=== PATIENT | male | born 1950 | race Caucasian/White ===

== ENCOUNTER 2020-12-03 06:35 | Outpatient (CLI) | payer BC, MEDICARE ==
[2020-12-03 07:09] LABS: BASOPHILS # (AUTO) 0.1 10^3/uL (0.0-0.1); BASOPHILS % (AUTO) 0.9 %; EOSINOPHILS # (AUTO) 0.4 10^3/uL (0.0-0.7); EOSINOPHILS % (AUTO) 5.7 %; HCT - HEMATOCRIT 39.1 % (42.0-52.0); HGB - HEMOGLOBIN 13.2 g/dL (14.0-18.0); LYMPHOCYTES # (AUTO) 2.3 10^3/uL (1.5-3.5); LYMPHOCYTES % (AUTO) 33.3 %; MEAN CORPUSCULAR HGB CONC 33.8 g/dL (32.0-36.0); MEAN CORPUSCULAR VOLUME 100.8 fL (80.0-94.0); MEAN PLATELET VOLUME 9.2 fL (7.4-11.4); MONOCYTES # (AUTO) 0.4 10^3/uL (0.0-1.0); MONOCYTES % (AUTO) 6.2 %; NEUTROPHILS # (AUTO) 3.7 10^3/uL (1.5-6.6); NEUTROPHILS % (AUTO) 53.2 %; PLT - PLATELET COUNT 86 10^3/uL (130-450); RED BLOOD COUNT 3.88 10^6/uL (4.70-6.10); RED CELL DISTRIBUTION WIDTH 13.7 % (12.0-15.0)
[2020-12-03 07:26] LABS: ALBUMIN 3.1 g/dL (3.2-5.5); BILIRUBIN,DIRECT 0.7 mg/dL (0.1-0.5); BILIRUBIN,TOTAL 2.8 mg/dL (0.2-1.0); CALCIUM 8.7 mg/dL (8.5-10.3); CREATININE 0.9 mg/dL (0.6-1.2); INR 1.2 (0.8-1.2); POTASSIUM 3.9 mmol/L (3.5-5.0); PT - PROTHROMBIN TIME 13.4 secs (9.9-12.6); TOTAL PROTEIN 7.1 g/dL (6.7-8.2)
[2020-12-03 11:48] LABS: ESTIMATED AVERAGE GLUCOSE 82 mg/dL (70-100); HEMOGLOBIN A1c% 4.5 % (4.27-6.07)
== END 2020-12-03 06:36 | disposition home or self-care (01) ==
LOC: LAB 06:35
DX: K74.69 Other cirrhosis of liver (principal); R73.03 Prediabetes
CPT/HCPCS: 36415; 80048; 80076; 82105; 82977; 83036; 83540; 84466; 85025; 85610

== ENCOUNTER 2021-05-06 08:00 | Outpatient (CLI) | payer BC, MEDICARE ==
[2021-05-06 06:20] LABS: ALBUMIN 2.6 g/dL (3.2-5.5); BILIRUBIN,TOTAL 3.5 mg/dL (0.2-1.0); CALCIUM 8.3 mg/dL (8.5-10.3); CREATININE 0.8 mg/dL (0.6-1.2); PHOSPHORUS 2.7 mg/dL (2.5-4.6); TOTAL PROTEIN 6.5 g/dL (6.7-8.2)
== END 2021-05-06 23:59 ==
LOC: LAB 08:00
PROVIDERS: ATTEND Internal Medicine
DX: K74.69 Other cirrhosis of liver (principal); R60.1 Generalized edema
CPT/HCPCS: 36415; 80069; 80076; 83540; 83880; 84466

== ENCOUNTER 2021-07-14 05:50 | Outpatient (CLI) | payer BC ==
[2021-07-14 06:08] LABS: BASOPHILS # (AUTO) 0.1 10^3/uL (0.0-0.1); BASOPHILS % (AUTO) 0.9 %; EOSINOPHILS # (AUTO) 0.4 10^3/uL (0.0-0.7); EOSINOPHILS % (AUTO) 6.4 %; HCT - HEMATOCRIT 36.1 % (42.0-52.0); HGB - HEMOGLOBIN 12.2 g/dL (14.0-18.0); LYMPHOCYTES # (AUTO) 1.7 10^3/uL (1.5-3.5); LYMPHOCYTES % (AUTO) 25.6 %; MEAN CORPUSCULAR HEMOGLOBIN 34.1 pg (27.0-31.0); MEAN CORPUSCULAR HGB CONC 33.8 g/dL (32.0-36.0); MEAN CORPUSCULAR VOLUME 100.8 fL (80.0-94.0); MEAN PLATELET VOLUME 9.5 fL (7.4-11.4); MONOCYTES # (AUTO) 0.5 10^3/uL (0.0-1.0); MONOCYTES % (AUTO) 7.2 %; NEUTROPHILS % (AUTO) 59.6 %; PLT - PLATELET COUNT 95 10^3/uL (130-450); RED BLOOD COUNT 3.58 10^6/uL (4.70-6.10); RED CELL DISTRIBUTION WIDTH 14.5 % (12.0-15.0); WHITE BLOOD COUNT 6.7 x10^3/uL (4.8-10.8)
[2021-07-14 06:18] LABS: ALBUMIN 2.4 g/dL (3.2-5.5); BILIRUBIN,DIRECT 1.2 mg/dL (0.1-0.5); BILIRUBIN,TOTAL 3.5 mg/dL (0.2-1.0); CALCIUM 8.1 mg/dL (8.5-10.3); POTASSIUM 3.8 mmol/L (3.5-5.0); TOTAL PROTEIN 7.2 g/dL (6.7-8.2)
[2021-07-15 10:24] LABS: INR 1.4 (0.8-1.2); PT - PROTHROMBIN TIME 15.2 secs (9.9-12.6)
== END 2021-07-14 05:51 | disposition home or self-care (01) ==
LOC: LAB 05:50
PROVIDERS: ATTEND Internal Medicine
DX: K74.69 Other cirrhosis of liver (principal)
CPT/HCPCS: 36415; 80048; 80076; 85025; 85610; 85730

== ENCOUNTER 2021-07-24 05:43 | Outpatient (CLI) | payer BC ==
[2021-07-24 06:11] LABS: BASOPHILS # (AUTO) 0.1 10^3/uL (0.0-0.1); EOSINOPHILS # (AUTO) 0.5 10^3/uL (0.0-0.7); HCT - HEMATOCRIT 35.5 % (42.0-52.0); HGB - HEMOGLOBIN 12.1 g/dL (14.0-18.0); LYMPHOCYTES # (AUTO) 1.8 10^3/uL (1.5-3.5); LYMPHOCYTES % (AUTO) 29.2 %; MEAN CORPUSCULAR HEMOGLOBIN 34.5 pg (27.0-31.0); MEAN CORPUSCULAR HGB CONC 34.1 g/dL (32.0-36.0); MEAN CORPUSCULAR VOLUME 101.1 fL (80.0-94.0); MEAN PLATELET VOLUME 9.3 fL (7.4-11.4); MONOCYTES # (AUTO) 0.4 10^3/uL (0.0-1.0); NEUTROPHILS # (AUTO) 3.4 10^3/uL (1.5-6.6); NEUTROPHILS % (AUTO) 54.6 %; PLT - PLATELET COUNT 93 10^3/uL (130-450); RED BLOOD COUNT 3.51 10^6/uL (4.70-6.10); RED CELL DISTRIBUTION WIDTH 14.6 % (12.0-15.0); WHITE BLOOD COUNT 6.3 x10^3/uL (4.8-10.8)
[2021-07-24 06:17] LABS: INR 1.3 (0.8-1.2); PT - PROTHROMBIN TIME 14.2 secs (9.9-12.6)
[2021-07-24 06:27] LABS: ALKALINE PHOSPHATASE 142 IU/L (42-121); ALT ALANINE AMINOTRANSFERASE 32 IU/L (10-60); AST ASPARTATE AMINOTRANSFERASE 57 IU/L (10-42); BILIRUBIN,DIRECT 1.1 mg/dL (0.1-0.5); BILIRUBIN,TOTAL 3.3 mg/dL (0.2-1.0); BUN - BLOOD UREA NITROGEN 14 mg/dL (6-20); CALCIUM 8.2 mg/dL (8.5-10.3); CARBON DIOXIDE - CO2 28 mmol/L (21-32); CHLORIDE 101 mmol/L (101-111); CREATININE 1.1 mg/dL (0.6-1.2); GAMMA GLUTAMYL TRANSPEPTIDASE 94 IU/L (8-55); GFR - MDRD 66 (>89); GLUCOSE 116 mg/dL (70-100); IONIZED CALCIUM IF INDICATED YES; POTASSIUM 4.1 mmol/L (3.5-5.0); SODIUM 134 mmol/L (135-145)
[2021-07-24 06:28] LABS: ALBUMIN 2.5 g/dL (3.2-5.5); TOTAL PROTEIN 7.4 g/dL (6.7-8.2)
[2021-07-24 06:36] LABS: VBG PH 7.416 (7.31-7.41)
[2021-07-24 06:37] LABS: CALCIUM, IONIZED 1.15 mmol/L (1.15-1.33)
[2021-07-24 13:24] LABS: ESTIMATED AVERAGE GLUCOSE 88 mg/dL (70-100); HEMOGLOBIN A1c% 4.7 % (4.27-6.07)
[2021-07-24 16:15] LABS: MAGNESIUM 2.3 mg/dL (1.7-2.8); PHOSPHORUS 2.8 mg/dL (2.5-4.6)
== END 2021-07-24 05:44 | disposition home or self-care (01) ==
LOC: LAB 05:43
PROVIDERS: ATTEND Internal Medicine
DX: K74.69 Other cirrhosis of liver (principal); R07.9 Chest pain, unspecified; R94.31 Abnormal electrocardiogram [ECG] [EKG]
CPT/HCPCS: 36415; 80048; 80076; 82330; 82977; 83036; 83735; 83880; 84100; 84484; 85025; 85610

== ENCOUNTER 2021-12-24 12:14 | Outpatient (CLI) | payer BC, MEDICARE ==
[2021-12-24 12:36] LABS: BASOPHILS % (AUTO) 0.5 %; EOSINOPHILS # (AUTO) 0.5 10^3/uL (0.0-0.7); EOSINOPHILS % (AUTO) 6.1 %; HCT - HEMATOCRIT 29.1 % (42.0-52.0); HGB - HEMOGLOBIN 9.7 g/dL (14.0-18.0); LYMPHOCYTES # (AUTO) 1.3 10^3/uL (1.5-3.5); LYMPHOCYTES % (AUTO) 15.8 %; MEAN CORPUSCULAR HGB CONC 33.3 g/dL (32.0-36.0); MEAN CORPUSCULAR VOLUME 105.1 fL (80.0-94.0); MEAN PLATELET VOLUME 10.2 fL (7.4-11.4); MONOCYTES # (AUTO) 0.8 10^3/uL (0.0-1.0); MONOCYTES % (AUTO) 9.6 %; NEUTROPHILS # (AUTO) 5.7 10^3/uL (1.5-6.6); NEUTROPHILS % (AUTO) 67.6 %; PLT - PLATELET COUNT 76 10^3/uL (130-450); RED BLOOD COUNT 2.77 10^6/uL (4.70-6.10); WHITE BLOOD COUNT 8.4 x10^3/uL (4.8-10.8)
[2021-12-24 12:52] LABS: INR 1.9 (0.8-1.2); PT - PROTHROMBIN TIME 21.4 secs (9.9-12.6)
[2021-12-24 13:04] LABS: ALBUMIN 3.5 g/dL (3.2-5.5); ALBUMIN/GLOBULIN RATIO 1.1 (1.0-2.2); BILIRUBIN,TOTAL 10.8 mg/dL (0.2-1.0); CALCIUM 8.5 mg/dL (8.5-10.3); CREATININE 1.8 mg/dL (0.6-1.2); TOTAL PROTEIN 6.7 g/dL (6.7-8.2)
[2021-12-24 19:56] LABS: POTASSIUM 2.5 mmol/L (3.5-5.0)
== END 2021-12-24 12:15 | disposition home or self-care (01) ==
LOC: LAB 12:14
PROVIDERS: ATTEND Internal Medicine
DX: K74.69 Other cirrhosis of liver (principal); K76.7 Hepatorenal syndrome
CPT/HCPCS: 36415; 80053; 81003; 85025; 85610

== ENCOUNTER 2021-12-28 10:31 | Outpatient (CLI) | payer BC, MEDICARE ==
[2021-12-28 11:00] LABS: ALBUMIN 3.2 g/dL (3.2-5.5); ALBUMIN/GLOBULIN RATIO 0.9 (1.0-2.2); BILIRUBIN,TOTAL 10.5 mg/dL (0.2-1.0); CALCIUM 8.4 mg/dL (8.5-10.3); CREATININE 1.8 mg/dL (0.6-1.2); MAGNESIUM 1.3 mg/dL (1.7-2.8); PHOSPHORUS 3.1 mg/dL (2.5-4.6); TOTAL PROTEIN 6.9 g/dL (6.7-8.2)
== END 2021-12-28 10:32 | disposition home or self-care (01) ==
LOC: LAB 10:31
PROVIDERS: ATTEND Internal Medicine
DX: K74.69 Other cirrhosis of liver (principal); K76.7 Hepatorenal syndrome
CPT/HCPCS: 36415; 80053; 83735; 84100

== ENCOUNTER 2022-01-04 15:52 | Outpatient (CLI) | payer BC, MEDICARE ==
[2022-01-04 16:14] LABS: BASOPHILS % (AUTO) 0.5 %; EOSINOPHILS # (AUTO) 0.3 10^3/uL (0.0-0.7); EOSINOPHILS % (AUTO) 3.8 %; HGB - HEMOGLOBIN 9.1 g/dL (14.0-18.0); LYMPHOCYTES # (AUTO) 1.5 10^3/uL (1.5-3.5); MEAN CORPUSCULAR HEMOGLOBIN 34.2 pg (27.0-31.0); MEAN CORPUSCULAR HGB CONC 32.5 g/dL (32.0-36.0); MEAN CORPUSCULAR VOLUME 105.3 fL (80.0-94.0); MEAN PLATELET VOLUME 9.5 fL (7.4-11.4); MONOCYTES # (AUTO) 0.6 10^3/uL (0.0-1.0); NEUTROPHILS # (AUTO) 5.2 10^3/uL (1.5-6.6); NEUTROPHILS % (AUTO) 67.2 %; PLT - PLATELET COUNT 88 10^3/uL (130-450); RED BLOOD COUNT 2.66 10^6/uL (4.70-6.10); RED CELL DISTRIBUTION WIDTH 16.8 % (12.0-15.0); WHITE BLOOD COUNT 7.7 x10^3/uL (4.8-10.8)
[2022-01-04 16:22] LABS: ALBUMIN 2.9 g/dL (3.2-5.5); ALBUMIN/GLOBULIN RATIO 0.7 (1.0-2.2); BILIRUBIN,TOTAL 8.4 mg/dL (0.2-1.0); CALCIUM 8.7 mg/dL (8.5-10.3); CREATININE 2.1 mg/dL (0.6-1.2); MAGNESIUM 1.8 mg/dL (1.7-2.8); PHOSPHORUS 3.8 mg/dL (2.5-4.6); POTASSIUM 4.7 mmol/L (3.5-5.0); TOTAL PROTEIN 7.1 g/dL (6.7-8.2)
== END 2022-01-04 15:53 | disposition home or self-care (01) ==
LOC: LAB 15:52
PROVIDERS: ATTEND Internal Medicine
DX: K74.69 Other cirrhosis of liver (principal); N18.32 Chronic kidney disease, stage 3b
CPT/HCPCS: 36415; 80053; 83735; 84100; 85025

== ENCOUNTER 2022-02-05 11:40 | Outpatient (CLI) | payer MEDICARE, BC ==
[2022-02-05 20:32] LABS: INR 1.5 (0.8-1.2); PT - PROTHROMBIN TIME 16.2 secs (9.9-12.6)
== END 2022-02-05 23:59 | disposition home or self-care (01) ==
LOC: LAB.R 11:40
PROVIDERS: ATTEND Internal Medicine
DX: K74.69 Other cirrhosis of liver (principal); N18.32 Chronic kidney disease, stage 3b
CPT/HCPCS: 85610

== ENCOUNTER 2022-02-05 12:26 | Outpatient (CLI) | payer BC, MEDICARE ==
[2022-02-05 12:33] LABS: BASOPHILS # (AUTO) 0.1 10^3/uL (0.0-0.1); BASOPHILS % (AUTO) 0.7 %; EOSINOPHILS # (AUTO) 0.4 10^3/uL (0.0-0.7); EOSINOPHILS % (AUTO) 5.3 %; HCT - HEMATOCRIT 28.3 % (42.0-52.0); HGB - HEMOGLOBIN 9.4 g/dL (14.0-18.0); LYMPHOCYTES # (AUTO) 1.6 10^3/uL (1.5-3.5); LYMPHOCYTES % (AUTO) 21.7 %; MEAN CORPUSCULAR HGB CONC 33.2 g/dL (32.0-36.0); MEAN CORPUSCULAR VOLUME 108.4 fL (80.0-94.0); MEAN PLATELET VOLUME 9.9 fL (7.4-11.4); MONOCYTES # (AUTO) 0.6 10^3/uL (0.0-1.0); MONOCYTES % (AUTO) 8.6 %; NEUTROPHILS # (AUTO) 4.5 10^3/uL (1.5-6.6); NEUTROPHILS % (AUTO) 63.6 %; PLT - PLATELET COUNT 79 10^3/uL (130-450); RED BLOOD COUNT 2.61 10^6/uL (4.70-6.10); RED CELL DISTRIBUTION WIDTH 15.2 % (12.0-15.0); WHITE BLOOD COUNT 7.1 x10^3/uL (4.8-10.8)
[2022-02-05 12:46] LABS: ALBUMIN 2.3 g/dL (3.2-5.5); ALBUMIN/GLOBULIN RATIO 0.5 (1.0-2.2); BILIRUBIN,TOTAL 3.8 mg/dL (0.2-1.0); CALCIUM 8.2 mg/dL (8.5-10.3); CREATININE 2.3 mg/dL (0.6-1.2); MAGNESIUM 1.9 mg/dL (1.7-2.8); POTASSIUM 4.5 mmol/L (3.5-5.0); TOTAL PROTEIN 6.9 g/dL (6.7-8.2)
== END 2022-02-05 12:27 | disposition home or self-care (01) ==
LOC: LAB.R 12:26
PROVIDERS: ATTEND Internal Medicine
DX: K74.69 Other cirrhosis of liver (principal); N18.32 Chronic kidney disease, stage 3b
CPT/HCPCS: 80053; 83735; 85025; 85610

== ENCOUNTER 2022-02-08 12:19 | Outpatient (CLI) | payer BC, MEDICARE | END 2022-02-08 12:20 | disposition critical access hospital (66) | LOC: EMS 12:19 | DX: M79.89 Other specified soft tissue disorders (principal); R50.9 Fever, unspecified; M79.661 Pain in right lower leg | CPT/HCPCS: A0425; A0427 ==

== ENCOUNTER 2022-02-08 12:54 | Inpatient (IN) | payer MEDICARE, BC ==
[2022-02-08] MEDS ORDERED: CLINDAMYCIN 900 MG/50 ML 50 ML IV ONE (13:44)
[2022-02-08] MEDS ORDERED: VANCOMYCIN INJ 3 GM in SODIUM CHLORIDE 0.9% 500 ML IV STA (13:44)
--- NOTE | 2022-02-08 13:46 | ED Physician Documentation ---
History of Present Illness - Stated complaint Stated Complaint: R LEG INFECTION - Chief complaint Chief Complaint: Ext Problem - History obtained from History obtained from: Patient - History of Present Illness Timing: Last night Pain level max: 8 Pain level now: 8 - Additonal information Additional information: Patient is a 71-year-old male who presents to the emergency department with increased redness and pain to the right lower extremity. He states he has a history of chronic edema in both legs, Has had cellulitis in the past. No fevers. No chills. He states that he has chronic liver disease. He states that when the redness and pain develops is usually when he has cellulitis. No fevers. No chills. Review of Systems Ten Systems: 10 systems reviewed and negative Constitutional: denies: Fever, Chills Throat: denies: Sore throat Cardiac: denies: Chest pain / pressure, Palpitations Respiratory: denies: Cough GI: denies: Abdominal Pain, Vomiting, Diarrhea Skin: denies: Rash Musculoskeletal: denies: Neck pain, Back pain Neurologic: denies: Headache PD PAST MEDICAL HISTORY - Past Medical History Past Medical History: Yes GI: Other (chronic liver disease) HEENT: None Psych: None Musculoskeletal: Other (chronic edema) - Allergies Allergies/Adverse Reactions: Allergies Allergy/AdvReac Type Severity Reaction Status Date / Time Penicillins Allergy Hives Verified 02/08/22 13:08 - Living Situation Living Situation: reports: With family Living Arrangement: reports: [facility] - Social History Does the pt have substance abuse?: No - Family History Family history: reports: Non contributory PD ED PE NORMAL - Vitals Vital signs reviewed: Yes - General General: Alert and oriented X 3, No acute distress - HEENT HEENT: Moist mucous membranes - Neck Neck: Supple, no meningeal sign - Cardiac Cardiac: RRR - Respiratory Respiratory: No respiratory distress, Clear bilaterally - Abdomen Abdomen: Soft, Non tender, Non distended - Derm Derm: Warm and dry - Extremities Extremities: Other (severe edema and swelling B LE, erythema to the R LE. NVI. no drainage. erythema is from the ankle to the knee) - Neuro Neuro: Alert and oriented X 3 Results - Vitals Vitals: Vital Signs - 24 hr 02/08/22 02/08/22 13:08 13:13 Temperature 37.1 C 37.1 C Heart Rate 100 100 Respiratory 22 22 Rate Blood Pressure 138/51 H 138/51 H O2 Saturation 99 99 Oxygen O2 Source Room air - Labs Labs: Laboratory Tests 02/08/22 02/08/22 02/08/22 14:02 14:02 14:02 WBC 11.0 H RBC 2.61 L Hgb 9.4 L Hct 28.5 L MCV 109.2 H MCH 36.0 H MCHC 33.0 RDW 15.1 H Plt Count 70 L MPV 10.0 Neut # (Auto) 9.7 H Lymph # (Auto) 0.8 L Dukes # (Auto) 0.4 Eos # (Auto) 0.1 Baso # (Auto) 0.0 Absolute Nucleated RBC 0.00 Nucleated RBC % 0.0 ESR PT 16.4 H INR 1.5 H Sodium 133 L Potassium 5.4 H Chloride 100 L Carbon Dioxide 23 Anion Gap 10.0 BUN 39 H Creatinine 2.3 H Estimated GFR (MDRD) 28 L Glucose 135 H Lactic Acid Calcium 8.2 L Total Bilirubin 5.6 H AST 61 H ALT 33 Alkaline Phosphatase 169 H C-Reactive Protein 6.5 H Total Protein 7.2 Albumin 2.4 L Globulin 4.8 H Albumin/Globulin Ratio 0.5 L Lipase 53 H Urine Color Urine Clarity Urine pH Ur Specific [place] Urine Protein Urine Glucose (UA) Urine Ketones Urine Occult Blood Urine Nitrite Urine Bilirubin Urine Urobilinogen Ur Leukocyte Esterase Ur Microscopic Review Urine Culture Comments 02/08/22 02/08/22 02/08/22 14:02 14:02 14:48 WBC RBC Hgb Hct MCV MCH MCHC RDW Plt Count MPV Neut # (Auto) Lymph # (Auto) Dukes # (Auto) Eos # (Auto) Baso # (Auto) Absolute Nucleated RBC Nucleated RBC % ESR 69 H PT INR Sodium Potassium Chloride Carbon Dioxide Anion Gap BUN Creatinine Estimated GFR (MDRD) Glucose Lactic Acid 2.9 H Calcium Total Bilirubin AST ALT Alkaline Phosphatase C-Reactive Protein Total Protein Albumin Globulin Albumin/Globulin Ratio Lipase Urine Color DARK YELLOW Urine Clarity CLEAR Urine pH 5.0 Ur Specific [place] 1.020 Urine Protein NEGATIVE Urine Glucose (UA) NEGATIVE Urine Ketones NEGATIVE Urine Occult Blood NEGATIVE Urine Nitrite NEGATIVE Urine Bilirubin NEGATIVE Urine Urobilinogen 0.2 (NORMAL) Ur Leukocyte Esterase NEGATIVE Ur Microscopic Review NOT INDICATED Urine Culture Comments NOT INDICATED PD MEDICAL DECISION MAKING - ED course Complexity details: reviewed results, re-evaluated patient, considered differential, d/w patient, d/w family, d/w medical cost consultant ED course: Patient is a 71-year-old male with significant cellulitis of the right lower extremity, leukocytosis and elevated lactate. The lactate may be falsely elevated secondary to his chronic liver disease. Blood cultures were drawn. IV antibiotic started. We will admit for further care. Discussed the case with Dr. Padilla, hospitalist who accepts. When Dr. Padilla was speaking with the patient, he initially declined admission stating he wanted to go home, but after speaking with his and speaking with the patient again, he agrees to be admitted. This document was made in part using voice recognition software. While efforts are made to proofread this document, sound alike and grammatical errors may occur. Departure - Departure Disposition: 66 [facility] DC/Xfer Clinical Impression: Chronic liver disease, Super obesity Cellulitis Qualifiers: Site of cellulitis: extremity Site of cellulitis of extremity: lower extremity Laterality: right Qualified Code(s): L03.115 - Cellulitis of right lower limb Chronic renal failure Qualifiers: Chronic kidney disease stage: unspecified stage Qualified Code(s): N18.9 - Chronic kidney disease, unspecified Condition: Stable Discharge Date/Time: 02/08/22 16:00
[2022-02-08 14:11] LABS: BASOPHILS % (AUTO) 0.3 %; EOSINOPHILS # (AUTO) 0.1 10^3/uL (0.0-0.7); EOSINOPHILS % (AUTO) 0.7 %; HCT - HEMATOCRIT 28.5 % (42.0-52.0); HGB - HEMOGLOBIN 9.4 g/dL (14.0-18.0); LYMPHOCYTES # (AUTO) 0.8 10^3/uL (1.5-3.5); LYMPHOCYTES % (AUTO) 6.8 %; MEAN CORPUSCULAR VOLUME 109.2 fL (80.0-94.0); MONOCYTES # (AUTO) 0.4 10^3/uL (0.0-1.0); MONOCYTES % (AUTO) 3.9 %; NEUTROPHILS # (AUTO) 9.7 10^3/uL (1.5-6.6); PLT - PLATELET COUNT 70 10^3/uL (130-450); RED BLOOD COUNT 2.61 10^6/uL (4.70-6.10); RED CELL DISTRIBUTION WIDTH 15.1 % (12.0-15.0)
[2022-02-08] MEDS ORDERED: MORPHINE 2 MG/ML CARPUJECT IVP STA (14:13)
[2022-02-08 14:15] LABS: INR 1.5 (0.8-1.2); PT - PROTHROMBIN TIME 16.4 secs (9.9-12.6)
[2022-02-08 14:24] LABS: LACTIC ACID, VENOUS 2.9 mmol/L (0.5-2.2)
[2022-02-08 14:28] LABS: ALBUMIN 2.4 g/dL (3.2-5.5); ALBUMIN/GLOBULIN RATIO 0.5 (1.0-2.2); BILIRUBIN,TOTAL 5.6 mg/dL (0.2-1.0); CALCIUM 8.2 mg/dL (8.5-10.3); CRP - C-REACTIVE PROTEIN 6.5 mg/dL (0-1.0); POTASSIUM 5.4 mmol/L (3.5-5.0); TOTAL PROTEIN 7.2 g/dL (6.7-8.2)
[2022-02-08 14:47] LABS: CREATININE 2.3 mg/dL (0.6-1.2)
[2022-02-08] MEDS ORDERED: HYDROcod/ACETAM 5/325 MG TABLET PO STA (14:54)
[2022-02-08 14:57] LABS: BILIRUBIN,URINE NEGATIVE (NEGATIVE); GLUCOSE, URINE (UA) NEGATIVE (NEGATIVE); KETONES,URINE (UA) NEGATIVE (NEGATIVE); LEUKOCYTE ESTERASE, URINE NEGATIVE (NEGATIVE); NITRITE,URINE NEGATIVE (NEGATIVE); OCCULT BLOOD,URINE NEGATIVE (NEGATIVE); PROTEIN,URINE NEGATIVE (NEGATIVE); UROBILINOGEN,URINE 0.2 (NORMAL) E.U./dL (NORMAL)
[2022-02-08] MEDS ORDERED: ONDANSETRON ODT 4 MG TABLET TL PRN (14:57)
[2022-02-08] MEDS ORDERED: oxyCODONE 5 MG TABLET PO PRN (14:57)
[2022-02-08] MEDS ORDERED: SODIUM CHLORIDE FLUSH 0.9% 10 ML SYRINGE IVP PRN (14:57)
[2022-02-08 14:58] LABS: CLARITY,URINE CLEAR (CLEAR)
--- NOTE | 2022-02-08 15:54 | HISTORY & PHYSICAL EXAMINATION ---
Chief Complaint - Chief Complaint Chief Complaint: right leg redness and infection History of Present Illness - Admitted From Admitted From:: home via ambulance - History Obtained From Records Reviewed: [facility] History obtained from: [facility] Exam Limitations: none - History of Present Illness HPI Comment/Other: 71-year-old male who states that he has long-term alcoholic liver disease, that was brought in by ambulance because his right lower leg started to get infected yesterday and is getting worse. He has a history of chronic leg edema. In the emergency room temperature was 37.1. Heart rate 100. Blood pressure 138/51. 99% on room air. He is 5 feet 9 inches tall weighs 160 kg. On examination he has cellulitis that starts in the top of his right foot and goes all the way up the lateral aspect of his right leg. His white cell count is 11,000. Hemoglobin is 9.4. Platelets 70. INR 1.5. BUN is 39, creatinine 2.3. A year ago his creatinine was normal. Liver enzymes show a bili of 5.6, AST 61, ALT 33. C-reactive protein is 6.5. Blood cultures have been done. He is received vancomycin and clindamycin in the emergency room since he is allergic to penicillin. The hospitalist service has now been asked to admit the patient. History - Past Medical History GI: reports: Other (chronic liver disease) HEENT: reports: None Psych: reports: None Musculoskeletal: reports: Other (chronic edema) - Family & Social History Living arrangement: detention Living Situation: With family Meds/Allgy - Allergies Allergies/Adverse Reactions: Allergies Allergy/AdvReac Type Severity Reaction Status Date / Time Penicillins Allergy Hives Verified 02/08/22 13:08 Exam - Vital Signs Vital Signs: Vital Signs x48h Temp Pulse Resp BP Pulse Ox 02/08/22 13:13 37.1 C 100 22 138/51 H 99 02/08/22 13:08 37.1 C 100 22 138/51 H 99 Conclusion/Plan - Problem List (1) Cellulitis Qualifiers: Site of cellulitis: extremity Site of cellulitis of extremity: lower extremity Laterality: right Qualified Code(s): L03.115 - Cellulitis of right lower limb - Lab Results Lab results reviewed: Yes Fish Bones: 02/08/22 14:02 02/08/22 14:02
--- NOTE | 2022-02-08 15:56 | ADVANCE CARE PLANNING NOTE ---
Advance Care Planning - Planning Encounter Date: 02/08/22 Time: 15:55 Purpose: Establish care goals in a patient who does not want to be admitted Parties in Attendance: , patient, hospitalist Decisional Capacity of the Patient: Alert, oriented, and says that he still makes his own decisions - Diagnosis for Encounter (1) Alcoholic liver disease Summary: 71-year-old gentleman that was diagnosed with cirrhosis in 2014. At that point in time he had "a year to live". He is managed outlive that prediction. Recently hospitalized from November 28 December 17 [facility]. Discharge after aggressive diuresis and severe renal failure. He was told that he had a few weeks to live. Overall he is very angry with providers and feels like we are bad at predicting. Is worse creatinine at was 3.8. Bilirubin and creatinine have improved since being home and his medications adjusted. Meld score is 19.6% on today's calculation from 27 points - Encounter Subjective/Patient's Story: Cirrhosis gradually worsened over the last 2 years. Up until now he has been actually been able to travel quite a bit, maintain a good quality of life. He was recently hospitalized [facility] November 28 December 17 and this is the first time his been hospitalized for his Mazariegos. He is very angry about his experience with them. Has no kesha or trust in the system. He was discharged from [facility] with a poor prognosis and he was told that he was "going to in the next few weeks". He has survived that prognosis and feels that they are wrong in their assessment. Overall he does recognize that he has a terrible disease with his cirrhosis. But he does not th ink he is going to immediately. He has managed to survive since 2014 when he was first diagnosed. As such, he is declined hospice referral. He also does not want to be sedated with morphine or Ativan. His primary care provider has sent in paperwork for POLST form and resuscitation status. He and his are going to be discussing that and had not gotten around to it. As such at this time he wishes to be a full code since he has not discussed it fully with his . Objective/Medical Story: I have requested records from [facility] and those are pending. He is followed by Dr. Mitchel Davis at [facility] on [address]. Last seen by video teleconference about a week ago. He was diagnosed with nonalcoholic liver disease in 2014 and has had steady progression of his disease since then. He states that he has had chronic leg edema even before the cirrhosis. He had a "spider bite" that caused bubbling of his skin years ago, approximately 2004, and that is why his legs are swollen and red in addition to the cirrhosis. He describes his life is relatively stable and spite of this diagnosis of Mazariegos. He was able to walk, dress himself, feed himself. They have gone to [place] 3 or 4 times since his diagnosis. Starting in 2019 he developed edema and decreased mobility around Janelle time. Without any intervention or change in medication, he would then spontaneously urinate quite a bit in June 2020 and got rid of all the excess water weight he had. He did that again in the fall 2020 and again self diuresed in June 2021. He is very angry that his is giving me the history. He keeps on interjecting saying "I am perfectly able to tell my story". Unfortunately, the patient is very r epetitive, conversation points wander and he cannot answer me at time, and I do need to refer to his several times. That makes him even angrier. He had already stated that he wanted to leave and go home in the emergency room and I had discontinued his admit orders. He then changed his mind and asked to stay only overnight. But he keeps on interjecting that he may want to leave now and change his mind again. Even though he was able to self diurese in June 2021, he started having increased water retention, leg edema by the Spring. It was complicated by knee pain. So even though he needed to increase his diuretics he was skipping doses because of his knee pain and the frequent urination that the diuretic would induce. This finally culminated in a creatinine that was elevated, severe leg edema, and a new shortness of breath that he hadn't had before. He was admitted to [facility] November 28 through December 17. He then starts raising his voice again and telling me that they almost killed him. He states they over diuresed him and "almost killed my kidneys". They told him that he had a limited life span and probably only had a few more weeks to live. They did r ecommend hospice but he is refused. He had a "bad experience with hospice" when his mother in [place]. He also wants to maintain his sensorium and disagrees with the use of morphine and Ativan to help with the dying process. Since discharge, he has been followed by his primary care provider who has judiciously adjusted medications. The patient is satisfied in improving [facility] wrong because he is "still alive even after this and I was going to be ". He also explains that his primary care provider disagrees with [facility] and that his prognosis is not that serious. He has had increasing edema again over the last few days. Starting yesterday his right leg became slightly red and painful, and over the course the day is continue to progress, so that now, it is up to his right knee. He is become very sedentary over the last couple of weeks. He is now using a lift chair. Because of that he has developed a having skin breakdown of his sacrum. He denies fever, chills. Denies any abdominal pain. Describes chronic leg edema, abdominal wall edema, and scrotal edema that severe. In the emergency room temperature was 37.1. Heart rate 100. Blood pressure 138/51. Respirations 22. 99% on room air. He is a morbidly obese male. Oriented to person and place. Prefers to lay on his left side and reminds the nurses of that repetitively. He repeats his story at least 5 times about his dislike of [facility] and that they almost killed him. He has diffuse anasarca, but bedside ultrasound in the ER does not show fluid wave. Minimal ascites. Scrotum is huge. The legs have skin changes chronic venous stasis with deformity of the ankles. The right leg is covered in a red hot skin discoloration starting at the top of his right foot and extending all the way up two thirds of the stuart. He has satellite red dots above that going almost to the knee. He is allergic to penicillin and has received vancomycin, clindamycin, in the ER. We are placing him in observation status. He states he does not want to stay longer than 1 midnight. History - Past Medical History Cardiovascular: reports: None Respiratory: reports: Shortness of breath (With his anasarca) Endocrine/Autoimmune: reports: Other (Morbid obesity) GI: reports: Cirrhosis, Other (chronic liver disease) : reports: Chronic bladder infection (Since childhood. Denies history of prostate enlargement) HEENT: reports: None Psych: reports: None Musculoskeletal: reports: Chronic back pain, Other (chronic edema) Derm: reports: None, Other (Specifically denies history of MRSA) Goals of Care: He would like to go home as soon as possible. Has reluctantly agreed to 1 overnight stay and will reassess tomorrow morning. He would like to go home with oral antibiotics. He will follow-up with his primary care provider about what he needs to do next. Plan: 1. Overnight stay 2. Discharged on Keflex 3. Full CODE STATUS 4. Consider filling out POLST form in the next 1 to 2 weeks Code Status: Attempt Resuscitation Time spent on advance care plannin minutes
--- NOTE | 2022-02-08 16:15 | HISTORY & PHYSICAL EXAMINATION ---
Chief Complaint - Chief Complaint Chief Complaint: painful right leg redness History of Present Illness - Admitted From Admitted From:: home - History Obtained From Records Reviewed: [facility] History obtained from: and patient Exam Limitations: he is repetitive, raised voice at RNs alternates between wanting leave/stay - History of Present Illness HPI Comment/Other: I have requested records from [facility] and those are pending. He is followed by Dr. Mitchel Davis at [facility] on [address]. Last seen by video teleconference about a week ago. He was diagnosed with nonalcoholic liver disease in 2014 and has had steady progression of his disease since then. He states that he has had chronic leg edema even before the cirrhosis. He had a "spider bite" that caused bubbling of his skin years ago, approximately 2004, and that is why his legs are swollen and red in addition to the cirrhosis. He describes his life is relatively stable and spite of this diagnosis of Mazariegos. He was able to walk, dress himself, feed himself. [place] have gone to [place] 3 [place] 4 times since his diagnosis. Starting in 2019 he developed edema and decreased mobility around [place] time. Without any intervention or change in medication, he would then spontaneously urinate quite a bit in June 2020 and got rid of all the excess water weight he had. He did that again in the fall 2020 and again self diuresed in June 2021. He is very angry that his is giving me the history. He keeps on interjecting saying "I am perfectly able to tell my story". Unfortunately, the patient is very repetitive, conversation points wander and he cannot answer me at time, and I do need to refer to his several times. That makes him even angrier. He had already stated that he wanted to leave and go home in the emergency room and I had discontinued his admit orders. He then changed his mind and asked to stay only overnight. But he keeps on interjecting that he may want to leave now and change his mind again. Even though he was able to self diurese in June 2021, he started having increased water retention, leg edema by the Spring. It was complicated by knee pain. So even though he needed to increase his diuretics he was skipping doses because of his knee pain and the frequent urination that the diuretic would induce. This finally culminated in a creatinine that was elevated, severe leg edema, and a new shortness of breath that he hadn't had before. He was admitted to [facility] November 28 through December 17. He then starts raising his voice again and telling me that they almost killed him. He states they over diuresed him and "almost killed my kidneys". They told him that he had a limited life span and probably only had a few more weeks to live. They did recommend hospice but he is refused. He had a "bad experience with hospice" when his mother in [place]. He also wants to maintain his sensorium and disagrees with the use of morphine and Ativan to help with the dying process. Since discharge, he has been followed by his primary care provider who has judiciously adjusted medications. The patient is satisfied in improving [facility] wrong because he is "still alive even after this and I was going to be ". He also explains that his primary care provider disagrees with [facility] and that his prognosis is not that serious. He has had increasing edema again over the last few days. Starting yesterday his right leg became slightly red and painful, and over the course the day is continue to progress, so that now, it is up to his right knee. He is become very sedentary over the last couple of weeks. He is now using a lift chair. Because of that he has developed a having skin breakdown of his sacrum. He denies fever, chills. Denies any abdominal pain. Describes chronic leg edema, abdominal wall edema, and scrotal edema that severe. In the emergency room temperature was 37.1. Heart rate 100. Blood pressure 138/51. Respirations 22. 99% on room air. He is a morbidly obese male. Oriented to person and place. Prefers to lay on his left side and reminds the nurses of that repetitively. He repeats his story at least 5 times about his dislike of [facility] and that they almost killed him. He has diffuse anasarca, but bedside ultrasound in the ER does not show fluid wave. Minimal ascites. Scrotum is huge. The legs have skin changes chronic venous stasis with deformity of the ankles. The right leg is covered in a red hot skin discoloration starting at the top of his right foot and extending all the way up two thirds of the stuart. He has satellite red dots above that going almost to the knee. He is allergic to penicillin and has received vancomycin, clindamycin, in the ER. We are placing him in observation status. He states he does not want to stay longer than 1 midnight. History - Past Medical History Cardiovascular: reports: None Respiratory: reports: Shortness of breath (With his anasarca) Endocrine/Autoimmune: reports: Other (Morbid obesity) GI: reports: Cirrhosis, Other (chronic liver disease) : reports: Chronic bladder infection (Since childhood. Denies history of prostate enlargement) HEENT: reports: None Psych: reports: None Musculoskeletal: reports: Chronic back pain, Other (chronic edema) Derm: reports: None, Other (Specifically denies history of MRSA) - Family & Social History Family History Comment/Other: Dad at approximately 69 of heart disease. Mom at approximately age 70 of pancreatic cancer. 1 sister is healthy. No children Living arrangement: At home Living Situation: With spouse/s.o. Social History Notes: He never had a problem with alcohol abuse. Was a non- smoker. Originally from [facility]. Spent many years in [place] and [place] but it grew too hot so he moved to [facility] 25 years ago. 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 - Substance History Use: Uses substance without health or social issues: NONE Abuse: Recurrent use of substance despite neg consequences: NONE Dependence: Experiences withdrawal or developed tolerances: NONE - POLST Patient has POLST: No POLST Status: Full Code Meds/Allgy - Allergies Allergies/Adverse Reactions: Allergies Allergy/AdvReac Type Severity Reaction Status Date / Time Penicillins Allergy Hives Verified 02/08/22 13:08 Review of Systems - Constitutional Constitutional: reports: Fatigue. denies: Fever, Chills, Malaise, Weakness, Poor appetite, Diaphoresis, Night sweats - Eyes Eyes: denies: Pain, Irritation, Amaurosis - Ears, Nose & Throat Ears, Nose & Throat: denies: Ear pain, Hearing loss, Hearing aids, Tinnitus, Sore throat, Hoarseness - Cardiovascular Cariovascular: reports: Edema, Exertional dyspnea, Decr. exercise tolerance. denies: Irregular heart rate, Palpitations, Chest pain, Lightheadedness, Syncope, Orthopnea - Respiratory Respiratory: reports: SOB with exertion. denies: Cough, Sputum production, Wheezing, SOB at rest - Gastrointestinal Gastrointestinal: denies: Abdominal pain, Abdominal distention, Constipation, Diarrhea - Genitourinary Genitourinary: reports: Frequency, Incontinence, Nocturia - Musculoskeletal Musculoskeletal: reports: Back pain. denies: Muscle pain, Muscle aches - Integumentary Integumentary: reports: Other (Recent skin breakdown of sacrum due to sedentary status and a lift chair). denies: Rash, Pruritis, Lesions - Neurological Neurological: reports: General weakness. denies: Focal weakness, Headache, Dizziness, Memory problems, Pre-existing deficit, Abnormal gait - Psychiatric Psychiatric: denies: Depression, Anxiety, Suicidal - Endocrine Endocrine: denies: Polyuria, Polydypsia, Polyphagia - Hematologic/Lymphatic Hematologic/Lymphatic: denies: Anemia, Bruising, Petechiae Prior Level of Functionality: When he was discharged from [facility] he was discharged with a walker and a cane but he is rarely used it. He has been able to be independent with his ambulation until this week. Dresses himself, needs help with that. Never really did housework or mow the lawn and such. Exam - Vital Signs Reviewed Vital Signs: Yes Vital Signs: Vital Signs x48h Temp Pulse Resp BP Pulse Ox 02/08/22 15:13 37.0 C 98 22 130/60 100 02/08/22 13:13 37.1 C 100 22 138/51 H 99 02/08/22 13:08 37.1 C 100 22 138/51 H 99 - Physical Exam General Appearance: positive: Alert, Other (Morbid obese white male, yelling with pain when his right leg is touched, and yelling when I speak to his and he does not want me to get the story from her.) Eyes Bilateral: positive: PERRL, EOMI ENT: positive: No signs of dehydration Neck: positive: No JVD. negative: Stiff neck Respiratory: positive: No respiratory distress. negative: Wheezes, Rales, Rhonchi Cardiovascular: positive: Regular rate & rhythm Abdomen: positive: Nml bowel sounds, No distention, Other (Large, obese pannus with secondary chronic red changes in the pannus between belly and suprapubic area.) Skin: positive: Other (Cellulitis changes of the right lower extremity that extend all the way up the stuart. There is demarcation and then above that there is red dots of spreading cellulitis.It is red, hot, some oozing from cracks and blistering of the anterior stuart) Extremities: positive: Full ROM, Pedal edema (Severe edema of both legs that extends to the lower abdominal pannus, scrotum, sacrum), Other (Ankles deformed from chronic edema as are toes) Neurologic/Psychiatric: positive: Oriented x3, CN's nml (2-12), Motor nml (And that he is moving all extremities but needs a 4 person max assist to be able to transfer him from [facility] to [facility], and needs a two-person assist to roll him over on his left side where he prefers) Conclusion/Plan - Problem List (1) Cellulitis Conclusion/Plan: Long discussion with pharmacy. I was thinking of linezolid to avoid vancomycin toxicity of his kidneys. However with his cirrhosis linezolid would be contraindicated. He has received clindamycin and vancomycin in the ED. I explained to he and his that he does have a penicillin allergy but I should be able to give him Rocephin. He states that he has no antibiotic resistance that he is aware of. Never been diagnosed with MRSA. The vancomycin that we given today should last for at last 48 to 72 hours on the basis of his creatinine. He states that he does not want to stay any longer than tonight. And as such I think he may be able to go home with Keflex 500 mg p.o. 4 times daily depending on how he responds overnight. Qualifiers: Site of cellulitis: extremity Site of cellulitis of extremity: lower extremity Laterality: right Qualified Code(s): L03.115 - Cellulitis of right lower limb (2) Chronic renal failure, stage 3b Conclusion/Plan: Due to hepatorenal failure. Patient states that he is stabilized over the last few weeks. His max creatinine was 3.8 at [facility] as far as he remembers. He is now down to 2.3. We will monitor carefully in the face of vancomycin. He will receive 1 L of fluid. Will resume his usual dosing of medications once pharmacy has verified the list. (3) Cirrhosis, non-alcoholic Conclusion/Plan: His meld score is 27 points or 19.6% mortality. He and his state that they are familiar with a meld score and that it was much worse when he was in the hospital. While they acknowledge that the overall prognosis is poor for him. That he is not going to do well in the next few months, they feel that he will outlive the predicted mortality that has been stated. They have been very hesitant to go to hospice because of their previous experience with hospice and the fact that they feel that he will be oversedated with morphine or Ativan.. Please see advance care planning conversation held under different note (4) Anasarca Conclusion/Plan: As stated above for cirrhosis. We will review his medication list and resume his home medications. (5) Hyperkalemia Conclusion/Plan: Unclear if this is true hyperkalemia or lysis in his blood draw. We will look at records from [facility]. Recheck tomorrow morning. (6) Super obesity Conclusion/Plan: Requires 4 person assist at times to reposition in the bed. He states that he is ambulatory at home. If he is successfully discharged tomorrow, gently explore if he would be candidate for home health PT (7) Anemia Conclusion/Plan: He does not give a history of variceal bleeding. No recent change in the color of his stool. Has had chronic kidney disease for a while now he tells me. I will review [facility] records. Qualifiers: Anemia type: due to chronic kidney disease - Lab Results Lab results reviewed: Yes Wolf Bones: 02/08/22 14:02 02/08/22 14:02
[2022-02-08 17:08] LABS: B. PARAPERTUSSIS- RESP PCR PAN NOT DETECTED; B. PERTUSSIS- RESP PCR PANEL NOT DETECTED; C. PNEUMONIAE- RESP PCR PANEL NOT DETECTED; CORONAVIRUS 229E-RESP PCR NOT DETECTED; CORONAVIRUS HKU1-RESP PCR NOT DETECTED; CORONAVIRUS NL63-RESP PCR NOT DETECTED; CORONAVIRUS OC43-RESP PCR NOT DETECTED; HUMAN METAPNEUMOVIRUS NOT DETECTED; INFLUENZA A- RESP PCR PANEL NOT DETECTED; INFLUENZA B - RESP PCR PANEL NOT DETECTED; M. PNEUMONIAE- RESP PCR PANEL NOT DETECTED; PARAINFLUENZA VIRUS 1 NOT DETECTED; PARAINFLUENZA VIRUS 2 NOT DETECTED; PARAINFLUENZA VIRUS 3 NOT DETECTED; PARAINFLUENZA VIRUS 4 NOT DETECTED; RHINOVIRUS/ENTEROVIRUS NOT DETECTED; RSV- RESP PCR PANEL NOT DETECTED; SARS-CoV-2 -RESP PCR PANEL NOT DETECTED
[2022-02-08 17:43] LABS: LACTIC ACID, VENOUS 4.4 mmol/L (0.5-2.2)
[2022-02-08] MEDS: BACLOFEN 10 MG TABLET PO SCH ×2 (19:10→22:22)
[2022-02-08] MEDS: SODIUM CHLORIDE FLUSH 0.9% 10 ML SYRINGE IVP SCH (19:16)
[2022-02-08] MEDS: SODIUM CHLORIDE 0.9% 1,000 ML IV SCH (19:16)
[2022-02-08 21:00] LABS: LACTIC ACID, VENOUS 4.6 mmol/L (0.5-2.2)
[2022-02-08] MEDS ORDERED: BACLOFEN 10 MG TABLET PO SCH (22:00)
[2022-02-08] MEDS: LACTULOSE 10 GM /15 ML UDC PO SCH ×2 (22:21→22:26)
[2022-02-08] MEDS: SPIRONOLACTONE 25 MG TABLET PO SCH ×2 (22:21→22:26)
[2022-02-09] MEDS ORDERED: HYDROcod/ACETAM 5/325 MG TABLET PO PRN (00:50)
[2022-02-09 01:04] LABS: LACTIC ACID, VENOUS 4.9 mmol/L (0.5-2.2)
[2022-02-09] MEDS: SODIUM CHLORIDE FLUSH 0.9% 10 ML SYRINGE IVP SCH ×3 (01:52→17:18)
[2022-02-09] MEDS: SODIUM CHLORIDE 0.9% 1,000 ML IV SCH (04:57)
[2022-02-09] MEDS: BACLOFEN 10 MG TABLET PO SCH ×3 (05:00→21:25)
[2022-02-09 05:09] LABS: BASOPHILS % (AUTO) 0.3 %; EOSINOPHILS % (AUTO) 0.2 %; HGB - HEMOGLOBIN 8.3 g/dL (14.0-18.0); LYMPHOCYTES # (AUTO) 1.1 10^3/uL (1.5-3.5); LYMPHOCYTES % (AUTO) 8.8 %; MEAN CORPUSCULAR HEMOGLOBIN 36.4 pg (27.0-31.0); MEAN CORPUSCULAR HGB CONC 33.2 g/dL (32.0-36.0); MEAN CORPUSCULAR VOLUME 109.6 fL (80.0-94.0); MEAN PLATELET VOLUME 9.5 fL (7.4-11.4); MONOCYTES # (AUTO) 0.5 10^3/uL (0.0-1.0); MONOCYTES % (AUTO) 4.1 %; NEUTROPHILS # (AUTO) 10.8 10^3/uL (1.5-6.6); NEUTROPHILS % (AUTO) 85.7 %; PLT - PLATELET COUNT 51 10^3/uL (130-450); RED BLOOD COUNT 2.28 10^6/uL (4.70-6.10); RED CELL DISTRIBUTION WIDTH 15.2 % (12.0-15.0); WHITE BLOOD COUNT 12.6 x10^3/uL (4.8-10.8)
[2022-02-09 05:17] LABS: INR 1.8 (0.8-1.2); PT - PROTHROMBIN TIME 19.4 secs (9.9-12.6)
[2022-02-09 05:19] LABS: CALCIUM 8.1 mg/dL (8.5-10.3); CREATININE 2.3 mg/dL (0.6-1.2); POTASSIUM 5.2 mmol/L (3.5-5.0)
[2022-02-09] MEDS ORDERED: TAMSULOSIN 0.4 MG CAPSULE PO SCH (08:00)
[2022-02-09] MEDS: TAMSULOSIN 0.4 MG CAPSULE PO SCH ×2 (08:02→10:43)
--- NOTE | 2022-02-09 08:38 | PROVIDER PROGRESS NOTE ---
Assessment/Plan - Problem List (1) Gram-negative bacteremia Assessment/Plan: Blood cultures are showing growth of a gram-negative bacillus. The source is likely his cellulitis. Will admit the patient to inpatient status and treat with IV antibiotics. Will increase Rocephin dose due to his large BMI, discussed with pharmacy. This plan was discussed with the patient and he is agreeable. (2) Sepsis Assessment/Plan: He has elevated white count 11 at admission, today up to 12.6. He has elevated lactic acid level that was 4.9 and 4.4 overnight and elevated ESR and CRP. He has hypotension (diastolic blood pressures lower than 40). He has evidence of infection (cellulitis) and now has positive evidence of bacteremia. He will be admitted to inpatient status. Follow his lactic acid level, CRP, ESR and WBC. Treat the underlying gram-negative bacteremia and leg cellulitis, awaiting identification and sensitivities of the gram-negative bacteria to tailor antibio tics. He will receive 1 L of fluid then stop iv fluids due to anasarca. (3) Cellulitis Qualifiers: Site of cellulitis: extremity Site of cellulitis of extremity: lower extremity Laterality: right Qualified Code(s): L03.115 - Cellulitis of right lower limb Assessment/Plan: Compared to images that he showed me on his iPhone, the area of redness of thr R stuart is unchanged. He had benefit from getting Vicodin and does not want anything stronger than that he told me. Will treat with IV antibiotics, pain meds, elevation (4) Chronic renal failure, stage 3b Conclusion/Plan: Due to hepatorenal failure. Patient states that this stabilized over the last few weeks. His max creatinine was 3.8 at [facility] as far as he remembers. He was down to 2.3 at admission yesterday We will monitor carefully in the face of vancomycin. He will receive 1 L of fluid then stop iv fluids due to anasarca. Will resume his usual dosing of medications once pharmacy has verified the list. (5) Cirrhosis, non-alcoholic Conclusion/Plan: His meld score is 27 points or 19.6% mortality. He and his state that they are familiar with a meld score and that it was much worse when he was in the hospital. While they acknowledge that the overall prognosis is poor for him. That he is not going to do well in the next few months, they feel that he will outlive the predicted mortality that has been stated. They have been very hesitant to go to hospice because of their previous experience with hospice and the fact that they feel that he will be oversedated with morphine or Ativan.. Please see advance care planning conversation held under different note (6) Anasarca Conclusion/Plan: As stated above for cirrhosis. We will resume appropriate home medications when his list is reconciled. (7) Anemia Conclusion/Plan: He does not give a history of variceal bleeding. No recent change in the color of his stool. Has had chronic kidney disease for a while now he tells me. We will review [facility] records. Qualifiers: Anemia type: due to chronic kidney disease (8) Hyperkalemia Conclusion/Plan: Unclear if this is true hyperkalemia or lysis in his blood draw. We will look at records from [facility]. Recheck tomorrow morning. (9) Hypotension Conclusion/Plan: According to the discharge summary from [facility], he takes Midodrine. Therefore his hypotension may not be from sepsis but from his chronic condition. Will resume his midodrine 3 times daily with meals (10) Pre-diabetes Conclusion/Plan: According to the discharge summary, he has prediabetes. Will obtain A1c with morning labs. Will start a diabetic diet if needed, Nutrition has been asked to assist. (11) Morbid obesity, BMI 50-59 Conclusion/Plan: Requires 4 person assist at times to reposition in the bed. He states that he is ambulatory at home. When he is successfully discharged, will explore if he would be candidate for home health PT - Current Meds Current Meds: Current Medications Generic Name Dose Route Start Last Admin Trade Name Freq PRN Reason Stop Dose Admin Hydrocodone Bitart/Acetaminophen 0.5 - 1 tab 02/09/22 00:50 02/09/22 01:05 Hydrocod/Acetam 5/325 Mg Tablet PO 1 tab Q8HR PRN Administration Severe Pain Baclofen 10 mg 02/08/22 18:23 02/09/22 05:00 Baclofen 10 Mg Tablet PO 10 mg TID JULIENNE Administration Lactulose 10 gm 02/08/22 21:00 02/08/22 22:26 Lactulose 10 Gm /15 Ml Udc PO Not Given BID JULIENNE Sodium Chloride 10 ml 02/08/22 17:00 02/09/22 01:52 Sodium Chloride Flush 0.9% 10 Ml Syringe IVP Not Given 0100,0900,1700 JULIENNE Tamsulosin HCl 0.4 mg 02/09/22 08:00 02/09/22 08:02 Tamsulosin 0.4 Mg Capsule PO Not Given DAILY JULIENNE - Lab Result Fish Bone Diagrams: 02/09/22 05:02 02/09/22 05:02 - Additional Planning My Orders: My Active Orders 02/09/22 07:51 Spironolactone [Aldactone] 50 mg PO BID 02/09/22 08:00 Tamsulosin [Flomax] 0.4 mg PO DAILY 02/09/22 08:04 ESR- ERYTHROCYTE SEDIMENT RATE [HEME] Urgent 02/09/22 08:35 Admit [Admit \ Transfer \ Status] [RC] .ONCE Subjective - Subjective Patient Reports: Feeling Better (Pain is less severe, got some relief from Vicodin. Still feels weak. Leg redness is unchanged.) Objective Vital Signs: Vital Signs - 24 hr 02/08/22 02/08/22 02/08/22 13:08 13:13 15:13 Temperature 37.1 C 37.1 C 37.0 C Heart Rate 100 100 98 Heart Rate [ Brachial] Respiratory 22 22 22 Rate Blood Pressure 138/51 H 138/51 H 130/60 Blood Pressure [Right Brachial artery] O2 Saturation 99 99 100 02/08/22 02/08/22 02/08/22 16:30 21:05 23:41 Temperature 37.3 C 37.1 C 37.2 C Heart Rate Heart Rate [ 97 92 95 Brachial] Respiratory 20 20 18 Rate Blood Pressure Blood Pressure 132/40 H 111/41 L 117/34 L [Right Brachial artery] O2 Saturation 98 98 99 02/09/22 02/09/22 04:59 07:50 Temperature 36.5 C 36.6 C Heart Rate Heart Rate [ 85 82 Brachial] Respiratory 18 16 Rate Blood Pressure Blood Pressure 122/37 L 101/26 L [Right Brachial artery] O2 Saturation 98 97 Oxygen O2 Source Room air I&O (Last 24 Hrs): Intake and Output Totals x24h 02/07/22 02/08/22 02/09/22 23:59 23:59 23:59 Intake Total 1187 968.333 Output Total 250 Balance 937 968.333 General: Alert, Oriented x3, Other (very pale) HEENT: Mucous membr. moist/pink Neck: Supple, Other (Obese and cannot eval JVP.) Neuro: Alert, Non Focal Cardiovascular: Regular rate, No murmurs Respiratory: No respiratory distress, Breath sounds nml Abdomen: Normal bowel sounds, Soft, Other (Obese with pannus) Genitourinary: Other (scrotum edematous) Extremities: Other (4+ edema to groin. Redness, warmth and tenderness of Right stuart, and a few small round peggy of Lft ant stuart) - Results Results: Laboratory Results WBC 12.6 x10^3/uL (4.8-10.8) H 02/09/22 05:02 RBC 2.28 10^6/uL (4.70-6.10) L 02/09/22 05:02 Hgb 8.3 g/dL (14.0-18.0) L 02/09/22 05:02 Hct 25.0 % (42.0-52.0) L 02/09/22 05:02 MCV 109.6 fL (80.0-94.0) H 02/09/22 05:02 MCH 36.4 pg (27.0-31.0) H 02/09/22 05:02 MCHC 33.2 g/dL (32.0-36.0) 02/09/22 05:02 RDW 15.2 % (12.0-15.0) H 02/09/22 05:02 Plt Count 51 10^3/uL (130-450) L 02/09/22 05:02 MPV 9.5 fL (7.4-11.4) 02/09/22 05:02 Neut # (Auto) 10.8 10^3/uL (1.5-6.6) H 02/09/22 05:02 Lymph # (Auto) 1.1 10^3/uL (1.5-3.5) L 02/09/22 05:02 Mclean # (Auto) 0.5 10^3/uL (0.0-1.0) 02/09/22 05:02 Eos # (Auto) 0.0 10^3/uL (0.0-0.7) 02/09/22 05:02 Baso # (Auto) 0.0 10^3/uL (0.0-0.1) 02/09/22 05:02 Absolute Nucleated RBC 0.00 x10^3/uL 02/09/22 05:02 Nucleated RBC % 0.0 /100WBC 02/09/22 05:02 ESR 69 mm/Hr (0-20) H 02/08/22 14:02 PT 19.4 secs (9.9-12.6) H 02/09/22 05:02 INR 1.8 (0.8-1.2) H 02/09/22 05:02 Sodium 131 mmol/L (135-145) L 02/09/22 05:02 Potassium 5.2 mmol/L (3.5-5.0) H 02/09/22 05:02 Chloride 99 mmol/L (101-111) L 02/09/22 05:02 Carbon Dioxide 22 mmol/L (21-32) 02/09/22 05:02 Anion Gap 10.0 (6-13) 02/09/22 05:02 BUN 44 mg/dL (6-20) H 02/09/22 05:02 Creatinine 2.3 mg/dL (0.6-1.2) H 02/09/22 05:02 Estimated GFR (MDRD) 28 (>89) L 02/09/22 05:02 Glucose 159 mg/dL (70-100) H 02/09/22 05:02 Lactic Acid 2.9 mmol/L (0.5-2.2) H 02/09/22 08:04 Calcium 8.1 mg/dL (8.5-10.3) L 02/09/22 05:02 Total Bilirubin 5.6 mg/dL (0.2-1.0) H 02/08/22 14:02 AST 61 IU/L (10-42) H 02/08/22 14:02 ALT 33 IU/L (10-60) 02/08/22 14:02 Alkaline Phosphatase 169 IU/L (42-121) H 02/08/22 14:02 Ammonia 15.5 umol/L (7-35) 02/09/22 08:04 C-Reactive Protein 13.4 mg/dL (0-1.0) H 02/09/22 08:04 Total Protein 7.2 g/dL (6.7-8.2) 02/08/22 14:02 Albumin 2.4 g/dL (3.2-5.5) L 02/08/22 14:02 Globulin 4.8 g/dL (2.1-4.2) H 02/08/22 14:02 Albumin/Globulin Ratio 0.5 (1.0-2.2) L 02/08/22 14:02 Lipase 53 U/L (22-51) H 02/08/22 14:02 Urine Color DARK YELLOW 02/08/22 14:48 Urine Clarity CLEAR (CLEAR) 02/08/22 14:48 Urine pH 5.0 PH (5.0-7.5) 02/08/22 14:48 Ur Specific [place] 1.020 (1.002-1.030) 02/08/22 14:48 Urine Protein NEGATIVE mg/dL (NEGATIVE) 02/08/22 14:48 Urine Glucose (UA) NEGATIVE mg/dL (NEGATIVE) 02/08/22 14:48 Urine Ketones NEGATIVE mg/dL (NEGATIVE) 02/08/22 14:48 Urine Occult Blood NEGATIVE (NEGATIVE) 02/08/22 14:48 Urine Nitrite NEGATIVE (NEGATIVE) 02/08/22 14:48 Urine Bilirubin NEGATIVE (NEGATIVE) 02/08/22 14:48 Urine Urobilinogen 0.2 (NORMAL) E.U./dL (NORMAL) 02/08/22 14:48 Ur Leukocyte Esterase NEGATIVE (NEGATIVE) 02/08/22 14:48 Ur Microscopic Review NOT INDICATED 02/08/22 14:48 Urine Culture Comments NOT INDICATED 02/08/22 14:48 Nasal Adenovirus (PCR) NOT DETECTED 02/08/22 15:23 Nasal B. parapertussis DNA (PCR) NOT DETECTED 02/08/22 15:23 Nasal Coronavir 229E PCR NOT DETECTED 02/08/22 15:23 Nasal Coronavir HKU1 PCR NOT DETECTED 02/08/22 15:23 Nasal Coronavir NL63 PCR NOT DETECTED 02/08/22 15:23 Nasal Coronavir OC43 PCR NOT DETECTED 02/08/22 15:23 Nasal Enterovir/Rhinovir PCR NOT DETECTED 02/08/22 15:23 Nasal Influenza B PCR NOT DETECTED 02/08/22 15:23 Nasal Influenza A PCR NOT DETECTED 02/08/22 15:23 Nasal Parainfluen 1 PCR NOT DETECTED 02/08/22 15:23 Nasal Parainfluen 2 PCR NOT DETECTED 02/08/22 15:23 Nasal Parainfluen 3 PCR NOT DETECTED 02/08/22 15:23 Nasal Parainfluen 4 PCR NOT DETECTED 02/08/22 15:23 Nasal RSV (PCR) NOT DETECTED 02/08/22 15:23 Nasal B.pertussis DNA PCR NOT DETECTED 02/08/22 15:23 Nasal C.pneumoniae (PCR) NOT DETECTED 02/08/22 15:23 Hilton Human Metapneumo PCR NOT DETECTED 02/08/22 15:23 Nasal M.pneumoniae (PCR) NOT DETECTED 02/08/22 15:23 Nasal SARS-CoV-2 (PCR) NOT DETECTED 02/08/22 15:23
[2022-02-09] MEDS: SPIRONOLACTONE 25 MG TABLET PO SCH ×2 (08:44→21:25)
[2022-02-09] MEDS ORDERED: cefTRIAXone 2 GM in SODIUM CHLORIDE 0.9% MINIBAG 100 ML IV SCH (09:00)
[2022-02-09] MEDS: LACTULOSE 10 GM /15 ML UDC PO SCH ×2 (10:37→21:24)
[2022-02-09] MEDS: MIDODRINE 2.5 MG TABLET PO SCH ×2 (12:11→16:53)
[2022-02-09] MEDS: HYDROcod/ACETAM 7.5 MG/325 MG TABLET PO PRN ×2 (12:11→19:11)
[2022-02-10] MEDS: HYDROcod/ACETAM 7.5 MG/325 MG TABLET PO PRN ×4 (00:07→15:53)
[2022-02-10] MEDS: SODIUM CHLORIDE FLUSH 0.9% 10 ML SYRINGE IVP SCH ×3 (00:09→17:34)
[2022-02-10] MEDS: BACLOFEN 10 MG TABLET PO SCH ×3 (04:53→21:50)
[2022-02-10 05:15] LABS: BASOPHILS # (AUTO) 0.1 10^3/uL (0.0-0.1); BASOPHILS % (AUTO) 0.5 %; EOSINOPHILS # (AUTO) 0.5 10^3/uL (0.0-0.7); EOSINOPHILS % (AUTO) 4.8 %; HGB - HEMOGLOBIN 7.9 g/dL (14.0-18.0); LYMPHOCYTES # (AUTO) 1.3 10^3/uL (1.5-3.5); LYMPHOCYTES % (AUTO) 12.6 %; MEAN CORPUSCULAR HEMOGLOBIN 35.9 pg (27.0-31.0); MEAN CORPUSCULAR HGB CONC 32.9 g/dL (32.0-36.0); MEAN CORPUSCULAR VOLUME 109.1 fL (80.0-94.0); MEAN PLATELET VOLUME 10.4 fL (7.4-11.4); MONOCYTES % (AUTO) 9.7 %; NEUTROPHILS # (AUTO) 7.5 10^3/uL (1.5-6.6); NEUTROPHILS % (AUTO) 71.7 %; PLT - PLATELET COUNT 56 10^3/uL (130-450); RED CELL DISTRIBUTION WIDTH 14.6 % (12.0-15.0); WHITE BLOOD COUNT 10.5 x10^3/uL (4.8-10.8)
[2022-02-10 05:31] LABS: CREATININE 2.1 mg/dL (0.6-1.2); POTASSIUM 5.1 mmol/L (3.5-5.0)
--- NOTE | 2022-02-10 07:45 | PROVIDER PROGRESS NOTE ---
Assessment/Plan - Problem List (1) Gram-negative bacteremia Assessment/Plan: Blood cultures are showing growth of a gram-negative bacillus. The bacterial identification is still pending. The source is likely his cellulitis. He was admitted from Observation to inpatient status yesterday and treatment continued with IV antibiotics. We increased the Rocephin dose from 2 gm daily to 3 gm daily due to his large BMI, and presence of bacteremia, discussed this with pharmacy. We will draw a set of blood cultures today to assure they are negative now that he has been on IV antibiotics. Await culture identification and sensitivity. I spoke to at bedside today with pt, about the entire plan. (2) Sepsis Assessment/Plan: This is improving. He had elevated white count 11>>12.6. He was hypotensive. He had elevated lactic acid level that was 4.9>> 4.4 and elevated ESR and CRP. He has evidence of infection (cellulitis) and evidence of bacteremia. Following his lactic acid level, CRP, ESR and WBC. Treating the underlying gram-negative bacteremia and leg cellulitis, awaiting identification and sensitivities of the gram-negative bacteria to tailor antibiotics. He received 1.5 L of fluid then iv fluids stopped due to anasarca. (3) Cellulitis Qualifiers: Site of cellulitis: extremity Site of cellulitis of extremity: lower extremity Laterality: right Qualified Code(s): L03.115 - Cellulitis of right lower limb Assessment/Plan: Compared to images of his R leg that he showed me on his iPhone yesterday, the area of redness of the R stuart is still unchanged. He had benefit in pain relief from getting Vicodin and does not want anything stronger than that he told me. Will treat with IV antibiotics, pain meds, elevation. His pain is considerable and W/U for DVT was considered, but he is too tender to have ultrasound and creat too elevated for having a venogram. Will consider a wound consult for recommendations about the unopened blisters at center of wound. Will order OOB to chair 1-2 times/day. (4) Chronic renal failure, stage 3b Conclusion/Plan: Due to hepatorenal failure. Patient states that this stabilized over the last few weeks. His max creatinine was 3.8 at [facility] as far as he remembers. He was down to 2.3 at admission. Creat improved to 2.0 today, after he got 1.5L of saline, which was then stopped due to anasarca. But his BUN is rising today. Will hold the Spironolactone 50 bid dose, since he has pre-renal increase in BUN/craet ratio today. Avoid nephrotoxins. Follow BMP daily (5) Cirrhosis, non-alcoholic Conclusion/Plan: His meld score is 27 points or 19.6% mortality. He and his state that they are familiar with a meld score and that it was much worse when he was in the hospital. While they acknowledge that the overall prognosis is poor for him. That he is not going to do well in the next few months, they feel that he will outlive the predicted mortality that has been stated. They have been very hesitant to go to hospice because of their previous experience with hospice and the fact that they feel that he will be oversedated with morphine or Ativan. Please see advance care planning conversation held under different note. Will follow LFTs intermittently, especially with worsening icterus noted on exam. (6) Anasarca Conclusion/Plan: As stated above, from cirrhosis and CKD. We will resume appropriate home medications when his list is reconciled, but will hold the Spironolactone 50 bid dose, since he has pre-renal increase in BUN/creat ratio today. (7) Anemia Conclusion/Plan: Hgb dropped after he received iv fluids: 9.4>> 8.3>> 7.9 today and he is very pale. He does not give a history of variceal bleeding. No recent change in the color of his stool. Has had chronic kidney disease for a while now he tells me. Follow CBC daily. Would transfuse if Hgb <7 Qualifiers: Anemia type: due to chronic kidney disease (8) Hyperkalemia Conclusion/Plan: Unclear if this is true hyperkalemia from CKD or lysis in his blood draw. Follow BMP daily. No Spironolactone planned today which does cause some potassium retention (9) Hypotension Conclusion/Plan: According to the discharge summary from [facility], he takes Midodrine. Therefore his hypotension may not have been from sepsis but from this chronic condition. We resumed his Midodrine 3 times daily with meals, and BP has improved to 120- 130 systolic. Will order OOB to chair 1-2 times/day. (10) Pre-diabetes Conclusion/Plan: According to the discharge summary from , he has prediabetes. His A1c result is still pending from today. Will start a diabetic diet if needed, Nutrition has been asked to assist. (11) Morbid obesity, BMI 50-59 Conclusion/Plan: Requires 4 person assist at times to reposition in the bed. He states that he is ambulatory at home. Will order PT and OT evaluations today, now that BP is better, and see if he would be candidate for home health PT. Will order OOB to chair 1-2 times/day. - Current Meds Current Meds: Current Medications Generic Name Dose Route Start Last Admin Trade Name Freq PRN Reason Stop Dose Admin Hydrocodone Bitart/Acetaminophen 1 tab 02/09/22 08:38 02/10/22 04:53 Hydrocod/Acetam 7.5 Mg/325 Mg Tablet PO 1 tab Q4HR PRN Administration PAIN Baclofen 10 mg 02/08/22 18:23 02/10/22 04:53 Baclofen 10 Mg Tablet PO 10 mg TID JULIENNE Administration Lactulose 10 gm 02/08/22 21:00 02/09/22 21:24 Lactulose 10 Gm /15 Ml Udc PO Not Given BID JULIENNE Midodrine 5 mg 02/09/22 12:00 02/09/22 16:53 Midodrine 2.5 Mg Tablet PO 5 mg TIDWM JULIENNE Administration Sodium Chloride 10 ml 02/08/22 17:00 02/10/22 00:09 Sodium Chloride Flush 0.9% 10 Ml Syringe IVP 10 ml 0100,0900,1700 JULIENNE Administration Tamsulosin HCl 0.4 mg 02/09/22 08:00 02/09/22 10:43 Tamsulosin 0.4 Mg Capsule PO Not Given DAILY JULIENNE - Lab Result Fish Bone Diagrams: 02/10/22 04:42 02/10/22 04:42 - Additional Planning My Orders: My Active Orders 02/09/22 08:00 Tamsulosin [Flomax] 0.4 mg PO DAILY 02/09/22 08:38 HYDROcodone/ACET 7.5/325 [[place] 7.5/325] 1 tab PO Q4HR PRN 02/09/22 10:33 Miscellaenous Nursing Order [RC] QSHIFT 02/09/22 12:00 Midodrine [ProAmatine] 5 mg PO TIDWM 02/10/22 04:42 HEMOGLOBIN A1c% [CHEM] DAILYLAB Subjective - Subjective Patient Reports: Feeling Better (Less leg pain on Vicodin.) Nursing Reports: Other (Line of demarcation of cellulitis has decreased) Objective Vital Signs: Vital Signs - 24 hr 02/09/22 02/09/22 02/09/22 07:50 12:31 14:34 Temperature 36.6 C 36.4 C L Heart Rate [ 82 82 Brachial] Respiratory 16 20 18 Rate Blood Pressure [Left Brachial artery] Blood Pressure 101/26 L 127/36 L [Right Brachial artery] O2 Saturation 97 98 02/09/22 02/09/22 02/09/22 16:23 18:00 21:00 Temperature 36.6 C 36.4 C L Heart Rate [ 83 80 Brachial] Respiratory 20 18 Rate Blood Pressure [Left Brachial artery] Blood Pressure 127/37 L 125/35 L 168/125 H [Right Brachial artery] O2 Saturation 99 98 02/10/22 02/10/22 02/10/22 00:05 03:00 06:00 Temperature 36.7 C 36.6 C 36.5 C Heart Rate [ 77 81 82 Brachial] Respiratory 18 16 16 Rate Blood Pressure 109/41 L 114/42 L [Left Brachial artery] Blood Pressure 119/44 L [Right Brachial artery] O2 Saturation 96 97 97 Oxygen O2 Source Room air I&O (Last 24 Hrs): Intake and Output Totals x24h 02/08/22 02/09/22 02/10/22 23:59 23:59 23:59 Intake Total 1187 2278.333 Output Total 250 350 Balance 937 1928.333 General: Alert, Other (Sleepy (after Vicodin)) HEENT: Other (icteric) Neck: Supple, Other (Obese and cannot eval JVP) Neuro: Alert, Non Focal Cardiovascular: Regular rate Respiratory: No respiratory distress Abdomen: Soft, Other (Obese with pannus) Extremities: Other (2+ edema to knees bilat, redness of R stuart decreased at top margin, chlorine cell tender) - Results Results: Laboratory Results WBC 10.5 x10^3/uL (4.8-10.8) 02/10/22 04:42 RBC 2.20 10^6/uL (4.70-6.10) L 02/10/22 04:42 Hgb 7.9 g/dL (14.0-18.0) L 02/10/22 04:42 Hct 24.0 % (42.0-52.0) L 02/10/22 04:42 MCV 109.1 fL (80.0-94.0) H 02/10/22 04:42 MCH 35.9 pg (27.0-31.0) H 02/10/22 04:42 MCHC 32.9 g/dL (32.0-36.0) 02/10/22 04:42 RDW 14.6 % (12.0-15.0) 02/10/22 04:42 Plt Count 56 10^3/uL (130-450) L 02/10/22 04:42 MPV 10.4 fL (7.4-11.4) 02/10/22 04:42 Neut # (Auto) 7.5 10^3/uL (1.5-6.6) H 02/10/22 04:42 Lymph # (Auto) 1.3 10^3/uL (1.5-3.5) L 02/10/22 04:42 [place] # (Auto) 1.0 10^3/uL (0.0-1.0) 02/10/22 04:42 Eos # (Auto) 0.5 10^3/uL (0.0-0.7) 02/10/22 04:42 Baso # (Auto) 0.1 10^3/uL (0.0-0.1) 02/10/22 04:42 Absolute Nucleated RBC 0.00 x10^3/uL 02/10/22 04:42 Nucleated RBC % 0.0 /100WBC 02/10/22 04:42 ESR 60 mm/Hr (0-20) H 02/09/22 08:04 PT 19.4 secs (9.9-12.6) H 02/09/22 05:02 INR 1.8 (0.8-1.2) H 02/09/22 05:02 Sodium 133 mmol/L (135-145) L 02/10/22 04:42 Potassium 5.1 mmol/L (3.5-5.0) H 02/10/22 04:42 Chloride 102 mmol/L (101-111) 02/10/22 04:42 Carbon Dioxide 26 mmol/L (21-32) 02/10/22 04:42 Anion Gap 5.0 (6-13) L 02/10/22 04:42 BUN 50 mg/dL (6-20) H 02/10/22 04:42 Creatinine 2.1 mg/dL (0.6-1.2) H 02/10/22 04:42 Estimated GFR (MDRD) 31 (>89) L 02/10/22 04:42 Glucose 108 mg/dL (70-100) H 02/10/22 04:42 Lactic Acid 2.9 mmol/L (0.5-2.2) H 02/09/22 08:04 Calcium 8.0 mg/dL (8.5-10.3) L 02/10/22 04:42 Total Bilirubin 5.6 mg/dL (0.2-1.0) H 02/08/22 14:02 AST 61 IU/L (10-42) H 02/08/22 14:02 ALT 33 IU/L (10-60) 02/08/22 14:02 Alkaline Phosphatase 169 IU/L (42-121) H 02/08/22 14:02 Ammonia 15.5 umol/L (7-35) 02/09/22 08:04 C-Reactive Protein 13.4 mg/dL (0-1.0) H 02/09/22 08:04 Total Protein 7.2 g/dL (6.7-8.2) 02/08/22 14:02 Albumin 2.4 g/dL (3.2-5.5) L 02/08/22 14:02 Globulin 4.8 g/dL (2.1-4.2) H 02/08/22 14:02 Albumin/Globulin Ratio 0.5 (1.0-2.2) L 02/08/22 14:02 Lipase 53 U/L (22-51) H 02/08/22 14:02 Vitamin B12 891 pg/mL (180-914) 02/10/22 04:42 Folate ng/mL (5.90 - >24.8) 02/10/22 04:42 Urine Color DARK YELLOW 02/08/22 14:48 Urine Clarity CLEAR (CLEAR) 02/08/22 14:48 Urine pH 5.0 PH (5.0-7.5) 02/08/22 14:48 Ur Specific [place] 1.020 (1.002-1.030) 02/08/22 14:48 Urine Protein NEGATIVE mg/dL (NEGATIVE) 02/08/22 14:48 Urine Glucose (UA) NEGATIVE mg/dL (NEGATIVE) 02/08/22 14:48 Urine Ketones NEGATIVE mg/dL (NEGATIVE) 02/08/22 14:48 Urine Occult Blood NEGATIVE (NEGATIVE) 02/08/22 14:48 Urine Nitrite NEGATIVE (NEGATIVE) 02/08/22 14:48 Urine Bilirubin NEGATIVE (NEGATIVE) 02/08/22 14:48 Urine Urobilinogen 0.2 (NORMAL) E.U./dL (NORMAL) 02/08/22 14:48 Ur Leukocyte Esterase NEGATIVE (NEGATIVE) 02/08/22 14:48 Ur Microscopic Review NOT INDICATED 02/08/22 14:48 Urine Culture Comments NOT INDICATED 02/08/22 14:48 Nasal Adenovirus (PCR) NOT DETECTED 02/08/22 15:23 Nasal B. parapertussis DNA (PCR) NOT DETECTED 02/08/22 15:23 Nasal Coronavir 229E PCR NOT DETECTED 02/08/22 15:23 Nasal Coronavir HKU1 PCR NOT DETECTED 02/08/22 15:23 Nasal Coronavir NL63 PCR NOT DETECTED 02/08/22 15:23 Nasal Coronavir OC43 PCR NOT DETECTED 02/08/22 15:23 Nasal Enterovir/Rhinovir PCR NOT DETECTED 02/08/22 15:23 Nasal Influenza B PCR NOT DETECTED 02/08/22 15:23 Nasal Influenza A PCR NOT DETECTED 02/08/22 15:23 Nasal Parainfluen 1 PCR NOT DETECTED 02/08/22 15:23 Nasal Parainfluen 2 PCR NOT DETECTED 02/08/22 15:23 Nasal Parainfluen 3 PCR NOT DETECTED 02/08/22 15:23 Nasal Parainfluen 4 PCR NOT DETECTED 02/08/22 15:23 Nasal RSV (PCR) NOT DETECTED 02/08/22 15:23 Nasal B.pertussis DNA PCR NOT DETECTED 02/08/22 15:23 Nasal C.pneumoniae (PCR) NOT DETECTED 02/08/22 15:23 [place] Human Metapneumo PCR NOT DETECTED 02/08/22 15:23 Nasal M.pneumoniae (PCR) NOT DETECTED 02/08/22 15:23 Nasal SARS-CoV-2 (PCR) NOT DETECTED 02/08/22 15:23
[2022-02-10] MEDS ORDERED: SODIUM CHLORIDE 0.9% IV SCH ×2 (09:00→11:00)
[2022-02-10] MEDS ORDERED: CEFTRIAXONE IV SCH ×2 (09:00→11:00)
[2022-02-10] MEDS: MIDODRINE 2.5 MG TABLET PO SCH ×3 (10:13→17:34)
[2022-02-10] MEDS: TAMSULOSIN 0.4 MG CAPSULE PO SCH ×3 (10:15→21:50)
[2022-02-10] MEDS: LACTULOSE 10 GM /15 ML UDC PO SCH ×2 (10:15→21:49)
[2022-02-10 13:31] LABS: ESTIMATED AVERAGE GLUCOSE 91 mg/dL (70-100); HEMOGLOBIN A1c% 4.8 % (4.27-6.07)
[2022-02-10] MEDS: ONDANSETRON 4 MG/2 ML VIAL IVP PRN (18:12)
[2022-02-10 19:36] LABS: FOLATE 5.36 ng/mL (5.90 - >24.8)
[2022-02-11] MEDS: HYDROcod/ACETAM 7.5 MG/325 MG TABLET PO PRN ×5 (01:42→19:07)
[2022-02-11] MEDS: SODIUM CHLORIDE FLUSH 0.9% 10 ML SYRINGE IVP SCH ×3 (01:43→17:08)
[2022-02-11 04:53] LABS: BASOPHILS % (AUTO) 0.3 %; EOSINOPHILS # (AUTO) 0.4 10^3/uL (0.0-0.7); EOSINOPHILS % (AUTO) 5.7 %; HCT - HEMATOCRIT 23.6 % (42.0-52.0); HGB - HEMOGLOBIN 7.9 g/dL (14.0-18.0); LYMPHOCYTES # (AUTO) 1.1 10^3/uL (1.5-3.5); LYMPHOCYTES % (AUTO) 14.4 %; MEAN CORPUSCULAR HEMOGLOBIN 36.6 pg (27.0-31.0); MEAN CORPUSCULAR HGB CONC 33.5 g/dL (32.0-36.0); MEAN CORPUSCULAR VOLUME 109.3 fL (80.0-94.0); MEAN PLATELET VOLUME 10.3 fL (7.4-11.4); MONOCYTES # (AUTO) 0.6 10^3/uL (0.0-1.0); MONOCYTES % (AUTO) 7.9 %; NEUTROPHILS # (AUTO) 5.3 10^3/uL (1.5-6.6); NEUTROPHILS % (AUTO) 70.9 %; PLT - PLATELET COUNT 51 10^3/uL (130-450); RED BLOOD COUNT 2.16 10^6/uL (4.70-6.10); RED CELL DISTRIBUTION WIDTH 14.6 % (12.0-15.0); WHITE BLOOD COUNT 7.5 x10^3/uL (4.8-10.8)
[2022-02-11 05:15] LABS: CALCIUM 7.7 mg/dL (8.5-10.3); POTASSIUM 5.1 mmol/L (3.5-5.0)
[2022-02-11] MEDS: BACLOFEN 10 MG TABLET PO SCH ×3 (05:54→20:41)
[2022-02-11] MEDS: MIDODRINE 2.5 MG TABLET PO SCH ×3 (08:40→17:08)
[2022-02-11] MEDS: PRENATAL VITAMIN TABLET PO SCH (08:40)
[2022-02-11] MEDS ORDERED: CEFTRIAXONE IV SCH ×2 (08:50→11:00)
[2022-02-11] MEDS ORDERED: SODIUM CHLORIDE 0.9% IV SCH ×2 (08:50→11:00)
[2022-02-11] MEDS: LACTULOSE 10 GM /15 ML UDC PO SCH ×3 (08:52→20:41)
--- NOTE | 2022-02-11 12:08 | PROVIDER PROGRESS NOTE ---
Assessment/Plan - Problem List (1) Gram-negative bacteremia Assessment/Plan: Blood cultures are growing Hemophilus. The bacterial sensitivities are still pending. The source is likely his cellulitis. Continued with IV antibiotics. We increased the Rocephin dose from 2 gm daily to 3 gm daily due to his large BMI, and presence of bacteremia, discussed this with pharmacy. We will draw a set of blood cultures today to assure they are negative now that he has been on IV antibiotics. Await culture sensitivity results I spoke to at bedside today with pt, about the entire plan again today. (3) Cellulitis Qualifiers: Site of cellulitis: extremity Site of cellulitis of extremity: lower extremity Laterality: right Qualified Code(s): L03.115 - Cellulitis of right lower limb Assessment/Plan: Compared to images of his R leg that he showed me on his iPhone, the area of redness of the R stuart is smaller, but more bright red today and filling machine tender. He gets some benefit in pain relief from Vicodin and does not want anything stronger than that he told me, after Morphine was offered today. Continue to treat with IV antibiotics, pain meds, elevation. Today we will order a W/U for DVT because to the pain out of proportion to the redness. Today will also get a Gen Surg wound consult for recommendations about the unopened blisters at center of wound. Both of these plans were discussed with pt and and they are agreeable. We have ordered OOB to chair 1-2 times/day. PT has started to work with the pt. (4) Chronic renal failure, stage 3b Conclusion/Plan: Due to hepatorenal failure. Patient states that this stabilized over the last few weeks. His max creatinine was 3.8 at [facility] as far as he remembers. He was down to 2.3 at admission. Creat improved to 2.0 today, after he got 1.5L of saline, which was then stopped due to anasarca. But his BUN is still rising today, despite not being on his home doses of Torsemide or Spironolactone Will continue to hold the Torsemide and Spironolactone doses, since he has pre- renal increase in BUN/craet ratio today. This was discussed with pt and today. Avoid nephrotoxins. Follow BMP daily (5) Cirrhosis, non-alcoholic Conclusion/Plan: His meld score is 27 points or 19.6% mortality. He and his state that they are familiar with a meld score, they acknowledge that the overall prognosis is poor, they feel that he will outlive the predicted mortality that was predicted. (They have been very hesitant to go to Hospice because of their previous experience with Hospice and the fact that they feel that he will be oversedated with morphine or Ativan). He has more icterus the past 2 days And he has been more sleepy for the last 2 days. We presumed it was from getting Vicodin. His RN reported to me today that he has been refusing his usual home doses of lactulose. He said that he is in too much pain in the R leg to get up to the bedside commode to have a bowel movement, therefore is refusing lactulose. Will follow Ammonia level Will follow LFTs intermittently, especially with worsening icterus noted on exam. I discussed with him, and present, the importance of treating his cirrhosis with the Lactulose and he agreed to no longer refuse it. (6) Anasarca Conclusion/Plan: As stated above, from cirrhosis and CKD. We will resume Torsemide and Spironolactone when appropriate, since he has worsened pre-renal increase in BUN/creat ratio (7) Anemia Conclusion/Plan: Hgb dropped after he received iv fluids: 9.4>> 8.3>> and he is very pale. He does not give a history of variceal bleeding. No recent change in the color of his stool. Has had chronic kidney disease for a while. Follow CBC daily. Would transfuse if Hgb <7 Qualifiers: Anemia type: due to chronic kidney disease (8) Hyperkalemia Conclusion/Plan: Likely from CKD Follow BMP daily. No Torsemide or Spironolactone planned yet (9) Hypotension Conclusion/Plan: According to the discharge summary from [facility], he takes Midodrine. Therefore his hypotension may not have been from sepsis but from this chronic condition. We resumed his Midodrine 3 times daily with meals, and BP has improved to 120 systolic. We ordered OOB to chair 1-2 times/day. (10) Morbid obesity, BMI 50-59 Conclusion/Plan: Requires 4 person assist at times to reposition in the bed. He states that he is ambulatory at home. Will order PT and OT evaluations today, now that BP is better, and see if he would be candidate for home health PT. Will order OOB to chair 1-2 times/day. (11) Sepsis Assessment/Plan: Resolved, WBC is normal now He had elevated white count 11>>12.6. He was hypotensive. He had elevated lactic acid level that was 4.9>> 4.4 and elevated ESR and CRP. He has evidence of infection (cellulitis) and evidence of bacteremia. Treating the bacteremia and leg cellulitis He received 1.5 L of fluid then iv fluids stopped due to anasarca. (12) Pre-diabetes Conclusion/Plan: This is incorrect. According to the discharge summary from , he has prediabetes. We checked an A1c and his was 4.8 - Current Meds Current Meds: Current Medications Generic Name Dose Route Start Last Admin Trade Name Freq PRN Reason Stop Dose Admin Hydrocodone Bitart/Acetaminophen 1 tab 02/09/22 08:38 02/11/22 10:34 Hydrocod/Acetam 7.5 Mg/325 Mg Tablet PO 1 tab Q4HR PRN Administration PAIN Baclofen 10 mg 02/08/22 18:23 02/11/22 05:54 Baclofen 10 Mg Tablet PO 10 mg TID JULIENNE Administration Ceftriaxone Sodium 3 gm/ 100 mls @ 200 mls/hr 02/11/22 11:00 02/11/22 11:34 Sodium Chloride IV Infused Q24H JULIENNE Infusion Lactulose 10 gm 02/08/22 21:00 02/11/22 08:52 Lactulose 10 Gm /15 Ml Udc PO Not Given BID JULIENNE Midodrine 5 mg 02/09/22 12:00 02/11/22 08:40 Midodrine 2.5 Mg Tablet PO 5 mg TIDWM JULIENNE Administration Ondansetron HCl 4 mg 02/08/22 14:57 02/10/22 18:12 Ondansetron 4 Mg/2 Ml Vial IVP 4 mg Q6HR PRN Administration Nausea / Vomiting Multivit/Folic Acid/Iron 1 tab 02/11/22 09:00 02/11/22 08:40 Vitamin Tablet PO 1 tab DAILYWM JULIENNE Administration Sodium Chloride 10 ml 02/08/22 17:00 02/11/22 08:46 Sodium Chloride Flush 0.9% 10 Ml Syringe IVP 10 ml 0100,0900,1700 JULIENNE Administration Tamsulosin HCl 0.4 mg 02/10/22 19:08 02/10/22 21:50 Tamsulosin 0.4 Mg Capsule PO Not Given QPM JULIENNE - Lab Result Fish Bone Diagrams: 02/11/22 04:26 02/11/22 04:26 - Additional Planning My Orders: My Active Orders 02/10/22 11:48 Miscellaenous Nursing Order [RC] QSHIFT 02/10/22 11:49 Elevate Extremity [RC] PRN 02/10/22 19:08 Straight Catheter Insertion [RC] PRN Tamsulosin [Flomax] 0.4 mg PO QPM 02/11/22 05:00 AMMONIA [CHEM] Urgent 02/11/22 09:00 Vitamin [Trinatal Rx 1] 1 tab PO DAILYWM 02/11/22 11:56 Daily Weight [RC] 0600 02/11/22 Dinner DIET [Regular Diet] [DIET] 02/12/22 05:00 CBC - COMP BLD CT W/AUTO DIFF [HEME] DAILYLAB CMP [COMPREHENSIVE METABOLIC PANEL] [CHEM] DAILYLAB 02/13/22 05:00 CBC - COMP BLD CT W/AUTO DIFF [HEME] DAILYLAB 02/14/22 05:00 CBC - COMP BLD CT W/AUTO DIFF [HEME] DAILYLAB Subjective - Subjective Patient Reports: Pain (R thigh and R stuart are painful now) Nursing Reports: Other (He has refused all his Lactulose doses since admission, because it causes BMs/diarrhea and his R leg is too painful to move to get OOB and onto a bedside commode for having a BM) Objective Vital Signs: Vital Signs - 24 hr 02/10/22 02/10/22 02/10/22 12:19 16:00 20:15 Temperature 36.6 C 36.9 C 36.5 C Heart Rate [ 81 81 82 Brachial] Respiratory 18 16 18 Rate Blood Pressure 117/30 L 120/42 L 119/44 L [Right Brachial artery] O2 Saturation 97 97 97 02/11/22 02/11/22 02/11/22 00:04 04:27 08:03 Temperature 36.4 C L 36.4 C L 36.4 C L Heart Rate [ 82 88 74 Brachial] Respiratory 14 16 18 Rate Blood Pressure 118/33 L 109/37 L 88/22 L [Right Brachial artery] O2 Saturation 96 97 Oxygen O2 Source Room air I&O (Last 24 Hrs): Intake and Output Totals x24h 02/09/22 02/10/22 02/11/22 23:59 23:59 23:59 Intake Total 2278.333 1090 100 Output Total 350 480 900 Balance 1928.333 610 -800 General: Alert, Other (Lethargic. Icteric skin) HEENT: Mucous membr. moist/pink, Other (Sclerae icteric) Neck: Supple, Other (Cannot eval JVP due to morbid obesity) Neuro: Alert, Non Focal, Other (No asterixis, is oriented x3) Cardiovascular: Regular rate Respiratory: No respiratory distress Abdomen: Soft, No tenderness, Other (Obese with a pannus) Extremities: Other (1+ edema of both legs to knees, R stuart red area has decreased lower, but still warm and tender, R ant stuart blisters abd verroucus changes, small red areas of L ant stuart.) - Results Results: Laboratory Results WBC 7.5 x10^3/uL (4.8-10.8) 02/11/22 04:26 RBC 2.16 10^6/uL (4.70-6.10) L 02/11/22 04:26 Hgb 7.9 g/dL (14.0-18.0) L 02/11/22 04:26 Hct 23.6 % (42.0-52.0) L 02/11/22 04:26 MCV 109.3 fL (80.0-94.0) H 02/11/22 04:26 MCH 36.6 pg (27.0-31.0) H 02/11/22 04:26 MCHC 33.5 g/dL (32.0-36.0) 02/11/22 04:26 RDW 14.6 % (12.0-15.0) 02/11/22 04:26 Plt Count 51 10^3/uL (130-450) L 02/11/22 04:26 MPV 10.3 fL (7.4-11.4) 02/11/22 04:26 Neut # (Auto) 5.3 10^3/uL (1.5-6.6) 02/11/22 04:26 Lymph # (Auto) 1.1 10^3/uL (1.5-3.5) L 02/11/22 04:26 [place] # (Auto) 0.6 10^3/uL (0.0-1.0) 02/11/22 04:26 Eos # (Auto) 0.4 10^3/uL (0.0-0.7) 02/11/22 04:26 Baso # (Auto) 0.0 10^3/uL (0.0-0.1) 02/11/22 04:26 Absolute Nucleated RBC 0.00 x10^3/uL 02/11/22 04:26 Nucleated RBC % 0.0 /100WBC 02/11/22 04:26 ESR 60 mm/Hr (0-20) H 02/09/22 08:04 PT 19.4 secs (9.9-12.6) H 02/09/22 05:02 INR 1.8 (0.8-1.2) H 02/09/22 05:02 Sodium 130 mmol/L (135-145) L 02/11/22 04:26 Potassium 5.1 mmol/L (3.5-5.0) H 02/11/22 04:26 Chloride 102 mmol/L (101-111) 02/11/22 04:26 Carbon Dioxide 27 mmol/L (21-32) 02/11/22 04:26 Anion Gap 1.0 (6-13) L 02/11/22 04:26 BUN 54 mg/dL (6-20) H 02/11/22 04:26 Creatinine 2.0 mg/dL (0.6-1.2) H 02/11/22 04:26 Estimated GFR (MDRD) 33 (>89) L 02/11/22 04:26 Glucose 150 mg/dL (70-100) H 02/11/22 04:26 Estimat Average Glucose 91 mg/dL (70-100) 02/10/22 04:42 Hemoglobin A1c % 4.8 % (4.27-6.07) 02/10/22 04:42 Lactic Acid 2.9 mmol/L (0.5-2.2) H 02/09/22 08:04 Calcium 7.7 mg/dL (8.5-10.3) L 02/11/22 04:26 Total Bilirubin 5.6 mg/dL (0.2-1.0) H 02/08/22 14:02 AST 61 IU/L (10-42) H 02/08/22 14:02 ALT 33 IU/L (10-60) 02/08/22 14:02 Alkaline Phosphatase 169 IU/L (42-121) H 02/08/22 14:02 Ammonia 15.5 umol/L (7-35) 02/09/22 08:04 C-Reactive Protein 13.4 mg/dL (0-1.0) H 02/09/22 08:04 Total Protein 7.2 g/dL (6.7-8.2) 02/08/22 14:02 Albumin 2.4 g/dL (3.2-5.5) L 02/08/22 14:02 Globulin 4.8 g/dL (2.1-4.2) H 02/08/22 14:02 Albumin/Globulin Ratio 0.5 (1.0-2.2) L 02/08/22 14:02 Lipase 53 U/L (22-51) H 02/08/22 14:02 Vitamin B12 891 pg/mL (180-914) 02/10/22 04:42 Folate 5.36 ng/mL (5.90 - >24.8) L 02/10/22 04:42 Urine Color DARK YELLOW 02/08/22 14:48 Urine Clarity CLEAR (CLEAR) 02/08/22 14:48 Urine pH 5.0 PH (5.0-7.5) 02/08/22 14:48 Ur Specific [place] 1.020 (1.002-1.030) 02/08/22 14:48 Urine Protein NEGATIVE mg/dL (NEGATIVE) 02/08/22 14:48 Urine Glucose (UA) NEGATIVE mg/dL (NEGATIVE) 02/08/22 14:48 Urine Ketones NEGATIVE mg/dL (NEGATIVE) 02/08/22 14:48 Urine Occult Blood NEGATIVE (NEGATIVE) 02/08/22 14:48 Urine Nitrite NEGATIVE (NEGATIVE) 02/08/22 14:48 Urine Bilirubin NEGATIVE (NEGATIVE) 02/08/22 14:48 Urine Urobilinogen 0.2 (NORMAL) E.U./dL (NORMAL) 02/08/22 14:48 Ur Leukocyte Esterase NEGATIVE (NEGATIVE) 02/08/22 14:48 Ur Microscopic Review NOT INDICATED 02/08/22 14:48 Urine Culture Comments NOT INDICATED 02/08/22 14:48 Nasal Adenovirus (PCR) NOT DETECTED 02/08/22 15:23 Nasal B. parapertussis DNA (PCR) NOT DETECTED 02/08/22 15:23 Nasal Coronavir 229E PCR NOT DETECTED 02/08/22 15:23 Nasal Coronavir HKU1 PCR NOT DETECTED 02/08/22 15:23 Nasal Coronavir NL63 PCR NOT DETECTED 02/08/22 15:23 Nasal Coronavir OC43 PCR NOT DETECTED 02/08/22 15:23 Nasal Enterovir/Rhinovir PCR NOT DETECTED 02/08/22 15:23 Nasal Influenza B PCR NOT DETECTED 02/08/22 15:23 Nasal Influenza A PCR NOT DETECTED 02/08/22 15:23 Nasal Parainfluen 1 PCR NOT DETECTED 02/08/22 15:23 Nasal Parainfluen 2 PCR NOT DETECTED 02/08/22 15:23 Nasal Parainfluen 3 PCR NOT DETECTED 02/08/22 15:23 Nasal Parainfluen 4 PCR NOT DETECTED 02/08/22 15:23 Nasal RSV (PCR) NOT DETECTED 02/08/22 15:23 Nasal B.pertussis DNA PCR NOT DETECTED 02/08/22 15:23 Nasal C.pneumoniae (PCR) NOT DETECTED 02/08/22 15:23 [place] Human Metapneumo PCR NOT DETECTED 02/08/22 15:23 Nasal M.pneumoniae (PCR) NOT DETECTED 02/08/22 15:23 Nasal SARS-CoV-2 (PCR) NOT DETECTED 02/08/22 15:23
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
--- NOTE | 2022-02-11 13:35 | Ultrasound Report ---
PROCEDURE: Duplex Ext Veins Right INDICATIONS: R leg pain (thigh and stuart), eval for DVT TECHNIQUE: Real-time imaging, as well as color and pulse Doppler interrogation, were performed of the lower extr emity deep veins from the inguinal ligament to the popliteal fossa. COMPARISON: None. FINDINGS: The deep veins are normally compressible, and free of intraluminal thrombus. Color and pu lse Doppler demonstrate normal phasic intraluminal flow. There is normal augmentation response to di stal compression maneuver. IMPRESSION: No evidence of right lower extremity DVT. Reviewed by: Sahil Grande MD on 02/11/2022 1:34 PM PDT Approved by: Sahil Grande MD on 02/11/2022 1:34 PM PDT Station ID: [id number]
[2022-02-11] MEDS: TAMSULOSIN 0.4 MG CAPSULE PO SCH (20:41)
[2022-02-12] MEDS: SODIUM CHLORIDE FLUSH 0.9% 10 ML SYRINGE IVP SCH ×3 (00:07→17:09)
[2022-02-12] MEDS: HYDROcod/ACETAM 7.5 MG/325 MG TABLET PO PRN ×5 (00:07→18:32)
[2022-02-12 05:03] LABS: BASOPHILS % (AUTO) 0.4 %; EOSINOPHILS # (AUTO) 0.5 10^3/uL (0.0-0.7); EOSINOPHILS % (AUTO) 6.3 %; HGB - HEMOGLOBIN 8.3 g/dL (14.0-18.0); LYMPHOCYTES # (AUTO) 1.5 10^3/uL (1.5-3.5); LYMPHOCYTES % (AUTO) 17.8 %; MEAN CORPUSCULAR HEMOGLOBIN 35.9 pg (27.0-31.0); MEAN CORPUSCULAR HGB CONC 33.2 g/dL (32.0-36.0); MEAN CORPUSCULAR VOLUME 108.2 fL (80.0-94.0); MEAN PLATELET VOLUME 10.2 fL (7.4-11.4); MONOCYTES # (AUTO) 0.8 10^3/uL (0.0-1.0); MONOCYTES % (AUTO) 9.5 %; NEUTROPHILS # (AUTO) 5.4 10^3/uL (1.5-6.6); NEUTROPHILS % (AUTO) 65.4 %; PLT - PLATELET COUNT 63 10^3/uL (130-450); RED BLOOD COUNT 2.31 10^6/uL (4.70-6.10); RED CELL DISTRIBUTION WIDTH 14.7 % (12.0-15.0); WHITE BLOOD COUNT 8.2 x10^3/uL (4.8-10.8)
[2022-02-12] MEDS: BACLOFEN 10 MG TABLET PO SCH ×3 (05:18→21:08)
[2022-02-12 05:22] LABS: ALBUMIN/GLOBULIN RATIO 0.5 (1.0-2.2); BILIRUBIN,TOTAL 2.7 mg/dL (0.2-1.0); CALCIUM 8.1 mg/dL (8.5-10.3); TOTAL PROTEIN 6.1 g/dL (6.7-8.2)
[2022-02-12] MEDS: PRENATAL VITAMIN TABLET PO SCH (08:05)
[2022-02-12] MEDS: MIDODRINE 2.5 MG TABLET PO SCH ×3 (08:05→17:09)
[2022-02-12] MEDS: LACTULOSE 10 GM /15 ML UDC PO SCH ×2 (08:08→21:08)
--- NOTE | 2022-02-12 12:56 | PROVIDER PROGRESS NOTE ---
Assessment/Plan - Problem List (1) Gram-negative bacteremia Assessment/Plan: Blood cultures grew Hemophilus. The bacterial sensitivities were not done on thus bug. We increased the Rocephin dose from 2 gm daily to 3 gm daily due to his large BMI, and presence of bacteremia, discussed this with pharmacy. We had drawn a 2nd set of blood cultures and they are negative to date on IV Ceftriaxone. Since only 1 of 2 of the initial bld cx are pos, it is possibly a contaminant, however I will try to discuss with ID today. 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 He gets some benefit in pain relief from Vicodin and does not want anything stronger than that he told me. A W/U for DVT, because his pain seems out of proportion to the redness, was neg, done yesterday. A Gen Surg wound consult for recommendations about the wound was done by Gen Surg Dr Guillaume yesterday, and he had no new recommendations. Today will switch iv Ceftrioaxone to oral Keflex 500 mg qid, plus a probiotic and BECAUSE HE HAS A HIVES ALLERGIC RXN TO PCN, WILL KEEP HIM HOSPITALIZED TODAY TO ASSURE HE HAS NO SEVERE ALLERGIC REACTION TO oral KEFLEX. Plan [facility] tomorrow on oral antibiotics for an additional 10-14 days with F/U with his PCP Dr Davis. We have ordered OOB to chair 1-2 times/day. PT has been working with the pt and recommend PT rehab. I have ordered home health to provide him with PT, OT, bath aide, also RN and manager social responsibility since he may have noncompliance. All these plans were discussed with pt and and they are agreeable. (3) Chronic renal failure, stage 3b Conclusion/Plan: Due to hepatorenal failure. Patient states that this stabilized over the last few weeks. His max creatinine was 3.8 at [facility] as far as he remembers. He was down to 2.3 at admission. Creat improved to 2.0 after he got 1.5L of saline, which was then stopped due to anasarca. He has not been on his home doses of Torsemide or Spironolactone for about 3 days now. Will continue to hold the Torsemide and Spironolactone doses, since he has pre- renal BUN/creat ratio. I plan for him to be discharged getting his spironolactone and torsemide every other day Avoid nephrotoxins. Follow BMP daily This was discussed with pt and today. (4) Cirrhosis, non-alcoholic Conclusion/Plan: His meld score is 27 points or 19.6% mortality. He and his state that they are familiar with a meld score, they acknowledge that the overall prognosis is poor, they feel that he will outlive the predicted mortality that was predicted. (They have been very hesitant to go to Hospice because of their previous experience with Hospice and the fact that they feel that he will be oversedated with morphine or Ativan). He has more icterus the past 2 days And he has been more sleepy for the last 2 days. We presumed it was from getting Vicodin. He has been refusing his usual home doses of lactulose until I spoke to him yesterday. He said that he was in too much pain in the R leg to get up to the bedside commode to have a bowel movement, therefore refused lactulose. Doing that, his ammonia mane from 17 to 44. Ammonia level is back down to 24 today. Will follow Ammonia level and LFTs intermittently, especially with worsening icterus noted on exam. Yesterday I discussed with him, and present, the importance of treating his cirrhosis with the Lactulose and he agreed to no longer refuse it. (5) Anasarca Conclusion/Plan: As stated above, from cirrhosis and CKD. We will resume Torsemide and Spironolactone when appropriate, which I plan to be qod. (6) Anemia Conclusion/Plan: Hgb dropped after he received iv fluids: 9.4>> 8.3>> and he is very pale. He does not give a history of variceal bleeding. No recent change in the color of his stool. Has had chronic kidney disease for a while. Following CBC daily. Would transfuse if Hgb <7 Qualifiers: Anemia type: due to chronic kidney disease (7) Hyperkalemia Conclusion/Plan: Likely from CKD Follow BMP daily. No Torsemide or Spironolactone planned yet (8) Hypotension Conclusion/Plan: According to the discharge summary from [facility], he takes Midodrine. Therefore his hypotension was not from sepsis but from this chronic condition. We resumed his Midodrine 3 times daily with meals, and BP has improved to 120- 130 systolic. We ordered OOB to chair 1-2 times/day. (9) Morbid obesity, BMI 50-59 Conclusion/Plan: Requires 4 person assist at times to reposition in the bed. He states that he is ambulatory at home. he started PT and OT and more rehab with home health is planned We ordered OOB to chair 1-2 times/day. (10) Sepsis Assessment/Plan: Resolved, WBC is normal now - Current Meds Current Meds: Current Medications Generic Name Dose Route Start Last Admin Trade Name Freq PRN Reason Stop Dose Admin Hydrocodone Bitart/Acetaminophen 1 tab 02/09/22 08:38 02/12/22 09:24 Hydrocod/Acetam 7.5 Mg/325 Mg Tablet PO 1 tab Q4HR PRN Administration PAIN Baclofen 10 mg 02/08/22 18:23 02/12/22 05:18 Baclofen 10 Mg Tablet PO 10 mg TID JULIENNE Administration Lactulose 10 gm 02/08/22 21:00 02/12/22 08:08 Lactulose 10 Gm /15 Ml Udc PO 10 gm BID JULIENNE Administration Midodrine 5 mg 02/09/22 12:00 02/12/22 08:05 Midodrine 2.5 Mg Tablet PO 5 mg TIDWM UJLIENNE Administration Ondansetron HCl 4 mg 02/08/22 14:57 02/10/22 18:12 Ondansetron 4 Mg/2 Ml Vial IVP 4 mg Q6HR PRN Administration Nausea / Vomiting Multivit/Folic Acid/Iron 1 tab 02/11/22 09:00 02/12/22 08:05 Vitamin Tablet PO 1 tab DAILYWM JULIENNE Administration Sodium Chloride 10 ml 02/08/22 17:00 02/12/22 08:09 Sodium Chloride Flush 0.9% 10 Ml Syringe IVP 10 ml 0100,0900,1700 JULIENNE Administration Tamsulosin HCl 0.4 mg 02/10/22 19:08 02/11/22 20:41 Tamsulosin 0.4 Mg Capsule PO 0.4 mg QPM JULIENNE Administration - Lab Result Fish Bone Diagrams: 02/12/22 04:49 02/12/22 04:49 - Additional Planning My Orders: My Active Orders 02/11/22 11:56 Daily Weight [RC] 0600 02/11/22 Dinner DIET [Regular Diet] [DIET] 02/12/22 17:00 Saccharomyces Boulardii [Florastor] 250 mg PO BIDWM 02/12/22 18:00 cephALEXin [Keflex] 500 mg PO Q6HR 02/13/22 05:00 AMMONIA [CHEM] DAILYLAB CBC - COMP BLD CT W/AUTO DIFF [HEME] DAILYLAB 02/14/22 05:00 CBC - COMP BLD CT W/AUTO DIFF [HEME] DAILYLAB Subjective - Subjective Patient Reports: Other (He is naked, sitting in recliner chair, sleeping in recliner, awakens, has twitches and diffuse pruritis.) Objective Vital Signs: Vital Signs - 24 hr 02/11/22 02/11/22 02/11/22 13:00 16:00 20:41 Temperature 36.4 C L 36.6 C 36.5 C Heart Rate [ 92 88 89 Brachial] Respiratory 20 20 18 Rate Blood Pressure 132/55 H 128/46 L 147/54 H [Right Brachial artery] O2 Saturation 96 98 100 02/12/22 02/12/22 02/12/22 00:05 04:55 07:35 Temperature 36.5 C 36.4 C L 36.5 C Heart Rate [ 93 89 70 Brachial] Respiratory 20 18 18 Rate Blood Pressure 125/38 L 129/41 L 127/50 L [Right Brachial artery] O2 Saturation 98 97 98 Oxygen O2 Source Room air I&O (Last 24 Hrs): Intake and Output Totals x24h 02/10/22 02/11/22 02/12/22 23:59 23:59 23:59 Intake Total 1090 986 910 Output Total 580 1575 725 Balance 610 -589 185 General: Alert, Oriented x3, Other (Skin icteric. Upper extremity muscle twitches noted) HEENT: Mucous membr. moist/pink, Other (Icteric) Neck: Supple, Other (Cannot evaluate JVP due to morbid obesity) Neuro: Alert, Other (Somnolent. Muscle twitches intermittently of arms are seen.) Cardiovascular: Regular rate Respiratory: No respiratory distress Abdomen: Soft, Other (Obese with pannus) Genitourinary: Other (swollen scrotum) Extremities: Other (2+ edema bilaterally to the knees. Right anterior stuart is red and warm, extent is similar to yesterday, below the marked line.) - Results Results: Laboratory Results WBC 8.2 x10^3/uL (4.8-10.8) 02/12/22 04:49 RBC 2.31 10^6/uL (4.70-6.10) L 02/12/22 04:49 Hgb 8.3 g/dL (14.0-18.0) L 02/12/22 04:49 Hct 25.0 % (42.0-52.0) L 02/12/22 04:49 MCV 108.2 fL (80.0-94.0) H 02/12/22 04:49 MCH 35.9 pg (27.0-31.0) H 02/12/22 04:49 MCHC 33.2 g/dL (32.0-36.0) 02/12/22 04:49 RDW 14.7 % (12.0-15.0) 02/12/22 04:49 Plt Count 63 10^3/uL (130-450) L 02/12/22 04:49 MPV 10.2 fL (7.4-11.4) 02/12/22 04:49 Neut # (Auto) 5.4 10^3/uL (1.5-6.6) 02/12/22 04:49 Lymph # (Auto) 1.5 10^3/uL (1.5-3.5) 02/12/22 04:49 [place] # (Auto) 0.8 10^3/uL (0.0-1.0) 02/12/22 04:49 Eos # (Auto) 0.5 10^3/uL (0.0-0.7) 02/12/22 04:49 Baso # (Auto) 0.0 10^3/uL (0.0-0.1) 02/12/22 04:49 Absolute Nucleated RBC 0.00 x10^3/uL 02/12/22 04:49 Nucleated RBC % 0.0 /100WBC 02/12/22 04:49 ESR 60 mm/Hr (0-20) H 02/09/22 08:04 PT 19.4 secs (9.9-12.6) H 02/09/22 05:02 INR 1.8 (0.8-1.2) H 02/09/22 05:02 Sodium 135 mmol/L (135-145) 02/12/22 04:49 Potassium 5.0 mmol/L (3.5-5.0) 02/12/22 04:49 Chloride 101 mmol/L (101-111) 02/12/22 04:49 Carbon Dioxide 26 mmol/L (21-32) 02/12/22 04:49 Anion Gap 8.0 (6-13) 02/12/22 04:49 BUN 52 mg/dL (6-20) H 02/12/22 04:49 Creatinine 2.0 mg/dL (0.6-1.2) H 02/12/22 04:49 Estimated GFR (MDRD) 33 (>89) L 02/12/22 04:49 Glucose 111 mg/dL (70-100) H 02/12/22 04:49 Estimat Average Glucose 91 mg/dL (70-100) 02/10/22 04:42 Hemoglobin A1c % 4.8 % (4.27-6.07) 02/10/22 04:42 Lactic Acid 2.9 mmol/L (0.5-2.2) H 02/09/22 08:04 Calcium 8.1 mg/dL (8.5-10.3) L 02/12/22 04:49 Total Bilirubin 2.7 mg/dL (0.2-1.0) H 02/12/22 04:49 AST 73 IU/L (10-42) H 02/12/22 04:49 ALT 34 IU/L (10-60) 02/12/22 04:49 Alkaline Phosphatase 133 IU/L (42-121) H 02/12/22 04:49 Ammonia 21.4 umol/L (7-35) 02/12/22 09:13 C-Reactive Protein 13.4 mg/dL (0-1.0) H 02/09/22 08:04 Total Protein 6.1 g/dL (6.7-8.2) L 02/12/22 04:49 Albumin 2.0 g/dL (3.2-5.5) L 02/12/22 04:49 Globulin 4.1 g/dL (2.1-4.2) 02/12/22 04:49 Albumin/Globulin Ratio 0.5 (1.0-2.2) L 02/12/22 04:49 Lipase 53 U/L (22-51) H 02/08/22 14:02 Vitamin B12 891 pg/mL (180-914) 02/10/22 04:42 Folate 5.36 ng/mL (5.90 - >24.8) L 02/10/22 04:42 Urine Color DARK YELLOW 02/08/22 14:48 Urine Clarity CLEAR (CLEAR) 02/08/22 14:48 Urine pH 5.0 PH (5.0-7.5) 02/08/22 14:48 Ur Specific [place] 1.020 (1.002-1.030) 02/08/22 14:48 Urine Protein NEGATIVE mg/dL (NEGATIVE) 02/08/22 14:48 Urine Glucose (UA) NEGATIVE mg/dL (NEGATIVE) 02/08/22 14:48 Urine Ketones NEGATIVE mg/dL (NEGATIVE) 02/08/22 14:48 Urine Occult Blood NEGATIVE (NEGATIVE) 02/08/22 14:48 Urine Nitrite NEGATIVE (NEGATIVE) 02/08/22 14:48 Urine Bilirubin NEGATIVE (NEGATIVE) 02/08/22 14:48 Urine Urobilinogen 0.2 (NORMAL) E.U./dL (NORMAL) 02/08/22 14:48 Ur Leukocyte Esterase NEGATIVE (NEGATIVE) 02/08/22 14:48 Ur Microscopic Review NOT INDICATED 02/08/22 14:48 Urine Culture Comments NOT INDICATED 02/08/22 14:48 Nasal Adenovirus (PCR) NOT DETECTED 02/08/22 15:23 Nasal B. parapertussis DNA (PCR) NOT DETECTED 02/08/22 15:23 Nasal Coronavir 229E PCR NOT DETECTED 02/08/22 15:23 Nasal Coronavir HKU1 PCR NOT DETECTED 02/08/22 15:23 Nasal Coronavir NL63 PCR NOT DETECTED 02/08/22 15:23 Nasal Coronavir OC43 PCR NOT DETECTED 02/08/22 15:23 Nasal Enterovir/Rhinovir PCR NOT DETECTED 02/08/22 15:23 Nasal Influenza B PCR NOT DETECTED 02/08/22 15:23 Nasal Influenza A PCR NOT DETECTED 02/08/22 15:23 Nasal Parainfluen 1 PCR NOT DETECTED 02/08/22 15:23 Nasal Parainfluen 2 PCR NOT DETECTED 02/08/22 15:23 Nasal Parainfluen 3 PCR NOT DETECTED 02/08/22 15:23 Nasal Parainfluen 4 PCR NOT DETECTED 02/08/22 15:23 Nasal RSV (PCR) NOT DETECTED 02/08/22 15:23 Nasal B.pertussis DNA PCR NOT DETECTED 02/08/22 15:23 Nasal C.pneumoniae (PCR) NOT DETECTED 02/08/22 15:23 [place] Human Metapneumo PCR NOT DETECTED 02/08/22 15:23 Nasal M.pneumoniae (PCR) NOT DETECTED 02/08/22 15:23 Nasal SARS-CoV-2 (PCR) NOT DETECTED 02/08/22 15:23
[2022-02-12] MEDS: ONDANSETRON 4 MG/2 ML VIAL IVP PRN ×2 (13:11→17:09)
[2022-02-12] MEDS: SACCHAROMYCES BOULARDII 250 MG CAPSULE PO SCH (17:09)
[2022-02-12] MEDS: cephALEXin 250 MG CAPSULE PO SCH (18:32)
[2022-02-12] MEDS: TAMSULOSIN 0.4 MG CAPSULE PO SCH (21:08)
[2022-02-13] MEDS: cephALEXin 250 MG CAPSULE PO SCH ×2 (00:48→06:37)
[2022-02-13] MEDS: SODIUM CHLORIDE FLUSH 0.9% 10 ML SYRINGE IVP SCH (00:48)
[2022-02-13] MEDS: ONDANSETRON 4 MG/2 ML VIAL IVP PRN (00:48)
[2022-02-13 06:02] LABS: BASOPHILS % (AUTO) 0.5 %; EOSINOPHILS # (AUTO) 0.4 10^3/uL (0.0-0.7); EOSINOPHILS % (AUTO) 6.2 %; HCT - HEMATOCRIT 22.5 % (42.0-52.0); HGB - HEMOGLOBIN 7.5 g/dL (14.0-18.0); LYMPHOCYTES # (AUTO) 1.2 10^3/uL (1.5-3.5); LYMPHOCYTES % (AUTO) 19.1 %; MEAN CORPUSCULAR HEMOGLOBIN 36.2 pg (27.0-31.0); MEAN CORPUSCULAR HGB CONC 33.3 g/dL (32.0-36.0); MEAN CORPUSCULAR VOLUME 108.7 fL (80.0-94.0); MEAN PLATELET VOLUME 10.4 fL (7.4-11.4); MONOCYTES # (AUTO) 0.7 10^3/uL (0.0-1.0); MONOCYTES % (AUTO) 10.5 %; NEUTROPHILS # (AUTO) 4.1 10^3/uL (1.5-6.6); NEUTROPHILS % (AUTO) 63.1 %; PLT - PLATELET COUNT 62 10^3/uL (130-450); RED BLOOD COUNT 2.07 10^6/uL (4.70-6.10); RED CELL DISTRIBUTION WIDTH 14.5 % (12.0-15.0); WHITE BLOOD COUNT 6.5 x10^3/uL (4.8-10.8)
[2022-02-13] MEDS: BACLOFEN 10 MG TABLET PO SCH (06:37)
[2022-02-13 08:08] LABS: CALCIUM 7.8 mg/dL (8.5-10.3); CREATININE 1.9 mg/dL (0.6-1.2); POTASSIUM 5.5 mmol/L (3.5-5.0)
--- NOTE | 2022-02-13 08:10 | Discharge Plan ---
Discharge Plan Problem Reviewed?: Yes Disposition: Home Health Service Condition: Fair Prescriptions: Lactobacillus Acidophilus [Acidophilus Probiotic] 1 each PO DAILY #10 cap cephALEXin [Keflex] 500 mg PO QID #40 cap Vit No.180/Iron/Folic [ Plus Tablet] 1 each PO DAILY #30 tablet Diet: Regular Activity Restrictions: Activity as Tolerated Shower Restrictions: No Driving Restrictions: Yes Instruction Topics: Cellulitis Dc Ch Health Concerns: You were hospitalized to treat a skin and soft tissue infection of the R leg, that spread into your blood stream. You received 4 days of iv antibiotics and you are being discharged home and a prescription for 10 more days of oral antibiotics (plus a probiotic and a daily vitamin) have been ordered for you, by electronic prescription sent to [facility] in [place]. Please have follow-up with your Primary Care Provider (in person, or telemedicine or with photos of the leg sent to him) to determine if you need an even longer course of antibiotics. Since being admitted you received hardly any doses of your Spironolactone or Torsemide, to "protect" the kidneys and the legs did not have worsening swelling. Therefore, please take these 2 water pills only every other day, together, not daily. Discuss this dosing going forward when you speak to your Primary Care Provider. Please resume all your other pre-hospital medications (especially the Lactulos) and other pre-hospital management. A referral has been sent in for the Home Health agency to provide you with a Bath Aide, and Physical Therapist and Occupational Therapist. Plan of Treatment: As above. When you are seated or laying, you need to keep your right leg elevated, preferably above the level of your heart. Please do not become bedbound! Physical Therapist should be helping you get stronger, by working with you at your home. Care Goals: Improvement in symptoms and stabilization are the goals. Assessment: Patient and understand and are in agreement with the plan. Additional Instructions or Follow Up instructions: If you have new or worsening symptoms, call your PCP for advice or come to the ER. No Smoking: If you smoke, Please STOP! Call for help. Follow-up with: MIRIAM HARDIN MD [Physician No Access] -
[2022-02-13] MEDS: PRENATAL VITAMIN TABLET PO SCH (08:28)
[2022-02-13] MEDS: MIDODRINE 2.5 MG TABLET PO SCH (08:28)
[2022-02-13] MEDS: SACCHAROMYCES BOULARDII 250 MG CAPSULE PO SCH (08:29)
--- NOTE | 2022-02-13 09:30 | DISCHARGE SUMMARY ---
Discharge Summary Admit Date: 02/08/22 Discharge Date: 02/13/22 Discharging Provider: Dr Annamaria Cervantes Primary Care Provider: Dr Mitchel Davis Code Status: Attempt Resuscitation Condition at Discharge: Fair Discharge Disposition: [facility] - [facility] History of Present Illness: From the admission H&P of Dr Josefina Padilla: This 71 y/o WM is followed by Dr. Mitchel Davis at [facility]. Last seen by video teleconference about a week ago. He was diagnosed with nonalcoholic liver disease in 2014 and has had steady progression of his disease since then. He states that he has had chronic leg edema even before the cirrhosis. He had a "spider bite" that caused bubbling of his skin years ago, approximately 2004, and that is why his legs are swollen and red in addition to the cirrhosis. He describes his life is relatively stable and spite of this diagnosis of HALLMAN. He is able to walk, dress himself, feed himself. [place] have gone to [place] 3 [place] 4 times since his diagnosis. Starting in 2019, he developed more edema and decreased mobility around Janelle time. Without any intervention or change in medication, he would then spontaneously urinate quite a bit, in June 2020 and got rid of all the excess water weight he had. He did that again in the fall 2020 and again self diuresed in June 2021. He is very angry that his is giving me the history. He keeps on interjecting saying "I am perfectly able to tell my story". Unfortunately, the patient is very repetitive, conversation points wander and he cannot answer me at time, and I do need to refer to his several times. That makes him even angrier. He had already stated that he wanted to leave and go home in the [facility] room and I had discontinued his admit orders. He then changed his mind and asked to stay only overnight. But he keeps on interjecting that he may want to leave now and changes his mind again. Even though he was able to self diurese in June 2021, he started having increased water retention, leg edema by the spring. It was complicated by knee pain. So even though he needed to increase his diuretics he was skipping doses because of his knee pain and the frequent urination that the diuretic would induce. This finally culminated in a creatinine that was elevated, severe leg edema, and new shortness of breath that he hadn't had before. He was admitted to [facility] November 28 through December 17. He then starts raising his voice again and telling me that "they almost killed him". He states they over diuresed him and "almost killed my kidneys". They told him that he had a limited life span and probably only had a few more weeks to live. They did recommend hospice but he has refused. He had a "bad experience with hospice" when his mother in [place]. He also wants to maintain his sensorium and disagrees with the use of morphine and Ativan to help with the dying process. Since discharge, he has been followed by his primary care provider who has judiciously adjusted medications. The patient is satisfied with proving [facility] wrong because he is "still alive even after this and I was going to be ". He also explains that his primary care provider disagrees with [facility] and that his prognosis is not that serious. He has had increasing edema again over the last few days. Starting yesterday his right leg became slightly red and painful, and over the course of the day it continue to progress, so that now, the redness is up to his right knee. He has become very sedentary over the last couple of weeks. He is now using a lift chair. Because of that, he has developed having skin breakdown of his sacrum. He denies fever, chills. Denies any abdominal pain. Describes chronic leg edema, plus abdominal wall edema, and scrotal edema that severe. In the emergency room, his temperature was 37.1. Heart rate 100. Blood pressure 138/51. Respirations 22. Saturation 99% on room air. He is a morbidly obese male. Oriented to person and place. He has diffuse anasarca, but bedside ultrasound in the ER does not show fluid wave. Minimal ascites. Scrotum is huge. The legs have skin changes of chronic venous stasis with deformity of the ankles. The right leg is covered in a red hot skin discolorati on starting at the top of his right foot and extending all the way up two thirds of the stuart. He has satellite red dots above that going almost to the knee. He prefers to lay on his left side and reminds the nurses of that repetitively. He repeats his story at least 5 times about his dislike of [facility] and that they almost killed him. He is allergic to penicillin and has received vancomycin, clindamycin in the ER. We are placing him in Observation status to treat cellulitis. He states he does not want to stay longer than 1 midnight. - HOSPITAL COURSE Hospital Course: (1) Sepsis He had elevated white count 11>>12.6. He was hypotensive, had elevated lactic acid level that was 4.9>> 4.4 and elevated ESR and CRP with cellulitis. His blood cx turned positive on Day 1, and he was admitted to Inpatient status. We continued iv antibiotics and he received 1.5 L of fluid. Then iv fluids were stopped,because of his anasarca. (2) Cellulitis He was put on iv Ceftriaxone, and the area of redness of the R stuart slowly became smaller. He required Vicodin for pain relief and did not want anything stronger. A W/U for DVT was done, because his pain seemed out of proportion to the redness, and this was neg. A General Surg wound consult for recommendations about the wound was requested and done by Gen Surg Dr Guillaume, who had no new recommendations. Before discharge, we changed iv Ceftrioaxone to oral Keflex 500 mg qid BECAUSE HE HAS A HIVES ALLERGIC RXN TO PCN, TO ASSURE HE HAS NO SEVERE ALLERGIC REACTION TO oral KEFLEX. He was then discharged and advised to take Keflex plus a probiotic for an additional 10 days and advised to have with F/U with his PCP, Dr Davis. (3) Chronic renal failure, stage 3b This is due to hepatorenal failure. Patient states that the high creat from overdiuresis at , improved over the previous few weeks. His max creatinine w as 3.8 at [facility] as far as he remembers. His creat was 2.3 at admission here. Creat improved to 2.0 after he got 1.5L of saline, which was then stopped due to anasarca. He then did not get his home doses of Torsemide or Spironolactone, due to pre-renal BUN/creat ratio. But his creat remained stable at 2.0. At discharge, he was advised to use spironolactone and torsemide (together) every other day. (4) Cirrhosis, non-alcoholic His meld score is 27 points equating to 19.6% mortality. He and his state that they are familiar with the meld score, they acknowledge that the overall prognosis is poor, they feel that he will outlive the predicted mortality that was predicted. They have been very hesitant to go to Hospice because of their previous experience with Hospice and the fact that they feel that he will be oversedated with morphine or Ativan. He became more icteric over the last 3 days. We presumed it was from getting Vicodin, but learned he was refusing his usual home doses of lactulose because he was in too much pain in the R leg to get up to the bedside commode to have a bowel movement, therefore refused lactulose. Doing that, his Ammonia mane from 17 to 44. After being counseled about Lactulose, Ammonia level decreased to 24. (5) Anasarca As stated above, from cirrhosis and CKD. We did not resume Torsemide and Spironolactone while here, but gave no more iv fluids than 1.5 L the first day. The plan is to use both diuretics together, every other day. He was agreeable with this plan. (6) Anemia Hgb dropped after he received iv fluids: 9.4>> 8.3, then plateaued. He was very pale. He did not give a history of variceal bleeding or recent change in the color of his stool. It is likely anemia from chronic kidney disease. (7) Hyperkalemia His serum K was in the low 5's daily, likely from CKD. No Torsemide or Spironolactone were dosed while he was here. (8) Hypotension We obtained the discharge summary from [facility], and learned he takes Midodrine. Therefore his hypotension was possibly not from sepsis but from this chronic condition. We resumed his Midodrine 3 times daily with meals, and BP improved to 120-130 systolic. (9) Morbid obesity, BMI 50-59 He initially required 4 person assist to reposition in the bed, which got slightly beter. He states that he is ambulatory at home. He started PT and OT here, and more rehab with Home Health was planned and ordered. (10) Contamination of blood culture (R79.9) When his blood cx turned positive on Day 1, we increased the Rocephin dose from 2 gm daily to 3 gm daily due to his large BMI, and presence of bacteremia. Blood cultures grew Hemophilus. The bacterial sensitivities were not done on thus bug. Since only 1 of 2 of the initial bld cx were pos, it was felt to be a contaminant. We had drawn a 2nd set of blood cultures and they were negative to date on IV Ceftriaxone. - ALLERGIES Allergies/Adverse Reactions: Allergies Allergy/AdvReac Type Severity Reaction Status Date / Time Penicillins Allergy Hives Verified 02/08/22 13:08 - MEDICATIONS Home Medications: Ambulatory Orders Medication Instructions Recorded Confirmed Baclofen [Lioresal] 10 mg PO TID 02/09/22 02/09/22 Hydrocodone/Acetaminophen 1 tab PO Q4H PRN MDD 6 02/09/22 02/09/22 [Hydrocodone-Acetamin 10-325 mg] Lactulose 30 ml PO DAILY 02/09/22 02/09/22 Ondansetron Odt [Zofran Odt] 4 mg TL Q6H PRN 02/09/22 02/09/22 Tamsulosin [Flomax] 0.4 mg PO DAILY 02/09/22 02/09/22 Lactobacillus Acidophilus 1 each PO DAILY #10 cap 02/13/22 [Acidophilus Probiotic] Midodrine [ProAmatine] 5 mg PO TIDWM tablet 02/13/22 Vit No.180/Iron/Folic 1 each PO DAILY #30 tablet 02/13/22 [ Plus Tablet] Spironolactone [Aldactone] 300 mg PO Q48H #0 02/13/22 02/09/22 Torsemide 60 mg PO Q48H #0 02/13/22 02/09/22 cephALEXin [Keflex] 500 mg PO QID #40 cap 02/13/22 - PHYSICAL EXAM AT DISCHARGE General Appearance: positive: No acute distress, Alert, Lethargic Eyes Bilateral: positive: Normal inspection, Other (Scleral icterus present) ENT: positive: ENT inspection nml, No signs of dehydration Neck: positive: Nml inspection, Other (Morbidly obese and cannot eval JVP) Respiratory: positive: No respiratory distress, Breath sounds nml Cardiovascular: positive: Regular rate & rhythm, No murmur Rectal: positive: Non-tender, Other (Obese with a large pannus which has stretch bowens) Skin: positive: Pallor, Other (Icteric) Extremities: positive: Other (1+ edema to the knees bilat, R stuart has venous stasis discoloration, above that he has redness extending 2cm) Neurologic/Psychiatric: positive: Oriented x3, Other (Lethergic, has myoclonic jerks of arms, but no asterixis) - LABS Result Diagrams: 02/13/22 05:42 02/13/22 05:42 - DIAGNOSTIC IMAGING Diagnostic Imaging Results: Final report reviewed - FOLLOW UP Follow Up: See PCP in [place] or telehealth, in 10 days or less. - TIME SPENT Time Spent in Discharge (Minutes): 50
[2022-02-13 10:14] VITALS: BP 146/64
== END 2022-02-13 11:25 | disposition home health service (06) | DRG 871 ==
LOC: EDUNIT# → ED 12:54 → MS2 14:57 → UNDOADMOB 14:57 → INTOOBSV 14:57 → MS2 16:14 → UNDOADMOB 18:00 → MS2 18:00 → OBSVTOIN 02-09 08:35
PROVIDERS: ADMIT Specialist; ATTEND Internal Medicine
DX: A41.9 Sepsis, unspecified organism (principal); K76.7 Hepatorenal syndrome; L03.115 Cellulitis of right lower limb; Z68.43 Body mass index [BMI] 50.0-59.9, adult; R60.1 Generalized edema; K74.60 Unspecified cirrhosis of liver; E66.8 Other obesity; R60.0 Localized edema; Z20.822 Contact with and (suspected) exposure to COVID-19; K75.81 Nonalcoholic steatohepatitis (NASH); E66.01 Morbid (severe) obesity due to excess calories; I87.8 Other specified disorders of veins; N18.32 Chronic kidney disease, stage 3b; D63.1 Anemia in chronic kidney disease; E87.5 Hyperkalemia; G89.29 Other chronic pain; M54.9 Dorsalgia, unspecified; I95.9 Hypotension, unspecified; R73.03 Prediabetes; Z80.0 Family history of malignant neoplasm of digestive organs; Z82.49 Family history of ischemic heart disease and other diseases of the circulatory system; Z88.0 Allergy status to penicillin
CPT/HCPCS: 36415; 80048; 80053; 81003; 82140; 82607; 82746; 83036; 83605; 83690; 85025; 85610; 85651; 86140; 87040; 87077; 87150; 87633; 93971; 96365; 96366; 96367; 97163; 97165; 97530; 97535; 99284; 99285; A9270; J3370; J7040; 81001; 87086

== ENCOUNTER 2022-02-13 11:29 | Outpatient (CLI) | payer MEDICARE, BC | END 2022-02-13 11:30 | disposition home or self-care (01) | LOC: EMS 11:29 | PROVIDERS: ATTEND Internal Medicine | DX: L03.115 Cellulitis of right lower limb (principal); E66.01 Morbid (severe) obesity due to excess calories; Z74.01 Bed confinement status | CPT/HCPCS: A0425; A0428 ==

== ENCOUNTER 2022-02-26 11:45 | Outpatient (CLI) | payer BC, MEDICARE ==
[2022-02-26 12:01] LABS: BASOPHILS # (AUTO) 0.1 10^3/uL (0.0-0.1); BASOPHILS % (AUTO) 1.4 %; EOSINOPHILS # (AUTO) 0.3 10^3/uL (0.0-0.7); EOSINOPHILS % (AUTO) 5.8 %; HCT - HEMATOCRIT 24.4 % (42.0-52.0); HGB - HEMOGLOBIN 7.9 g/dL (14.0-18.0); LYMPHOCYTES # (AUTO) 1.2 10^3/uL (1.5-3.5); LYMPHOCYTES % (AUTO) 21.6 %; MEAN CORPUSCULAR HEMOGLOBIN 35.3 pg (27.0-31.0); MEAN CORPUSCULAR HGB CONC 32.4 g/dL (32.0-36.0); MEAN CORPUSCULAR VOLUME 108.9 fL (80.0-94.0); MEAN PLATELET VOLUME 8.9 fL (7.4-11.4); MONOCYTES # (AUTO) 0.5 10^3/uL (0.0-1.0); NEUTROPHILS # (AUTO) 3.6 10^3/uL (1.5-6.6); NEUTROPHILS % (AUTO) 62.9 %; PLT - PLATELET COUNT 82 10^3/uL (130-450); RED BLOOD COUNT 2.24 10^6/uL (4.70-6.10); WHITE BLOOD COUNT 5.7 x10^3/uL (4.8-10.8)
[2022-02-26 12:14] LABS: ALBUMIN 1.9 g/dL (3.2-5.5); ALBUMIN/GLOBULIN RATIO 0.4 (1.0-2.2); BILIRUBIN,TOTAL 3.5 mg/dL (0.2-1.0); CALCIUM 7.8 mg/dL (8.5-10.3); CREATININE 1.9 mg/dL (0.6-1.2); MAGNESIUM 1.6 mg/dL (1.7-2.8); POTASSIUM 3.9 mmol/L (3.5-5.0); TOTAL PROTEIN 6.5 g/dL (6.7-8.2)
[2022-02-26 12:17] LABS: INR 1.6 (0.8-1.2)
== END 2022-02-26 11:46 | disposition home or self-care (01) ==
LOC: LAB 11:45 → LAB.R 11:46
PROVIDERS: ATTEND Internal Medicine
DX: N18.32 Chronic kidney disease, stage 3b (principal); K74.69 Other cirrhosis of liver
CPT/HCPCS: 80053; 83735; 85025; 85610

== ENCOUNTER 2022-03-05 11:29 | Outpatient (CLI) | payer BC ==
[2022-03-05 15:32] LABS: BASOPHILS # (AUTO) 0.1 10^3/uL (0.0-0.1); BASOPHILS % (AUTO) 0.8 %; EOSINOPHILS # (AUTO) 0.6 10^3/uL (0.0-0.7); EOSINOPHILS % (AUTO) 9.8 %; HCT - HEMATOCRIT 26.5 % (42.0-52.0); HGB - HEMOGLOBIN 8.6 g/dL (14.0-18.0); LYMPHOCYTES # (AUTO) 1.5 10^3/uL (1.5-3.5); LYMPHOCYTES % (AUTO) 22.3 %; MEAN CORPUSCULAR HEMOGLOBIN 35.2 pg (27.0-31.0); MEAN CORPUSCULAR HGB CONC 32.5 g/dL (32.0-36.0); MEAN CORPUSCULAR VOLUME 108.6 fL (80.0-94.0); MEAN PLATELET VOLUME 9.4 fL (7.4-11.4); MONOCYTES # (AUTO) 0.6 10^3/uL (0.0-1.0); NEUTROPHILS # (AUTO) 3.8 10^3/uL (1.5-6.6); NEUTROPHILS % (AUTO) 57.8 %; PLT - PLATELET COUNT 69 10^3/uL (130-450); RED BLOOD COUNT 2.44 10^6/uL (4.70-6.10); RED CELL DISTRIBUTION WIDTH 14.5 % (12.0-15.0); WHITE BLOOD COUNT 6.6 x10^3/uL (4.8-10.8)
[2022-03-05 15:39] LABS: INR 1.5 (0.8-1.2); PT - PROTHROMBIN TIME 16.7 secs (9.9-12.6)
[2022-03-05 15:46] LABS: ALBUMIN 2.1 g/dL (3.2-5.5); ALBUMIN/GLOBULIN RATIO 0.5 (1.0-2.2); BILIRUBIN,TOTAL 3.8 mg/dL (0.2-1.0); CALCIUM 8.1 mg/dL (8.5-10.3); CREATININE 1.8 mg/dL (0.6-1.2); MAGNESIUM 1.7 mg/dL (1.7-2.8); POTASSIUM 4.3 mmol/L (3.5-5.0); TOTAL PROTEIN 6.5 g/dL (6.7-8.2)
== END 2022-03-05 11:30 | disposition home or self-care (01) ==
LOC: LAB.R 11:29
PROVIDERS: ATTEND Internal Medicine
DX: N18.32 Chronic kidney disease, stage 3b (principal); K74.69 Other cirrhosis of liver
CPT/HCPCS: 80053; 83735; 85025; 85610

== ENCOUNTER 2022-03-25 13:00 | Outpatient (CLI) | payer BC ==
[2022-03-25 13:10] LABS: BASOPHILS % (AUTO) 0.6 %; EOSINOPHILS # (AUTO) 0.5 10^3/uL (0.0-0.7); EOSINOPHILS % (AUTO) 6.6 %; HCT - HEMATOCRIT 28.7 % (42.0-52.0); HGB - HEMOGLOBIN 9.3 g/dL (14.0-18.0); LYMPHOCYTES # (AUTO) 1.9 10^3/uL (1.5-3.5); LYMPHOCYTES % (AUTO) 28.2 %; MEAN CORPUSCULAR HEMOGLOBIN 34.3 pg (27.0-31.0); MEAN CORPUSCULAR HGB CONC 32.4 g/dL (32.0-36.0); MEAN CORPUSCULAR VOLUME 105.9 fL (80.0-94.0); MEAN PLATELET VOLUME 9.2 fL (7.4-11.4); MONOCYTES # (AUTO) 0.6 10^3/uL (0.0-1.0); MONOCYTES % (AUTO) 8.3 %; NEUTROPHILS # (AUTO) 3.8 10^3/uL (1.5-6.6); PLT - PLATELET COUNT 69 10^3/uL (130-450); RED BLOOD COUNT 2.71 10^6/uL (4.70-6.10); WHITE BLOOD COUNT 6.8 x10^3/uL (4.8-10.8)
[2022-03-25 13:14] LABS: INR 1.5 (0.8-1.2)
[2022-03-25 13:22] LABS: ALBUMIN 1.9 g/dL (3.2-5.5); ALBUMIN/GLOBULIN RATIO 0.4 (1.0-2.2); BILIRUBIN,TOTAL 3.1 mg/dL (0.2-1.0); CREATININE 1.7 mg/dL (0.6-1.2); POTASSIUM 3.9 mmol/L (3.5-5.0); TOTAL PROTEIN 6.2 g/dL (6.7-8.2)
== END 2022-03-25 13:01 | disposition home or self-care (01) ==
LOC: LAB.R 13:00
PROVIDERS: ATTEND Internal Medicine
DX: N18.32 Chronic kidney disease, stage 3b (principal); K74.69 Other cirrhosis of liver
CPT/HCPCS: 80053; 83735; 85025; 85610

== ENCOUNTER 2022-04-02 11:25 | Outpatient (CLI) | payer BC ==
[2022-04-02 11:39] LABS: BASOPHILS # (AUTO) 0.1 10^3/uL (0.0-0.1); BASOPHILS % (AUTO) 0.8 %; EOSINOPHILS # (AUTO) 0.4 10^3/uL (0.0-0.7); HCT - HEMATOCRIT 31.3 % (42.0-52.0); HGB - HEMOGLOBIN 10.4 g/dL (14.0-18.0); LYMPHOCYTES # (AUTO) 2.1 10^3/uL (1.5-3.5); LYMPHOCYTES % (AUTO) 28.4 %; MEAN CORPUSCULAR HEMOGLOBIN 34.6 pg (27.0-31.0); MEAN CORPUSCULAR HGB CONC 33.2 g/dL (32.0-36.0); MEAN PLATELET VOLUME 9.7 fL (7.4-11.4); MONOCYTES # (AUTO) 0.7 10^3/uL (0.0-1.0); NEUTROPHILS # (AUTO) 4.2 10^3/uL (1.5-6.6); NEUTROPHILS % (AUTO) 56.4 %; PLT - PLATELET COUNT 85 10^3/uL (130-450); RED BLOOD COUNT 3.01 10^6/uL (4.70-6.10); RED CELL DISTRIBUTION WIDTH 13.6 % (12.0-15.0); WHITE BLOOD COUNT 7.5 x10^3/uL (4.8-10.8)
[2022-04-02 11:58] LABS: ALBUMIN 2.1 g/dL (3.2-5.5); ALBUMIN/GLOBULIN RATIO 0.5 (1.0-2.2); BILIRUBIN,TOTAL 3.4 mg/dL (0.2-1.0); CALCIUM 8.1 mg/dL (8.5-10.3); CREATININE 1.9 mg/dL (0.6-1.2); MAGNESIUM 1.8 mg/dL (1.7-2.8); POTASSIUM 3.6 mmol/L (3.5-5.0); TOTAL PROTEIN 6.6 g/dL (6.7-8.2)
== END 2022-04-02 11:26 | disposition home or self-care (01) ==
LOC: LAB.R 11:25
PROVIDERS: ATTEND Internal Medicine
DX: N18.32 Chronic kidney disease, stage 3b (principal); K74.69 Other cirrhosis of liver
CPT/HCPCS: 80053; 83735; 85025; 85610

== ENCOUNTER 2022-04-08 12:42 | Outpatient (CLI) | payer BC ==
[2022-04-08 12:52] LABS: BASOPHILS # (AUTO) 0.1 10^3/uL (0.0-0.1); BASOPHILS % (AUTO) 0.6 %; EOSINOPHILS # (AUTO) 0.2 10^3/uL (0.0-0.7); EOSINOPHILS % (AUTO) 2.8 %; HCT - HEMATOCRIT 32.8 % (42.0-52.0); HGB - HEMOGLOBIN 10.9 g/dL (14.0-18.0); LYMPHOCYTES % (AUTO) 23.1 %; MEAN CORPUSCULAR HEMOGLOBIN 34.6 pg (27.0-31.0); MEAN CORPUSCULAR HGB CONC 33.2 g/dL (32.0-36.0); MEAN CORPUSCULAR VOLUME 104.1 fL (80.0-94.0); MONOCYTES # (AUTO) 0.6 10^3/uL (0.0-1.0); MONOCYTES % (AUTO) 7.4 %; NEUTROPHILS # (AUTO) 5.6 10^3/uL (1.5-6.6); PLT - PLATELET COUNT 82 10^3/uL (130-450); RED BLOOD COUNT 3.15 10^6/uL (4.70-6.10); WHITE BLOOD COUNT 8.5 x10^3/uL (4.8-10.8)
[2022-04-08 13:06] LABS: INR 1.3 (0.8-1.2)
[2022-04-08 13:15] LABS: ALBUMIN 2.3 g/dL (3.2-5.5); ALBUMIN/GLOBULIN RATIO 0.5 (1.0-2.2); CALCIUM 8.6 mg/dL (8.5-10.3); CREATININE 2.5 mg/dL (0.6-1.2); MAGNESIUM 2.2 mg/dL (1.7-2.8); POTASSIUM 4.5 mmol/L (3.5-5.0); TOTAL PROTEIN 6.9 g/dL (6.7-8.2)
== END 2022-04-08 12:43 | disposition home or self-care (01) ==
LOC: LAB.R 12:42
PROVIDERS: ATTEND Internal Medicine
DX: K74.69 Other cirrhosis of liver (principal); N18.32 Chronic kidney disease, stage 3b
CPT/HCPCS: 80053; 83735; 85025; 85610

== ENCOUNTER 2022-04-16 11:40 | Outpatient (CLI) | payer BC ==
[2022-04-16 11:57] LABS: BASOPHILS # (AUTO) 0.1 10^3/uL (0.0-0.1); BASOPHILS % (AUTO) 0.8 %; EOSINOPHILS # (AUTO) 0.3 10^3/uL (0.0-0.7); EOSINOPHILS % (AUTO) 5.6 %; HCT - HEMATOCRIT 29.5 % (42.0-52.0); HGB - HEMOGLOBIN 9.9 g/dL (14.0-18.0); LYMPHOCYTES # (AUTO) 1.7 10^3/uL (1.5-3.5); LYMPHOCYTES % (AUTO) 27.9 %; MEAN CORPUSCULAR HEMOGLOBIN 35.1 pg (27.0-31.0); MEAN CORPUSCULAR HGB CONC 33.6 g/dL (32.0-36.0); MEAN CORPUSCULAR VOLUME 104.6 fL (80.0-94.0); MEAN PLATELET VOLUME 10.1 fL (7.4-11.4); MONOCYTES # (AUTO) 0.4 10^3/uL (0.0-1.0); MONOCYTES % (AUTO) 6.8 %; NEUTROPHILS # (AUTO) 3.5 10^3/uL (1.5-6.6); NEUTROPHILS % (AUTO) 58.6 %; PLT - PLATELET COUNT 59 10^3/uL (130-450); RED BLOOD COUNT 2.82 10^6/uL (4.70-6.10); RED CELL DISTRIBUTION WIDTH 13.7 % (12.0-15.0); WHITE BLOOD COUNT 5.9 x10^3/uL (4.8-10.8)
[2022-04-16 12:08] LABS: INR 1.3 (0.8-1.2); PT - PROTHROMBIN TIME 14.8 secs (9.9-12.6)
[2022-04-16 12:13] LABS: ALBUMIN/GLOBULIN RATIO 0.5 (1.0-2.2); BILIRUBIN,TOTAL 3.1 mg/dL (0.2-1.0); CALCIUM 7.8 mg/dL (8.5-10.3); CREATININE 1.6 mg/dL (0.6-1.2); MAGNESIUM 1.9 mg/dL (1.7-2.8); POTASSIUM 4.1 mmol/L (3.5-5.0); TOTAL PROTEIN 6.3 g/dL (6.7-8.2)
== END 2022-04-16 11:41 | disposition home or self-care (01) ==
LOC: LAB.R 11:40
PROVIDERS: ATTEND Internal Medicine
DX: N18.32 Chronic kidney disease, stage 3b (principal); K74.69 Other cirrhosis of liver
CPT/HCPCS: 80053; 83735; 85025; 85610

== ENCOUNTER 2022-04-23 11:27 | Outpatient (CLI) | payer BC ==
[2022-04-23 11:34] LABS: BASOPHILS # (AUTO) 0.1 10^3/uL (0.0-0.1); BASOPHILS % (AUTO) 0.7 %; EOSINOPHILS # (AUTO) 0.4 10^3/uL (0.0-0.7); EOSINOPHILS % (AUTO) 5.5 %; HCT - HEMATOCRIT 27.6 % (42.0-52.0); HGB - HEMOGLOBIN 9.2 g/dL (14.0-18.0); LYMPHOCYTES # (AUTO) 1.9 10^3/uL (1.5-3.5); LYMPHOCYTES % (AUTO) 27.2 %; MEAN CORPUSCULAR HEMOGLOBIN 34.3 pg (27.0-31.0); MEAN CORPUSCULAR HGB CONC 33.3 g/dL (32.0-36.0); MONOCYTES # (AUTO) 0.5 10^3/uL (0.0-1.0); MONOCYTES % (AUTO) 6.8 %; NEUTROPHILS # (AUTO) 4.2 10^3/uL (1.5-6.6); NEUTROPHILS % (AUTO) 59.5 %; PLT - PLATELET COUNT 54 10^3/uL (130-450); RED BLOOD COUNT 2.68 10^6/uL (4.70-6.10); RED CELL DISTRIBUTION WIDTH 14.4 % (12.0-15.0); WHITE BLOOD COUNT 7.1 x10^3/uL (4.8-10.8)
[2022-04-23 11:40] LABS: INR 1.4 (0.8-1.2); PT - PROTHROMBIN TIME 15.8 secs (9.9-12.6)
[2022-04-23 12:13] LABS: ALBUMIN/GLOBULIN RATIO 0.5 (1.0-2.2); BILIRUBIN,TOTAL 2.4 mg/dL (0.2-1.0); CALCIUM 7.9 mg/dL (8.5-10.3); CREATININE 1.9 mg/dL (0.6-1.2); MAGNESIUM 1.7 mg/dL (1.7-2.8); POTASSIUM 4.2 mmol/L (3.5-5.0); TOTAL PROTEIN 5.9 g/dL (6.7-8.2)
== END 2022-04-23 11:28 | disposition home or self-care (01) ==
LOC: LAB.R 11:27
PROVIDERS: ATTEND Internal Medicine
DX: K76.7 Hepatorenal syndrome (principal)
CPT/HCPCS: 80053; 83735; 85025; 85610

== ENCOUNTER 2022-05-03 11:13 | Outpatient (CLI) | payer BC ==
[2022-05-03 11:23] LABS: BASOPHILS % (AUTO) 0.6 %; EOSINOPHILS # (AUTO) 0.4 10^3/uL (0.0-0.7); EOSINOPHILS % (AUTO) 6.5 %; HCT - HEMATOCRIT 28.3 % (42.0-52.0); HGB - HEMOGLOBIN 9.3 g/dL (14.0-18.0); LYMPHOCYTES # (AUTO) 1.8 10^3/uL (1.5-3.5); LYMPHOCYTES % (AUTO) 26.7 %; MEAN CORPUSCULAR HEMOGLOBIN 33.8 pg (27.0-31.0); MEAN CORPUSCULAR HGB CONC 32.9 g/dL (32.0-36.0); MEAN CORPUSCULAR VOLUME 102.9 fL (80.0-94.0); MEAN PLATELET VOLUME 10.3 fL (7.4-11.4); MONOCYTES # (AUTO) 0.5 10^3/uL (0.0-1.0); MONOCYTES % (AUTO) 7.9 %; NEUTROPHILS # (AUTO) 3.8 10^3/uL (1.5-6.6); PLT - PLATELET COUNT 67 10^3/uL (130-450); RED BLOOD COUNT 2.75 10^6/uL (4.70-6.10); RED CELL DISTRIBUTION WIDTH 14.7 % (12.0-15.0); WHITE BLOOD COUNT 6.6 x10^3/uL (4.8-10.8)
[2022-05-03 11:29] LABS: INR 1.4 (0.8-1.2); PT - PROTHROMBIN TIME 15.4 secs (9.9-12.6)
[2022-05-03 11:39] LABS: ALBUMIN/GLOBULIN RATIO 0.5 (1.0-2.2); BILIRUBIN,TOTAL 3.1 mg/dL (0.2-1.0); MAGNESIUM 1.9 mg/dL (1.7-2.8); POTASSIUM 4.1 mmol/L (3.5-5.0); TOTAL PROTEIN 6.2 g/dL (6.7-8.2)
== END 2022-05-03 11:14 | disposition home or self-care (01) ==
LOC: LAB 11:13 → LAB.R 11:14
PROVIDERS: ATTEND Internal Medicine
DX: N18.32 Chronic kidney disease, stage 3b (principal); K74.69 Other cirrhosis of liver
CPT/HCPCS: 80053; 83735; 85025; 85610

== ENCOUNTER 2022-05-07 11:14 | Outpatient (CLI) | payer BC ==
[2022-05-07 11:21] LABS: BASOPHILS % (AUTO) 0.5 %; EOSINOPHILS # (AUTO) 0.4 10^3/uL (0.0-0.7); EOSINOPHILS % (AUTO) 4.4 %; HCT - HEMATOCRIT 27.9 % (42.0-52.0); HGB - HEMOGLOBIN 9.3 g/dL (14.0-18.0); LYMPHOCYTES % (AUTO) 25.5 %; MEAN CORPUSCULAR HEMOGLOBIN 34.4 pg (27.0-31.0); MEAN CORPUSCULAR HGB CONC 33.3 g/dL (32.0-36.0); MEAN CORPUSCULAR VOLUME 103.3 fL (80.0-94.0); MEAN PLATELET VOLUME 9.8 fL (7.4-11.4); MONOCYTES # (AUTO) 0.5 10^3/uL (0.0-1.0); MONOCYTES % (AUTO) 6.8 %; NEUTROPHILS % (AUTO) 62.5 %; PLT - PLATELET COUNT 64 10^3/uL (130-450); RED CELL DISTRIBUTION WIDTH 14.7 % (12.0-15.0)
[2022-05-07 11:35] LABS: ALBUMIN 1.9 g/dL (3.2-5.5); ALBUMIN/GLOBULIN RATIO 0.4 (1.0-2.2); BILIRUBIN,TOTAL 2.8 mg/dL (0.2-1.0); CALCIUM 7.9 mg/dL (8.5-10.3); CREATININE 2.1 mg/dL (0.6-1.2); MAGNESIUM 1.7 mg/dL (1.7-2.8); POTASSIUM 3.8 mmol/L (3.5-5.0); TOTAL PROTEIN 6.2 g/dL (6.7-8.2)
[2022-05-07 11:40] LABS: INR 1.4 (0.8-1.2)
== END 2022-05-07 11:15 | disposition home or self-care (01) ==
LOC: LAB.R 11:14
PROVIDERS: ATTEND Internal Medicine
DX: N18.32 Chronic kidney disease, stage 3b (principal); K74.69 Other cirrhosis of liver
CPT/HCPCS: 80053; 83735; 85025; 85610

== ENCOUNTER 2022-05-14 12:11 | Outpatient (CLI) | payer BC ==
[2022-05-14 12:22] LABS: BASOPHILS # (AUTO) 0.1 10^3/uL (0.0-0.1); BASOPHILS % (AUTO) 0.8 %; EOSINOPHILS # (AUTO) 0.5 10^3/uL (0.0-0.7); EOSINOPHILS % (AUTO) 5.6 %; HCT - HEMATOCRIT 27.4 % (42.0-52.0); HGB - HEMOGLOBIN 9.2 g/dL (14.0-18.0); LYMPHOCYTES # (AUTO) 2.2 10^3/uL (1.5-3.5); LYMPHOCYTES % (AUTO) 23.4 %; MEAN CORPUSCULAR HEMOGLOBIN 34.2 pg (27.0-31.0); MEAN CORPUSCULAR HGB CONC 33.6 g/dL (32.0-36.0); MEAN CORPUSCULAR VOLUME 101.9 fL (80.0-94.0); MEAN PLATELET VOLUME 10.1 fL (7.4-11.4); MONOCYTES # (AUTO) 0.7 10^3/uL (0.0-1.0); NEUTROPHILS # (AUTO) 5.8 10^3/uL (1.5-6.6); NEUTROPHILS % (AUTO) 62.9 %; PLT - PLATELET COUNT 70 10^3/uL (130-450); RED BLOOD COUNT 2.69 10^6/uL (4.70-6.10); RED CELL DISTRIBUTION WIDTH 15.1 % (12.0-15.0); WHITE BLOOD COUNT 9.3 x10^3/uL (4.8-10.8)
[2022-05-14 13:19] LABS: ALBUMIN/GLOBULIN RATIO 0.5 (1.0-2.2); BILIRUBIN,TOTAL 3.3 mg/dL (0.2-1.0); CREATININE 1.9 mg/dL (0.6-1.2); MAGNESIUM 1.8 mg/dL (1.7-2.8); POTASSIUM 4.1 mmol/L (3.5-5.0); TOTAL PROTEIN 6.2 g/dL (6.7-8.2)
== END 2022-05-14 12:12 | disposition home or self-care (01) ==
LOC: LAB.R 12:11
PROVIDERS: ATTEND Internal Medicine
DX: N18.32 Chronic kidney disease, stage 3b (principal); K74.69 Other cirrhosis of liver
CPT/HCPCS: 80053; 83735; 85025; 85610

== ENCOUNTER 2022-05-21 11:40 | Outpatient (CLI) | payer BC ==
[2022-05-21 12:14] LABS: ALBUMIN 2.2 g/dL (3.2-5.5); ALBUMIN/GLOBULIN RATIO 0.5 (1.0-2.2); BILIRUBIN,TOTAL 3.1 mg/dL (0.2-1.0); CREATININE 1.9 mg/dL (0.6-1.2); MAGNESIUM 1.8 mg/dL (1.7-2.8); POTASSIUM 4.3 mmol/L (3.5-5.0); TOTAL PROTEIN 6.6 g/dL (6.7-8.2)
[2022-05-21 12:41] LABS: BASOPHILS % (AUTO) 0.5 %; EOSINOPHILS # (AUTO) 0.4 10^3/uL (0.0-0.7); EOSINOPHILS % (AUTO) 4.4 %; HGB - HEMOGLOBIN 9.6 g/dL (14.0-18.0); LYMPHOCYTES # (AUTO) 1.6 10^3/uL (1.5-3.5); LYMPHOCYTES % (AUTO) 19.3 %; MEAN CORPUSCULAR VOLUME 106.4 fL (80.0-94.0); MEAN PLATELET VOLUME 10.4 fL (7.4-11.4); MONOCYTES # (AUTO) 0.6 10^3/uL (0.0-1.0); NEUTROPHILS # (AUTO) 5.8 10^3/uL (1.5-6.6); NEUTROPHILS % (AUTO) 68.4 %; PLT - PLATELET COUNT 71 10^3/uL (130-450); RED BLOOD COUNT 2.82 10^6/uL (4.70-6.10); RED CELL DISTRIBUTION WIDTH 15.3 % (12.0-15.0); WHITE BLOOD COUNT 8.5 x10^3/uL (4.8-10.8)
[2022-05-21 12:56] LABS: INR 1.4 (0.8-1.2); PT - PROTHROMBIN TIME 15.1 secs (9.9-12.6)
== END 2022-05-21 11:41 | disposition home or self-care (01) ==
LOC: LAB.R 11:40
PROVIDERS: ATTEND Internal Medicine
DX: N18.32 Chronic kidney disease, stage 3b (principal); K74.69 Other cirrhosis of liver
CPT/HCPCS: 80053; 83735; 85025; 85610

== ENCOUNTER 2022-05-27 13:39 | Outpatient (CLI) | payer BC ==
[2022-05-27 13:50] LABS: BASOPHILS # (AUTO) 0.1 10^3/uL (0.0-0.1); BASOPHILS % (AUTO) 0.7 %; EOSINOPHILS # (AUTO) 0.4 10^3/uL (0.0-0.7); EOSINOPHILS % (AUTO) 4.1 %; HCT - HEMATOCRIT 28.7 % (42.0-52.0); HGB - HEMOGLOBIN 9.5 g/dL (14.0-18.0); LYMPHOCYTES # (AUTO) 1.6 10^3/uL (1.5-3.5); LYMPHOCYTES % (AUTO) 18.3 %; MEAN CORPUSCULAR HEMOGLOBIN 34.8 pg (27.0-31.0); MEAN CORPUSCULAR HGB CONC 33.1 g/dL (32.0-36.0); MEAN CORPUSCULAR VOLUME 105.1 fL (80.0-94.0); MEAN PLATELET VOLUME 9.7 fL (7.4-11.4); MONOCYTES # (AUTO) 0.6 10^3/uL (0.0-1.0); MONOCYTES % (AUTO) 7.3 %; NEUTROPHILS # (AUTO) 5.9 10^3/uL (1.5-6.6); NEUTROPHILS % (AUTO) 69.2 %; PLT - PLATELET COUNT 67 10^3/uL (130-450); RED BLOOD COUNT 2.73 10^6/uL (4.70-6.10); RED CELL DISTRIBUTION WIDTH 15.5 % (12.0-15.0); WHITE BLOOD COUNT 8.5 x10^3/uL (4.8-10.8)
[2022-05-27 13:59] LABS: ALBUMIN 2.1 g/dL (3.2-5.5); ALBUMIN/GLOBULIN RATIO 0.5 (1.0-2.2); BILIRUBIN,TOTAL 3.4 mg/dL (0.2-1.0); CALCIUM 7.9 mg/dL (8.5-10.3); CREATININE 2.4 mg/dL (0.6-1.2); MAGNESIUM 1.7 mg/dL (1.7-2.8); POTASSIUM 4.2 mmol/L (3.5-5.0); TOTAL PROTEIN 6.3 g/dL (6.7-8.2)
[2022-05-27 14:05] LABS: INR 1.3 (0.8-1.2); PT - PROTHROMBIN TIME 14.8 secs (9.9-12.6)
== END 2022-05-27 13:40 | disposition home or self-care (01) ==
LOC: LAB 13:39 → LAB.R 13:40
PROVIDERS: ATTEND Internal Medicine
DX: N18.32 Chronic kidney disease, stage 3b (principal); K74.69 Other cirrhosis of liver
CPT/HCPCS: 80053; 83735; 85025; 85610

== ENCOUNTER 2022-06-04 12:18 | Outpatient (CLI) | payer BC ==
[2022-06-04 12:30] LABS: BASOPHILS # (AUTO) 0.1 10^3/uL (0.0-0.1); BASOPHILS % (AUTO) 0.8 %; EOSINOPHILS # (AUTO) 0.5 10^3/uL (0.0-0.7); EOSINOPHILS % (AUTO) 6.1 %; HCT - HEMATOCRIT 27.7 % (42.0-52.0); HGB - HEMOGLOBIN 9.1 g/dL (14.0-18.0); LYMPHOCYTES # (AUTO) 1.8 10^3/uL (1.5-3.5); LYMPHOCYTES % (AUTO) 20.9 %; MEAN CORPUSCULAR HEMOGLOBIN 34.5 pg (27.0-31.0); MEAN CORPUSCULAR HGB CONC 32.9 g/dL (32.0-36.0); MEAN CORPUSCULAR VOLUME 104.9 fL (80.0-94.0); MEAN PLATELET VOLUME 10.3 fL (7.4-11.4); MONOCYTES # (AUTO) 0.7 10^3/uL (0.0-1.0); MONOCYTES % (AUTO) 7.6 %; NEUTROPHILS # (AUTO) 5.5 10^3/uL (1.5-6.6); NEUTROPHILS % (AUTO) 64.2 %; PLT - PLATELET COUNT 74 10^3/uL (130-450); RED BLOOD COUNT 2.64 10^6/uL (4.70-6.10); RED CELL DISTRIBUTION WIDTH 15.7 % (12.0-15.0); WHITE BLOOD COUNT 8.5 x10^3/uL (4.8-10.8)
[2022-06-04 12:44] LABS: ALBUMIN/GLOBULIN RATIO 0.5 (1.0-2.2); CALCIUM 7.9 mg/dL (8.5-10.3); CREATININE 2.1 mg/dL (0.6-1.2); MAGNESIUM 1.4 mg/dL (1.7-2.8); TOTAL PROTEIN 6.4 g/dL (6.7-8.2)
[2022-06-04 12:56] LABS: INR 1.4 (0.8-1.2); PT - PROTHROMBIN TIME 15.6 secs (9.9-12.6)
== END 2022-06-04 12:19 | disposition home or self-care (01) ==
LOC: LAB.R 12:18
PROVIDERS: ATTEND Internal Medicine
DX: K74.60 Unspecified cirrhosis of liver (principal); K76.7 Hepatorenal syndrome; D63.1 Anemia in chronic kidney disease
CPT/HCPCS: 80053; 83735; 85025; 85610

== ENCOUNTER 2022-06-18 13:16 | Outpatient (CLI) | payer BC ==
[2022-06-18 13:31] LABS: BASOPHILS # (AUTO) 0.1 10^3/uL (0.0-0.1); BASOPHILS % (AUTO) 0.7 %; EOSINOPHILS # (AUTO) 0.4 10^3/uL (0.0-0.7); EOSINOPHILS % (AUTO) 5.3 %; HCT - HEMATOCRIT 26.7 % (42.0-52.0); HGB - HEMOGLOBIN 8.8 g/dL (14.0-18.0); LYMPHOCYTES # (AUTO) 1.8 10^3/uL (1.5-3.5); LYMPHOCYTES % (AUTO) 21.3 %; MEAN CORPUSCULAR HEMOGLOBIN 34.5 pg (27.0-31.0); MEAN CORPUSCULAR VOLUME 104.7 fL (80.0-94.0); MEAN PLATELET VOLUME 10.1 fL (7.4-11.4); MONOCYTES # (AUTO) 0.5 10^3/uL (0.0-1.0); MONOCYTES % (AUTO) 6.4 %; NEUTROPHILS # (AUTO) 5.5 10^3/uL (1.5-6.6); NEUTROPHILS % (AUTO) 65.9 %; PLT - PLATELET COUNT 73 10^3/uL (130-450); RED BLOOD COUNT 2.55 10^6/uL (4.70-6.10); RED CELL DISTRIBUTION WIDTH 14.8 % (12.0-15.0); WHITE BLOOD COUNT 8.3 x10^3/uL (4.8-10.8)
[2022-06-18 13:48] LABS: INR 1.3 (0.8-1.2); PT - PROTHROMBIN TIME 14.9 secs (9.9-12.6)
[2022-06-18 14:06] LABS: ALBUMIN 1.9 g/dL (3.2-5.5); ALBUMIN/GLOBULIN RATIO 0.5 (1.0-2.2); BILIRUBIN,TOTAL 3.2 mg/dL (0.2-1.0); CALCIUM 7.9 mg/dL (8.5-10.3); CREATININE 1.6 mg/dL (0.6-1.2); MAGNESIUM 1.7 mg/dL (1.7-2.8)
== END 2022-06-18 13:17 | disposition home or self-care (01) ==
LOC: LAB.R 13:16
PROVIDERS: ATTEND Internal Medicine
DX: N18.32 Chronic kidney disease, stage 3b (principal); K74.69 Other cirrhosis of liver
CPT/HCPCS: 80053; 83735; 85025; 85610

== ENCOUNTER 2022-07-16 11:18 | Outpatient (CLI) | payer BC ==
[2022-07-16 11:24] LABS: BASOPHILS # (AUTO) 0.1 10^3/uL (0.0-0.1); BASOPHILS % (AUTO) 0.6 %; EOSINOPHILS # (AUTO) 0.6 10^3/uL (0.0-0.7); EOSINOPHILS % (AUTO) 6.7 %; HCT - HEMATOCRIT 28.1 % (42.0-52.0); LYMPHOCYTES # (AUTO) 1.4 10^3/uL (1.5-3.5); LYMPHOCYTES % (AUTO) 14.6 %; MEAN CORPUSCULAR HEMOGLOBIN 34.5 pg (27.0-31.0); MEAN CORPUSCULAR VOLUME 107.7 fL (80.0-94.0); MEAN PLATELET VOLUME 9.3 fL (7.4-11.4); MONOCYTES # (AUTO) 0.6 10^3/uL (0.0-1.0); MONOCYTES % (AUTO) 6.5 %; NEUTROPHILS # (AUTO) 6.8 10^3/uL (1.5-6.6); NEUTROPHILS % (AUTO) 71.1 %; PLT - PLATELET COUNT 76 10^3/uL (130-450); RED BLOOD COUNT 2.61 10^6/uL (4.70-6.10); RED CELL DISTRIBUTION WIDTH 14.7 % (12.0-15.0); WHITE BLOOD COUNT 9.6 x10^3/uL (4.8-10.8)
[2022-07-16 11:32] LABS: INR 1.5 (0.8-1.2); PT - PROTHROMBIN TIME 16.3 secs (9.9-12.6)
[2022-07-16 11:41] LABS: ALBUMIN 1.8 g/dL (3.2-5.5); ALBUMIN/GLOBULIN RATIO 0.4 (1.0-2.2); BILIRUBIN,TOTAL 3.7 mg/dL (0.2-1.0); CALCIUM 7.9 mg/dL (8.5-10.3); CREATININE 1.9 mg/dL (0.6-1.2); MAGNESIUM 1.6 mg/dL (1.7-2.8); POTASSIUM 3.9 mmol/L (3.5-5.0); TOTAL PROTEIN 6.3 g/dL (6.7-8.2)
== END 2022-07-16 11:19 | disposition home or self-care (01) ==
LOC: LAB.R 11:18
PROVIDERS: ATTEND Internal Medicine
DX: N18.32 Chronic kidney disease, stage 3b (principal); K74.69 Other cirrhosis of liver
CPT/HCPCS: 80053; 83735; 85025; 85610

== ENCOUNTER 2022-07-26 15:48 | Outpatient (CLI) | payer BC ==
[2022-07-26 16:37] LABS: BASOPHILS # (AUTO) 0.1 10^3/uL (0.0-0.1); BASOPHILS % (AUTO) 0.6 %; EOSINOPHILS # (AUTO) 0.4 10^3/uL (0.0-0.7); EOSINOPHILS % (AUTO) 3.9 %; HCT - HEMATOCRIT 28.3 % (42.0-52.0); HGB - HEMOGLOBIN 9.3 g/dL (14.0-18.0); LYMPHOCYTES # (AUTO) 1.8 10^3/uL (1.5-3.5); LYMPHOCYTES % (AUTO) 17.2 %; MEAN CORPUSCULAR HEMOGLOBIN 34.3 pg (27.0-31.0); MEAN CORPUSCULAR HGB CONC 32.9 g/dL (32.0-36.0); MEAN CORPUSCULAR VOLUME 104.4 fL (80.0-94.0); MEAN PLATELET VOLUME 10.2 fL (7.4-11.4); MONOCYTES # (AUTO) 0.7 10^3/uL (0.0-1.0); MONOCYTES % (AUTO) 6.6 %; NEUTROPHILS # (AUTO) 7.3 10^3/uL (1.5-6.6); NEUTROPHILS % (AUTO) 71.1 %; PLT - PLATELET COUNT 85 10^3/uL (130-450); RED BLOOD COUNT 2.71 10^6/uL (4.70-6.10); RED CELL DISTRIBUTION WIDTH 14.8 % (12.0-15.0); WHITE BLOOD COUNT 10.2 x10^3/uL (4.8-10.8)
[2022-07-26 16:49] LABS: ALBUMIN 1.8 g/dL (3.2-5.5); ALBUMIN/GLOBULIN RATIO 0.4 (1.0-2.2); BILIRUBIN,TOTAL 4.9 mg/dL (0.2-1.0); CALCIUM 9.1 mg/dL (8.5-10.3); MAGNESIUM 1.6 mg/dL (1.7-2.8); POTASSIUM 3.9 mmol/L (3.5-5.0); TOTAL PROTEIN 6.3 g/dL (6.7-8.2)
[2022-07-26 16:51] LABS: INR 1.6 (0.8-1.2); PT - PROTHROMBIN TIME 17.4 secs (9.9-12.6)
== END 2022-07-26 23:59 | disposition home or self-care (01) ==
LOC: LAB.R 15:48
PROVIDERS: ATTEND Internal Medicine
DX: N18.32 Chronic kidney disease, stage 3b (principal); K74.69 Other cirrhosis of liver
CPT/HCPCS: 80053; 83735; 85025; 85610

== ENCOUNTER 2022-08-09 12:45 | Outpatient (CLI) | payer BC ==
[2022-08-09 13:06] LABS: BASOPHILS # (AUTO) 0.1 10^3/uL (0.0-0.1); BASOPHILS % (AUTO) 0.6 %; EOSINOPHILS # (AUTO) 0.3 10^3/uL (0.0-0.7); EOSINOPHILS % (AUTO) 3.7 %; HCT - HEMATOCRIT 26.8 % (42.0-52.0); HGB - HEMOGLOBIN 9.1 g/dL (14.0-18.0); LYMPHOCYTES # (AUTO) 1.4 10^3/uL (1.5-3.5); LYMPHOCYTES % (AUTO) 16.1 %; MEAN CORPUSCULAR VOLUME 103.1 fL (80.0-94.0); MONOCYTES # (AUTO) 0.5 10^3/uL (0.0-1.0); NEUTROPHILS # (AUTO) 6.2 10^3/uL (1.5-6.6); NEUTROPHILS % (AUTO) 72.8 %; PLT - PLATELET COUNT 72 10^3/uL (130-450); RED CELL DISTRIBUTION WIDTH 15.4 % (12.0-15.0); WHITE BLOOD COUNT 8.6 x10^3/uL (4.8-10.8)
[2022-08-09 13:24] LABS: ALBUMIN 1.8 g/dL (3.2-5.5); ALBUMIN/GLOBULIN RATIO 0.4 (1.0-2.2); CALCIUM 7.9 mg/dL (8.5-10.3); CREATININE 1.9 mg/dL (0.6-1.2); MAGNESIUM 1.7 mg/dL (1.7-2.8); POTASSIUM 3.7 mmol/L (3.5-5.0); TOTAL PROTEIN 6.1 g/dL (6.7-8.2)
== END 2022-08-09 12:46 | disposition home or self-care (01) ==
LOC: LAB.R 12:45
PROVIDERS: ATTEND Internal Medicine
DX: N18.32 Chronic kidney disease, stage 3b (principal); K74.69 Other cirrhosis of liver
CPT/HCPCS: 80053; 83735; 85025; 85610

== ENCOUNTER 2022-08-23 08:00 | Outpatient (CLI) | payer BC ==
[2022-08-23 13:57] LABS: BASOPHILS # (AUTO) 0.1 10^3/uL (0.0-0.1); BASOPHILS % (AUTO) 0.9 %; EOSINOPHILS # (AUTO) 0.4 10^3/uL (0.0-0.7); EOSINOPHILS % (AUTO) 4.9 %; HCT - HEMATOCRIT 27.9 % (42.0-52.0); HGB - HEMOGLOBIN 9.3 g/dL (14.0-18.0); LYMPHOCYTES # (AUTO) 1.6 10^3/uL (1.5-3.5); LYMPHOCYTES % (AUTO) 19.7 %; MEAN CORPUSCULAR HEMOGLOBIN 35.1 pg (27.0-31.0); MEAN CORPUSCULAR HGB CONC 33.3 g/dL (32.0-36.0); MEAN CORPUSCULAR VOLUME 105.3 fL (80.0-94.0); MEAN PLATELET VOLUME 9.4 fL (7.4-11.4); MONOCYTES # (AUTO) 0.5 10^3/uL (0.0-1.0); MONOCYTES % (AUTO) 6.8 %; NEUTROPHILS # (AUTO) 5.4 10^3/uL (1.5-6.6); NEUTROPHILS % (AUTO) 67.4 %; PLT - PLATELET COUNT 70 10^3/uL (130-450); RED BLOOD COUNT 2.65 10^6/uL (4.70-6.10); RED CELL DISTRIBUTION WIDTH 15.2 % (12.0-15.0)
[2022-08-23 14:10] LABS: ALBUMIN 1.8 g/dL (3.2-5.5); ALBUMIN/GLOBULIN RATIO 0.4 (1.0-2.2); BILIRUBIN,TOTAL 3.1 mg/dL (0.2-1.0); CALCIUM 7.7 mg/dL (8.5-10.3); MAGNESIUM 1.6 mg/dL (1.7-2.8); POTASSIUM 3.7 mmol/L (3.5-5.0); TOTAL PROTEIN 6.1 g/dL (6.7-8.2)
[2022-08-23 14:12] LABS: INR 1.6 (0.8-1.2); PT - PROTHROMBIN TIME 17.8 secs (9.9-12.6)
== END 2022-08-23 23:59 | disposition home or self-care (01) ==
LOC: LAB.R 08:00
PROVIDERS: ATTEND Internal Medicine
DX: N18.32 Chronic kidney disease, stage 3b (principal); K74.69 Other cirrhosis of liver
CPT/HCPCS: 80053; 83735; 85025; 85610

== ENCOUNTER 2022-09-06 11:46 | Outpatient (CLI) | payer BC ==
[2022-09-06 11:53] LABS: BASOPHILS # (AUTO) 0.1 10^3/uL (0.0-0.1); BASOPHILS % (AUTO) 0.7 %; EOSINOPHILS # (AUTO) 0.5 10^3/uL (0.0-0.7); EOSINOPHILS % (AUTO) 4.6 %; HCT - HEMATOCRIT 29.3 % (42.0-52.0); LYMPHOCYTES # (AUTO) 1.8 10^3/uL (1.5-3.5); LYMPHOCYTES % (AUTO) 17.4 %; MEAN CORPUSCULAR HEMOGLOBIN 35.6 pg (27.0-31.0); MEAN CORPUSCULAR HGB CONC 34.1 g/dL (32.0-36.0); MEAN CORPUSCULAR VOLUME 104.3 fL (80.0-94.0); MEAN PLATELET VOLUME 9.2 fL (7.4-11.4); MONOCYTES # (AUTO) 0.7 10^3/uL (0.0-1.0); MONOCYTES % (AUTO) 6.2 %; NEUTROPHILS # (AUTO) 7.5 10^3/uL (1.5-6.6); NEUTROPHILS % (AUTO) 70.5 %; PLT - PLATELET COUNT 76 10^3/uL (130-450); RED BLOOD COUNT 2.81 10^6/uL (4.70-6.10); RED CELL DISTRIBUTION WIDTH 14.7 % (12.0-15.0); WHITE BLOOD COUNT 10.6 x10^3/uL (4.8-10.8)
[2022-09-06 12:09] LABS: ALBUMIN 1.9 g/dL (3.2-5.5); ALBUMIN/GLOBULIN RATIO 0.4 (1.0-2.2); CALCIUM 7.9 mg/dL (8.5-10.3); MAGNESIUM 1.7 mg/dL (1.7-2.8); POTASSIUM 3.4 mmol/L (3.5-5.0); TOTAL PROTEIN 6.6 g/dL (6.7-8.2)
== END 2022-09-06 11:47 | disposition home or self-care (01) ==
LOC: LAB.R 11:46
PROVIDERS: ATTEND Internal Medicine
DX: N18.32 Chronic kidney disease, stage 3b (principal); K72.90 Hepatic failure, unspecified without coma
CPT/HCPCS: 80053; 83735; 85025

== ENCOUNTER 2022-09-08 13:25 | Outpatient (CLI) | payer BC ==
[2022-09-08 13:50] LABS: INR 1.8 (0.8-1.2); PT - PROTHROMBIN TIME 19.2 secs (9.9-12.6)
== END 2022-09-08 13:26 | disposition home or self-care (01) ==
LOC: LAB.R 13:25
PROVIDERS: ATTEND Internal Medicine
DX: K76.7 Hepatorenal syndrome (principal)
CPT/HCPCS: 85610

== ENCOUNTER 2022-09-15 11:10 | Outpatient (CLI) | payer BC ==
[2022-09-15 11:22] LABS: BASOPHILS # (AUTO) 0.1 10^3/uL (0.0-0.1); BASOPHILS % (AUTO) 0.5 %; EOSINOPHILS # (AUTO) 0.4 10^3/uL (0.0-0.7); EOSINOPHILS % (AUTO) 3.3 %; HCT - HEMATOCRIT 26.3 % (42.0-52.0); HGB - HEMOGLOBIN 8.8 g/dL (14.0-18.0); LYMPHOCYTES # (AUTO) 1.8 10^3/uL (1.5-3.5); LYMPHOCYTES % (AUTO) 15.5 %; MEAN CORPUSCULAR HEMOGLOBIN 35.1 pg (27.0-31.0); MEAN CORPUSCULAR HGB CONC 33.5 g/dL (32.0-36.0); MEAN CORPUSCULAR VOLUME 104.8 fL (80.0-94.0); MEAN PLATELET VOLUME 9.5 fL (7.4-11.4); MONOCYTES # (AUTO) 0.9 10^3/uL (0.0-1.0); MONOCYTES % (AUTO) 7.9 %; NEUTROPHILS # (AUTO) 8.2 10^3/uL (1.5-6.6); NEUTROPHILS % (AUTO) 71.9 %; PLT - PLATELET COUNT 64 10^3/uL (130-450); RED BLOOD COUNT 2.51 10^6/uL (4.70-6.10); RED CELL DISTRIBUTION WIDTH 15.2 % (12.0-15.0); WHITE BLOOD COUNT 11.4 x10^3/uL (4.8-10.8)
[2022-09-15 11:29] LABS: INR 1.8 (0.8-1.2); PT - PROTHROMBIN TIME 19.3 secs (9.9-12.6)
[2022-09-15 11:37] LABS: ALBUMIN 1.7 g/dL (3.2-5.5); ALBUMIN/GLOBULIN RATIO 0.4 (1.0-2.2); CALCIUM 8.1 mg/dL (8.5-10.3); CREATININE 2.4 mg/dL (0.6-1.2); MAGNESIUM 1.7 mg/dL (1.7-2.8); POTASSIUM 3.4 mmol/L (3.5-5.0)
== END 2022-09-15 11:11 | disposition home or self-care (01) ==
LOC: LAB.R 11:10
PROVIDERS: ATTEND Internal Medicine
DX: N18.32 Chronic kidney disease, stage 3b (principal); K76.7 Hepatorenal syndrome
CPT/HCPCS: 80053; 83735; 85025; 85610

== ENCOUNTER 2022-09-20 12:09 | Outpatient (CLI) | payer BC ==
[2022-09-20 12:18] LABS: BASOPHILS % (AUTO) 0.4 %; EOSINOPHILS # (AUTO) 0.5 10^3/uL (0.0-0.7); HCT - HEMATOCRIT 25.1 % (42.0-52.0); HGB - HEMOGLOBIN 8.6 g/dL (14.0-18.0); LYMPHOCYTES # (AUTO) 1.8 10^3/uL (1.5-3.5); LYMPHOCYTES % (AUTO) 17.9 %; MEAN CORPUSCULAR HEMOGLOBIN 35.4 pg (27.0-31.0); MEAN CORPUSCULAR HGB CONC 34.3 g/dL (32.0-36.0); MEAN CORPUSCULAR VOLUME 103.3 fL (80.0-94.0); MEAN PLATELET VOLUME 9.4 fL (7.4-11.4); MONOCYTES # (AUTO) 0.7 10^3/uL (0.0-1.0); MONOCYTES % (AUTO) 6.5 %; NEUTROPHILS % (AUTO) 69.4 %; PLT - PLATELET COUNT 59 10^3/uL (130-450); RED BLOOD COUNT 2.43 10^6/uL (4.70-6.10); RED CELL DISTRIBUTION WIDTH 15.6 % (12.0-15.0)
[2022-09-20 12:42] LABS: INR 1.7 (0.8-1.2); PT - PROTHROMBIN TIME 18.7 secs (9.9-12.6)
[2022-09-20 13:07] LABS: ALBUMIN 1.8 g/dL (3.2-5.5); ALBUMIN/GLOBULIN RATIO 0.4 (1.0-2.2); BILIRUBIN,TOTAL 5.1 mg/dL (0.2-1.0); CALCIUM 7.8 mg/dL (8.5-10.3); CREATININE 2.7 mg/dL (0.6-1.2); MAGNESIUM 2.1 mg/dL (1.7-2.8); POTASSIUM 4.1 mmol/L (3.5-5.0)
== END 2022-09-20 12:10 | disposition home or self-care (01) ==
LOC: LAB 12:09
PROVIDERS: ATTEND Internal Medicine
DX: N18.32 Chronic kidney disease, stage 3b (principal); K76.7 Hepatorenal syndrome
CPT/HCPCS: 36415; 80053; 83735; 85025; 85610

== ENCOUNTER 2022-09-24 13:47 | Outpatient (CLI) | payer BC ==
[2022-09-24 13:54] LABS: BASOPHILS % (AUTO) 0.4 %; EOSINOPHILS # (AUTO) 0.4 10^3/uL (0.0-0.7); EOSINOPHILS % (AUTO) 3.6 %; HCT - HEMATOCRIT 26.4 % (42.0-52.0); HGB - HEMOGLOBIN 8.8 g/dL (14.0-18.0); LYMPHOCYTES # (AUTO) 1.4 10^3/uL (1.5-3.5); LYMPHOCYTES % (AUTO) 14.2 %; MEAN CORPUSCULAR HEMOGLOBIN 35.2 pg (27.0-31.0); MEAN CORPUSCULAR HGB CONC 33.3 g/dL (32.0-36.0); MEAN CORPUSCULAR VOLUME 105.6 fL (80.0-94.0); MEAN PLATELET VOLUME 9.2 fL (7.4-11.4); MONOCYTES # (AUTO) 0.6 10^3/uL (0.0-1.0); MONOCYTES % (AUTO) 6.5 %; NEUTROPHILS # (AUTO) 7.2 10^3/uL (1.5-6.6); NEUTROPHILS % (AUTO) 74.5 %; PLT - PLATELET COUNT 52 10^3/uL (130-450); RED CELL DISTRIBUTION WIDTH 15.6 % (12.0-15.0); WHITE BLOOD COUNT 9.7 x10^3/uL (4.8-10.8)
[2022-09-24 14:04] LABS: INR 1.6 (0.8-1.2); PT - PROTHROMBIN TIME 17.8 secs (9.9-12.6)
[2022-09-24 14:10] LABS: ALBUMIN 1.9 g/dL (3.2-5.5); ALBUMIN/GLOBULIN RATIO 0.4 (1.0-2.2); BILIRUBIN,TOTAL 5.5 mg/dL (0.2-1.0); CALCIUM 8.1 mg/dL (8.5-10.3); CREATININE 2.5 mg/dL (0.6-1.2); MAGNESIUM 2.2 mg/dL (1.7-2.8); POTASSIUM 3.8 mmol/L (3.5-5.0); TOTAL PROTEIN 6.4 g/dL (6.7-8.2)
[2022-09-24 20:01] LABS: BILIRUBIN,URINE NEGATIVE (NEGATIVE); GLUCOSE, URINE (UA) NEGATIVE (NEGATIVE); KETONES,URINE (UA) NEGATIVE (NEGATIVE); LEUKOCYTE ESTERASE, URINE NEGATIVE (NEGATIVE); NITRITE,URINE NEGATIVE (NEGATIVE); OCCULT BLOOD,URINE NEGATIVE (NEGATIVE); PH,URINE 5.5 PH (5.0-7.5); PROTEIN,URINE NEGATIVE (NEGATIVE); UROBILINOGEN,URINE 0.2 (NORMAL) E.U./dL (NORMAL)
[2022-09-24 20:07] LABS: CLARITY,URINE CLEAR (CLEAR)
== END 2022-09-24 13:48 | disposition home or self-care (01) ==
LOC: LAB.R 13:47
PROVIDERS: ATTEND Internal Medicine
DX: K76.7 Hepatorenal syndrome (principal); N18.32 Chronic kidney disease, stage 3b; D63.1 Anemia in chronic kidney disease
CPT/HCPCS: 80053; 80069; 81001; 81003; 83735; 85025; 85610; 87086

== ENCOUNTER 2022-09-30 12:38 | Outpatient (CLI) | payer BC ==
[2022-09-30 12:46] LABS: BASOPHILS # (AUTO) 0.1 10^3/uL (0.0-0.1); BASOPHILS % (AUTO) 0.5 %; EOSINOPHILS # (AUTO) 0.3 10^3/uL (0.0-0.7); EOSINOPHILS % (AUTO) 2.4 %; HCT - HEMATOCRIT 25.2 % (42.0-52.0); HGB - HEMOGLOBIN 8.6 g/dL (14.0-18.0); LYMPHOCYTES # (AUTO) 1.7 10^3/uL (1.5-3.5); LYMPHOCYTES % (AUTO) 12.9 %; MEAN CORPUSCULAR HEMOGLOBIN 35.7 pg (27.0-31.0); MEAN CORPUSCULAR HGB CONC 34.1 g/dL (32.0-36.0); MEAN CORPUSCULAR VOLUME 104.6 fL (80.0-94.0); MEAN PLATELET VOLUME 9.5 fL (7.4-11.4); MONOCYTES # (AUTO) 0.7 10^3/uL (0.0-1.0); MONOCYTES % (AUTO) 5.5 %; NEUTROPHILS # (AUTO) 10.3 10^3/uL (1.5-6.6); NEUTROPHILS % (AUTO) 77.9 %; PLT - PLATELET COUNT 57 10^3/uL (130-450); RED BLOOD COUNT 2.41 10^6/uL (4.70-6.10); RED CELL DISTRIBUTION WIDTH 15.2 % (12.0-15.0); WHITE BLOOD COUNT 13.2 x10^3/uL (4.8-10.8)
[2022-09-30 12:55] LABS: INR 1.7 (0.8-1.2); PT - PROTHROMBIN TIME 18.6 secs (9.9-12.6)
[2022-09-30 13:00] LABS: ALBUMIN 1.7 g/dL (3.2-5.5); ALBUMIN/GLOBULIN RATIO 0.4 (1.0-2.2); BILIRUBIN,TOTAL 5.4 mg/dL (0.2-1.0); CALCIUM 7.6 mg/dL (8.5-10.3); CREATININE 2.6 mg/dL (0.6-1.2); POTASSIUM 3.8 mmol/L (3.5-5.0); TOTAL PROTEIN 6.2 g/dL (6.7-8.2)
== END 2022-09-30 12:39 | disposition home or self-care (01) ==
LOC: LAB.R 12:38
PROVIDERS: ATTEND Internal Medicine
DX: K76.7 Hepatorenal syndrome (principal); N18.32 Chronic kidney disease, stage 3b
CPT/HCPCS: 80053; 83735; 85025; 85610

== ENCOUNTER 2022-10-06 11:15 | Outpatient (CLI) | payer BC ==
[2022-10-06 11:35] LABS: ALBUMIN 1.5 g/dL (3.2-5.5); ALBUMIN/GLOBULIN RATIO 0.4 (1.0-2.2); BILIRUBIN,TOTAL 4.5 mg/dL (0.2-1.0); CREATININE 3.5 mg/dL (0.6-1.2); MAGNESIUM 2.1 mg/dL (1.7-2.8); POTASSIUM 4.3 mmol/L (3.5-5.0); TOTAL PROTEIN 5.4 g/dL (6.7-8.2)
[2022-10-06 11:43] LABS: BASOPHILS % (AUTO) 0.2 %; EOSINOPHILS # (AUTO) 0.1 10^3/uL (0.0-0.7); EOSINOPHILS % (AUTO) 1.6 %; HCT - HEMATOCRIT 21.2 % (42.0-52.0); HGB - HEMOGLOBIN 7.1 g/dL (14.0-18.0); LYMPHOCYTES % (AUTO) 11.9 %; MEAN CORPUSCULAR HEMOGLOBIN 35.3 pg (27.0-31.0); MEAN CORPUSCULAR HGB CONC 33.5 g/dL (32.0-36.0); MEAN CORPUSCULAR VOLUME 105.5 fL (80.0-94.0); MEAN PLATELET VOLUME 10.3 fL (7.4-11.4); MONOCYTES # (AUTO) 0.5 10^3/uL (0.0-1.0); MONOCYTES % (AUTO) 6.3 %; NEUTROPHILS # (AUTO) 6.8 10^3/uL (1.5-6.6); NEUTROPHILS % (AUTO) 79.4 %; PLT - PLATELET COUNT 46 10^3/uL (130-450); RED BLOOD COUNT 2.01 10^6/uL (4.70-6.10); RED CELL DISTRIBUTION WIDTH 15.6 % (12.0-15.0); WHITE BLOOD COUNT 8.6 x10^3/uL (4.8-10.8)
[2022-10-06 11:56] LABS: INR 2.1 (0.8-1.2); PT - PROTHROMBIN TIME 22.2 secs (9.9-12.6)
== END 2022-10-06 11:16 | disposition home or self-care (01) ==
LOC: LAB.R 11:15
PROVIDERS: ATTEND Internal Medicine
DX: N18.32 Chronic kidney disease, stage 3b (principal); K76.7 Hepatorenal syndrome
CPT/HCPCS: 80053; 83735; 85025; 85610

== ENCOUNTER 2022-10-06 16:48 | Outpatient (CLI) | payer BC | END 2022-10-06 16:49 | disposition critical access hospital (66) | LOC: EMS 16:48 | DX: R53.1 Weakness (principal); R06.02 Shortness of breath; R79.9 Abnormal finding of blood chemistry, unspecified | CPT/HCPCS: A0425; A0429 ==

== ENCOUNTER 2022-10-06 17:25 | Emergency (ER) | payer BC ==
--- NOTE | 2022-10-06 17:46 | ED Physician Documentation ---
History of Present Illness - Stated complaint Stated Complaint: SOA - Chief complaint Chief Complaint: Resp - History obtained from History obtained from: Patient, EMS - History of Present Illness Timing: How many weeks ago (1) - Additonal information Additional information: Leonid whitaker this is a 71-year-old male with a history of Mazariegos who has developed cirrhosis and he is in the end stage of his disease. He was told last summer by the [place] that he had months to live. He has been treated in our hospital last February after he developed a cellulitis in his leg and he felt the care he got here was excellent. He returns here today at the instruction of his physician who asked him to come to the emergency department for treatment and evaluation when his BUN and creatinine were more elevated than normal and his hemoglobin and hematocrit lower than normal. He is asked to come to the emergency department to get a transfusion and fluid. The patient states that he is currently not feeling ill with any other problem but he is feeling weak and has been increasingly becoming weak over the past week Review of Systems Constitutional: reports: Sweats. denies: Fever, Chills Eyes: denies: Decreased vision Ears: denies: Ear pain Nose: denies: Congestion Throat: denies: Sore throat Cardiac: denies: Chest pain / pressure, Palpitations Respiratory: reports: Dyspnea. denies: Cough GI: reports: Abdominal Pain (if he does not eat), Nausea, Vomiting (dry heaves has zofran) : denies: Dysuria, Frequency, Discharge Musculoskeletal: reports: Extremity swelling (mild). denies: Neck pain, Back pain, Extremity pain Neurologic: reports: Generalized weakness. denies: Focal weakness, Numbness PD PAST MEDICAL HISTORY - Past Medical History Cardiovascular: Other Respiratory: Shortness of breath Endocrine/Autoimmune: Other GI: Other : Chronic bladder infection HEENT: None Psych: None Musculoskeletal: Other Derm: None, Other - Present Medications Home Medications: Ambulatory Orders Medication Instructions Recorded Confirmed Baclofen [Lioresal] 10 mg PO TID 02/09/22 02/09/22 Hydrocodone/Acetaminophen 1 tab PO Q4H PRN MDD 6 02/09/22 02/09/22 [Hydrocodone-Acetamin 10-325 mg] Lactulose 30 ml PO DAILY 02/09/22 02/09/22 Ondansetron Odt [Zofran Odt] 4 mg TL Q6H PRN 02/09/22 02/09/22 Tamsulosin [Flomax] 0.4 mg PO DAILY 02/09/22 02/09/22 Lactobacillus Acidophilus 1 each PO DAILY #10 cap 02/13/22 [Acidophilus Probiotic] Midodrine [ProAmatine] 5 mg PO TIDWM tablet 02/13/22 Vit No.180/Iron/Folic 1 each PO DAILY #30 tablet 02/13/22 [ Plus Tablet] Spironolactone [Aldactone] 300 mg PO Q48H #0 02/13/22 02/09/22 Torsemide 60 mg PO Q48H #0 02/13/22 02/09/22 cephALEXin [Keflex] 500 mg PO QID #40 cap 02/13/22 - Allergies Allergies/Adverse Reactions: Allergies Allergy/AdvReac Type Severity Reaction Status Date / Time Penicillins Allergy Hives Verified 02/08/22 13:08 - Social History Smoking Status: Never smoker Does the pt have substance abuse?: No - POLST Patient has POLST: No POLST Status: Full Code PD ED PE NORMAL - Vitals Vital signs reviewed: Yes (wide pulse pressure) - General General: Alert and oriented X 3, Well developed/nourished, Other (1 second speech latency 2 seconds for motor commands. ) - HEENT HEENT: Atraumatic, PERRL, EOMI - Neck Neck: Supple, no meningeal sign, No bony TTP - Cardiac Cardiac: Other (tachy to 100 with 2/6 holosystolic murmer at LSB) - Respiratory Respiratory: No respiratory distress, Clear bilaterally - Abdomen Abdomen: Normal bowel sounds, Non tender, Other (Large firm distended abdomen consistent with ascites without fluid wave. 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, No motor deficit, No sensory deficit, Normal speech Eye Opening: Spontaneous Motor: Obeys Commands Verbal: Oriented GCS Score: 15 - Psych Psych: Normal mood, Normal affect Results - Vitals Vitals: Vital Signs - 24 hr 10/06/22 10/06/22 17:28 17:32 Temperature 35.8 C L Heart Rate 96 95 Respiratory 20 16 Rate Blood Pressure 112/46 L 99/51 L O2 Saturation 98 98 Oxygen O2 Source Room air - Labs Labs: Laboratory Tests 10/06/22 10/06/22 10/06/22 17:41 17:41 18:22 WBC 12.4 H RBC 2.36 L Hgb 8.3 L Hct 24.9 L MCV 105.5 H MCH 35.2 H MCHC 33.3 RDW 15.9 H Plt Count 58 L MPV 9.9 Neut # (Auto) 9.8 H Lymph # (Auto) 1.3 L [place] # (Auto) 0.9 Eos # (Auto) 0.2 Baso # (Auto) 0.0 Absolute Nucleated RBC 0.00 Nucleated RBC % 0.0 Sodium 130 L Potassium 4.3 Chloride 99 L Carbon Dioxide 23 Anion Gap 8.0 BUN 63 H Creatinine 3.3 H Estimated GFR (MDRD) 19 L Glucose 191 H Calcium 8.4 L Total Bilirubin 5.3 H AST 41 ALT 28 Alkaline Phosphatase 169 H B-Natriuretic Peptide 51 Total Protein 6.2 L Albumin 1.7 L Globulin 4.5 H Albumin/Globulin Ratio 0.4 L Lipase 71 H - Rads (name of study) chest Relevant Findings:: Prelim report reviewed (Impression: No acute process.), EMP independent interpretation of test Procedures - IVC sono (time) 1750 Bedside IVC sono: IVC measures (cm) (unable to image (gas)) PD Medical Decision Making - ED course Complexity details: reviewed old records, reviewed results, re-evaluated patient, considered differential, d/w patient, d/w family Reviewed Lab Results: We reviewed a complete blood count showing an elevated white blood cell count 12.4 hemoglobin low at 8.3 and hematocrit low at 24.9. Platelets were low at 58,000 these are all low numbers for this patient chemistries were checked serum sodium was low at 130 BUN and creatinine are elevated at 63 and 3.3 normal is 2.5 for the creatinine. Liver functions show elevated bilirubin at 5.3 which is similar to prior. My interpretation of these results are chronic liver disease with worsening renal function and anemia. ED course: 71-year-old male with advanced cirrhosis presents to the emergency department with generalized weakness and exertional dyspnea he is found to have anemia as well as volume depletion. He is administered intravenous saline and an order is made for a unit of blood. At the shift change his care is turned over to the oncoming emergency department physician with anticipation of completing a transfusion, rechecking labs and potentially discharge from the ED. There are no beds in the hospital today.
[2022-10-06 17:59] LABS: BASOPHILS % (AUTO) 0.3 %; EOSINOPHILS # (AUTO) 0.2 10^3/uL (0.0-0.7); EOSINOPHILS % (AUTO) 1.5 %; HCT - HEMATOCRIT 24.9 % (42.0-52.0); HGB - HEMOGLOBIN 8.3 g/dL (14.0-18.0); LYMPHOCYTES # (AUTO) 1.3 10^3/uL (1.5-3.5); LYMPHOCYTES % (AUTO) 10.1 %; MEAN CORPUSCULAR HEMOGLOBIN 35.2 pg (27.0-31.0); MEAN CORPUSCULAR HGB CONC 33.3 g/dL (32.0-36.0); MEAN CORPUSCULAR VOLUME 105.5 fL (80.0-94.0); MEAN PLATELET VOLUME 9.9 fL (7.4-11.4); MONOCYTES # (AUTO) 0.9 10^3/uL (0.0-1.0); MONOCYTES % (AUTO) 7.5 %; NEUTROPHILS # (AUTO) 9.8 10^3/uL (1.5-6.6); NEUTROPHILS % (AUTO) 79.7 %; PLT - PLATELET COUNT 58 10^3/uL (130-450); RED BLOOD COUNT 2.36 10^6/uL (4.70-6.10); RED CELL DISTRIBUTION WIDTH 15.9 % (12.0-15.0); WHITE BLOOD COUNT 12.4 x10^3/uL (4.8-10.8)
[2022-10-06] MEDS: SODIUM CHLORIDE 0.9% 500 ML IV STA (18:12)
--- NOTE | 2022-10-06 18:17 | XRAY Report ---
PROCEDURE: Chest 1 View X-Ray INDICATIONS: chest pain TECHNIQUE: One view of the chest was acquired. COMPARISON: None. FINDINGS: Surgical changes and devices: None. Lungs and pleura: No pleural effusions or pneumothorax. Lungs are clear. Mediastinum: Mediastinal contours appear normal. Heart size is normal. Bones and chest wall: No suspicious bony lesions. Overlying soft tissues appear unremarkable. IMPRESSION: No acute process. Reviewed by: Sahil Grande MD on 10/06/2022 6:15 PM PDT Approved by: Sahil Grande MD on 10/06/2022 6:15 PM PDT Station ID: [id number]
[2022-10-06 18:44] LABS: ALBUMIN 1.7 g/dL (3.2-5.5); ALBUMIN/GLOBULIN RATIO 0.4 (1.0-2.2); BILIRUBIN,TOTAL 5.3 mg/dL (0.2-1.0); CALCIUM 8.4 mg/dL (8.5-10.3); CREATININE 3.3 mg/dL (0.6-1.2); POTASSIUM 4.3 mmol/L (3.5-5.0); TOTAL PROTEIN 6.2 g/dL (6.7-8.2)
[2022-10-06] MEDS: SODIUM CHLORIDE 0.9% 1,000 ML IV STA (19:22)
--- NOTE | 2022-10-06 20:28 | ED Physician Documentation ---
History of Present Illness - Stated complaint Stated Complaint: SOA - Chief complaint Chief Complaint: Resp PD PAST MEDICAL HISTORY - Past Medical History Cardiovascular: Other Respiratory: Shortness of breath Endocrine/Autoimmune: Other GI: Other : Chronic bladder infection HEENT: None Psych: None Musculoskeletal: Other Derm: None, Other - Present Medications Home Medications: Ambulatory Orders Medication Instructions Recorded Confirmed Baclofen [Lioresal] 10 mg PO TID 02/09/22 02/09/22 Hydrocodone/Acetaminophen 1 tab PO Q4H PRN MDD 6 02/09/22 02/09/22 [Hydrocodone-Acetamin 10-325 mg] Lactulose 30 ml PO DAILY 02/09/22 02/09/22 Ondansetron Odt [Zofran Odt] 4 mg TL Q6H PRN 02/09/22 02/09/22 Tamsulosin [Flomax] 0.4 mg PO DAILY 02/09/22 02/09/22 Lactobacillus Acidophilus 1 each PO DAILY #10 cap 02/13/22 [Acidophilus Probiotic] Midodrine [ProAmatine] 5 mg PO TIDWM tablet 02/13/22 Vit No.180/Iron/Folic 1 each PO DAILY #30 tablet 02/13/22 [ Plus Tablet] Spironolactone [Aldactone] 300 mg PO Q48H #0 02/13/22 02/09/22 Torsemide 60 mg PO Q48H #0 02/13/22 02/09/22 cephALEXin [Keflex] 500 mg PO QID #40 cap 02/13/22 - Allergies Allergies/Adverse Reactions: Allergies Allergy/AdvReac Type Severity Reaction Status Date / Time Penicillins Allergy Hives Verified 02/08/22 13:08 - Social History Smoking Status: Never smoker Does the pt have substance abuse?: No - POLST Patient has POLST: No POLST Status: Full Code Results - Vitals Vitals: Vital Signs - 24 hr 10/06/22 10/06/22 10/06/22 17:28 17:32 19:48 Temperature 35.8 C L 36.6 C Heart Rate 96 95 Heart Rate [ 96 Radial] Respiratory 20 16 16 Rate Blood Pressure 112/46 L 99/51 L Blood Pressure 118/55 L [Right Radial artery] O2 Saturation 98 98 97 10/06/22 10/06/22 10/06/22 19:51 20:00 20:14 Temperature 36.7 C Heart Rate 95 93 93 Heart Rate [ Radial] Respiratory 17 15 16 Rate Blood Pressure 118/55 L 133/49 H 113/42 L Blood Pressure [Right Radial artery] O2 Saturation 97 99 99 Oxygen O2 Source Room air - Labs Labs: Laboratory Tests 10/06/22 10/06/22 10/06/22 10:25 17:41 17:41 WBC 12.4 H RBC 2.36 L Hgb 8.3 L Hct 24.9 L MCV 105.5 H MCH 35.2 H MCHC 33.3 RDW 15.9 H Plt Count 58 L MPV 9.9 Neut # (Auto) 9.8 H Lymph # (Auto) 1.3 L [place] # (Auto) 0.9 Eos # (Auto) 0.2 Baso # (Auto) 0.0 Absolute Nucleated RBC 0.00 Nucleated RBC % 0.0 Sodium Potassium Chloride Carbon Dioxide Anion Gap BUN Creatinine Estimated GFR (MDRD) Glucose Calcium Total Bilirubin AST ALT Alkaline Phosphatase B-Natriuretic Peptide 51 Total Protein Albumin Globulin Albumin/Globulin Ratio Lipase Blood Type Blood Type Recheck A NEGATIVE Antibody Screen Crossmatch IS Only 10/06/22 10/06/22 18:22 18:22 WBC RBC Hgb Hct MCV MCH MCHC RDW Plt Count MPV Neut # (Auto) Lymph # (Auto) [place] # (Auto) Eos # (Auto) Baso # (Auto) Absolute Nucleated RBC Nucleated RBC % Sodium 130 L Potassium 4.3 Chloride 99 L Carbon Dioxide 23 Anion Gap 8.0 BUN 63 H Creatinine 3.3 H Estimated GFR (MDRD) 19 L Glucose 191 H Calcium 8.4 L Total Bilirubin 5.3 H AST 41 ALT 28 Alkaline Phosphatase 169 H B-Natriuretic Peptide Total Protein 6.2 L Albumin 1.7 L Globulin 4.5 H Albumin/Globulin Ratio 0.4 L Lipase 71 H Blood Type A NEGATIVE Blood Type Recheck Antibody Screen NEGATIVE Crossmatch IS Only See Detail
--- NOTE | 2022-10-06 20:33 | ED Physician Documentation ---
ED Addendum - Addendum Addendum: 10/06/22 20:28 Patient endorsed to me by Dr. Man to dc pending blood transfusion. He was sent in due to some jaylan and worsening anemia (cre 3.5, up from baseline 2.5. hb 7.1, down from baseline 8-9). His repeat labwork is improved with cre 3.3 and hb 8.3. Given he has had some chronic weakness that has been worsening of late, we will go ahead and proceed with transfusion in addition to the fluids he has already received with Dr. Man. We have no beds available and so shared decision was made with the patient to dc home with strict return precautions. Plan to f/u with pcp to monitor his kidney function and hb levels. Disposition home Condition stable Impression 1. jaylan 2. anemia 3. liver cirrhosis 10/06/22 22:54
[2022-10-07 00:02] LABS: BASOPHILS % (AUTO) 0.3 %; EOSINOPHILS # (AUTO) 0.2 10^3/uL (0.0-0.7); EOSINOPHILS % (AUTO) 1.5 %; HCT - HEMATOCRIT 22.7 % (42.0-52.0); HGB - HEMOGLOBIN 7.5 g/dL (14.0-18.0); LYMPHOCYTES # (AUTO) 1.3 10^3/uL (1.5-3.5); LYMPHOCYTES % (AUTO) 12.3 %; MEAN CORPUSCULAR HEMOGLOBIN 34.1 pg (27.0-31.0); MEAN CORPUSCULAR VOLUME 103.2 fL (80.0-94.0); MEAN PLATELET VOLUME 9.5 fL (7.4-11.4); MONOCYTES # (AUTO) 0.7 10^3/uL (0.0-1.0); MONOCYTES % (AUTO) 6.7 %; NEUTROPHILS # (AUTO) 7.9 10^3/uL (1.5-6.6); NEUTROPHILS % (AUTO) 78.4 %; PLT - PLATELET COUNT 42 10^3/uL (130-450); RED CELL DISTRIBUTION WIDTH 18.5 % (12.0-15.0); WHITE BLOOD COUNT 10.1 x10^3/uL (4.8-10.8)
[2022-10-07 00:10] LABS: CREATININE 3.2 mg/dL (0.6-1.2); POTASSIUM 4.4 mmol/L (3.5-5.0)
[2022-10-07 00:13] VITALS: BP 115/56
== END 2022-10-07 00:17 | disposition home or self-care (01) ==
LOC: EDUNIT# → ED 17:25
DX: D64.9 Anemia, unspecified (principal); N17.9 Acute kidney failure, unspecified; K74.60 Unspecified cirrhosis of liver; N18.32 Chronic kidney disease, stage 3b; K76.7 Hepatorenal syndrome
CPT/HCPCS: 36415; 71045; 80048; 80053; 83690; 83735; 83880; 85025; 85610; 86850; 86900; 86901; 86920; 96360; 96361; 99284; P9016

== ENCOUNTER 2022-10-23 11:29 | Outpatient (CLI) | payer BC, MEDICARE | END 2022-10-23 11:30 | disposition critical access hospital (66) | LOC: EMS 11:29 | DX: R53.1 Weakness (principal); R40.0 Somnolence; R06.89 Other abnormalities of breathing | CPT/HCPCS: A0425; A0427 ==

== ENCOUNTER 2022-10-23 11:57 | Inpatient (IN) | payer BC, MEDICARE ==
--- NOTE | 2022-10-23 12:17 | ED Physician Documentation ---
PD HPI ALTERED MENTAL STATUS - Stated complaint Stated Complaint: DEC LOC - Chief complaint Chief Complaint: Neuro - History obtained from History obtained from: Family, EMS - History of Present Illness Timing - onset: How many days ago (3) Timing - duration: Days (3) Timing - details: Gradual onset, Still present, Waxing and waning Quality / character: Less responsive, Confused Associated symptoms: General weakness. No: Fever Contributing factors: Other (hx of NAFLD) Basline status: Alert and oriented X 3, Ambulatory Similar symptoms before: Diagnosis (dehydration, encephalopathy) Recently seen: Emergency Dept - Additional information Additional information: 71-year-old Leonid Duff has a history of Mazariegos and cirrhosis. He has a high MELD score (36) and has increased symptomatology over the past year. Last year he was told he had hepatorenal syndrome and would have weeks to live. He was able to go home he was hydrated and improved. The patient does have a history of morbid obesity he has been cared for by a manager creative services at the [facility] Dr. Davis and financial processing clerk also at the [facility]. Director Information Security has recommended administration of TPN as a potential therapy. His manager creative services is concerned about the risks involved with this and uncertain of the benefit. Today the patient presents to the emergency department with altered level of consciousness. His indicates that he has had diarrhea for the past 10 days. He has previously had a problem with constipation. He has a markedly decreased level of consciousness today. He is brought to the hospital by ambulance. The patient has considered his POLST form and recently has signed his POLST form to a DO NOT RESUSCITATE and limited additional interventions. Review of Systems Unable to obtain: AMS GI: reports: Diarrhea PD PAST MEDICAL HISTORY - Past Medical History Cardiovascular: Other Respiratory: Shortness of breath Endocrine/Autoimmune: Other GI: Other : Chronic bladder infection HEENT: None Psych: None Musculoskeletal: Other Derm: None, Other - Present Medications Home Medications: Ambulatory Orders Medication Instructions Recorded Confirmed Baclofen [Lioresal] 10 mg PO TID 02/09/22 02/09/22 Hydrocodone/Acetaminophen 1 tab PO Q4H PRN MDD 6 02/09/22 02/09/22 [Hydrocodone-Acetamin 10-325 mg] Lactulose 30 ml PO DAILY 02/09/22 02/09/22 Ondansetron Odt [Zofran Odt] 4 mg TL Q6H PRN 02/09/22 02/09/22 Tamsulosin [Flomax] 0.4 mg PO DAILY 02/09/22 02/09/22 Lactobacillus Acidophilus 1 each PO DAILY #10 cap 02/13/22 [Acidophilus Probiotic] Midodrine [ProAmatine] 5 mg PO TIDWM tablet 02/13/22 Vit No.180/Iron/Folic 1 each PO DAILY #30 tablet 02/13/22 [ Plus Tablet] Spironolactone [Aldactone] 300 mg PO Q48H #0 02/13/22 02/09/22 Torsemide 60 mg PO Q48H #0 02/13/22 02/09/22 cephALEXin [Keflex] 500 mg PO QID #40 cap 02/13/22 Benzocaine/Menthol/Zinc Chlor 1 appful ORAL BID PRN #5.1 gm 10/06/22 [Orajel 3X Mouth Sores Gel] - Allergies Allergies/Adverse Reactions: Allergies Allergy/AdvReac Type Severity Reaction Status Date / Time Iodinated Contrast Media Allergy Unknown Verified 10/23/22 16:47 Penicillins Allergy Hives Verified 10/23/22 12:04 - Social History Smoking Status: Never smoker Does the pt have substance abuse?: No - POLST Patient has POLST: No POLST Status: Full Code PD ED PE NORMAL - Vitals Vital signs reviewed: Yes (hypertensive) - General General: Well developed/nourished, Other (eyes closed, breathing, not answering, occassional moaning. ) - HEENT HEENT: Atraumatic, PERRL, EOMI - Neck Neck: Supple, no meningeal sign, No bony TTP - Cardiac Cardiac: RRR, No murmur - Respiratory Respiratory: No respiratory distress, Clear bilaterally - Abdomen Abdomen: Soft, Other (obese non-tender. Today edema previously seen in the skin of the anterior abdomen is not present. ) - Derm Derm: Normal color, Warm and dry - Extremities Extremities: No deformity, Other (There is postinflammatory hyperpigmentation of both lower extremities there is no significant edema today and the skin is dry.) - Neuro Neuro: No motor deficit, No sensory deficit Eye Opening: To Pain Motor: Withdraws to Pain Verbal: Incomprehensible GCS Score: 8 Results - Vitals Vitals: Vital Signs - 24 hr 05/20/23 05/20/23 05/20/23 11:58 12:03 12:30 Temperature 35.3 C L Heart Rate 84 84 83 Respiratory 23 22 20 Rate Blood Pressure 151/117 H 169/105 H 124/52 L O2 Saturation 99 98 97 10/23/22 10/23/22 10/23/22 13:00 13:15 13:30 Temperature Heart Rate 84 80 82 Respiratory 18 21 20 Rate Blood Pressure 138/50 H 116/58 L 122/88 H O2 Saturation 99 99 99 10/23/22 10/23/22 10/23/22 13:45 14:00 14:15 Temperature Heart Rate 83 83 82 Respiratory 20 20 20 Rate Blood Pressure 117/70 136/73 H 126/75 O2 Saturation 100 100 99 10/23/22 10/23/22 10/23/22 14:47 15:00 15:15 Temperature Heart Rate 82 83 80 Respiratory 19 18 15 Rate Blood Pressure 110/55 L 100/54 L 114/46 L O2 Saturation 99 99 100 10/23/22 10/23/22 10/23/22 15:30 15:45 16:00 Temperature Heart Rate 80 71 78 Respiratory 18 16 12 Rate Blood Pressure 134/40 H 145/65 H 158/60 H O2 Saturation 99 99 100 10/23/22 10/23/22 16:15 16:30 Temperature Heart Rate 81 78 Respiratory 14 12 Rate Blood Pressure 160/74 H 161/79 H O2 Saturation 100 100 Oxygen O2 Source Room air - Labs Labs: Laboratory Tests 10/23/22 10/23/22 10/23/22 13:38 13:38 13:38 WBC 21.1 H RBC 2.37 L Hgb 8.4 L Hct 26.8 L MCV 113.1 H MCH 35.4 H MCHC 31.3 L RDW 17.9 H Plt Count 112 L MPV 9.7 Neut # (Auto) Not Reportable Lymph # (Auto) Not Reportable [place] # (Auto) Not Reportable Eos # (Auto) Not Reportable Baso # (Auto) Not Reportable Absolute Nucleated RBC Not Reportable Total Counted 100 Band Neuts % (Manual) 6 Abnorm Lymph % (Manual) 0 Nucleated RBC % Not Reportable Neutrophils # (Manual) 19.2 H Lymphocytes # (Manual) 1.7 Monocytes # (Manual) 0.2 Eosinophils # (Manual) 0.0 Basophils # (Manual) 0.0 Differential Comment MANUAL DIFFERENTIAL Manual Slide Review Indicated WBC Morphology 1+ TOXIC GRANULATION Platelet Estimate DECREASED (<130,000) Platelet Morphology NORMAL APPEARANCE RBC Morph Micro Appear 1+ SCHISTOCYTES PT INR APTT Sodium 132 L Potassium 6.5 H* Chloride 99 L Carbon Dioxide 20 L Anion Gap 13.0 BUN 56 H Creatinine 3.7 H Estimated GFR (MDRD) 16 L Glucose 142 H Calcium 8.5 Total Bilirubin 5.6 H AST 91 H ALT 44 Alkaline Phosphatase 158 H Ammonia 153.5 H* Total Protein 6.9 Albumin 1.8 L Globulin 5.1 H Albumin/Globulin Ratio 0.4 L Lipase 62 H 10/23/22 10/23/22 13:38 15:38 WBC RBC Hgb Hct MCV MCH MCHC RDW Plt Count MPV Neut # (Auto) Lymph # (Auto) [place] # (Auto) Eos # (Auto) Baso # (Auto) Absolute Nucleated RBC Total Counted Band Neuts % (Manual) Abnorm Lymph % (Manual) Nucleated RBC % Neutrophils # (Manual) Lymphocytes # (Manual) Monocytes # (Manual) Eosinophils # (Manual) Basophils # (Manual) Differential Comment Manual Slide Review WBC Morphology Platelet Estimate Platelet Morphology RBC Morph Micro Appear PT 24.5 H INR 2.3 H APTT 41.1 H Sodium 131 L Potassium 6.3 H* Chloride 96 L Carbon Dioxide 20 L Anion Gap 15.0 H BUN 59 H Creatinine 3.8 H Estimated GFR (MDRD) 16 L Glucose 138 H Calcium 8.3 L Total Bilirubin AST ALT Alkaline Phosphatase Ammonia Total Protein Albumin Globulin Albumin/Globulin Ratio Lipase - Rads (name of study) CT head Relevant Findings:: Prelim report reviewed (Impression: Limited examination demonstrated no acute process. ), EMP independent interpretation of test PD Medical Decision Making - ED course Complexity details: reviewed old records, reviewed results, re-evaluated patient, considered differential, d/w family Reviewed Lab Results: We ordered and apurva a complete blood count demonstrating the markedly elevated white blood cell count of 21.1, elevated from a normal level 17 days ago of 10.1. Hemoglobin and hematocrit were low at 8.4 and 26.8 both values elevated from prior pretransfusion levels with the pretransfusion hematocrit being 21.2. The patient's coagulation times are off significantly is INR is now 2.3 up from 2.1 2 weeks ago. Patient has multiple electrolyte abnormalities including a se rum sodium low at 132 a potassium elevated at 6.5 chloride low at 99 and a bicarb low at 20. These numbers are similar to prior with the exception of the potassium which has not been elevated previously.Patient's kidney function was tested showing a BUN of 56 and a creatinine of 3.7. The creatinine of 3.7 is the highest the patient has demonstrated.Patient's total bilirubin is elevated at 5.6 increased from his prior level of 5.32 weeks ago and less than his all- time high of 10.1 in February 2022. His albumin of 1.8 is low and this is undulated around this range. His ammonia level is recorded at 153.5 and we do not have a recent level to compare. His previous high was in February 2022 and was 44. The other values we have are normal. My interpretation of these laboratory results are the patient appears to be holding his own for hemoglobin and hematocrit he appears to have a elevated potassium likely secondary to his level of dehydration and renal failure. His renal failure is slightly worse than normal his albumin has undulated and is higher now than 3 weeks ago. His ammonia level however is a record and likely the main cause of why the patient's level of consciousness is altered. ED course: 71-year-old male with a history of end-stage liver disease presents to the emergency department with altered level of consciousness and is found to have a markedly elevated serum ammonia level. He had developed diarrhea had stopped taking his lactulose for 1 week. He has become significantly dehydrated as well. Here in the emergency department he is hydrated with saline and his potassium is rechecked. Potassium only minimally improved. I have discussed with the patient's the need to instill lactulose for palliative care. She is accepting of this and the patient is admitted under the care of Dr. Cervantes. In the ED lactulose is instilled rectally. (the patient has nasal polyps and deviated septum making NG less attractive). Departure - Departure Disposition: 66 [facility] DC/Xfer Clinical Impression: Cirrhosis, non-alcoholic, Acute hepatic encephalopathy, Hyperkalemia Chronic renal failure Qualifiers: Chronic kidney disease stage: stage 4 (severe) Qualified Code(s): N18.4 - Chronic kidney disease, stage 4 (severe)
--- NOTE | 2022-10-23 12:51 | XRAY Report ---
PROCEDURE: Chest 1 View X-Ray INDICATIONS: chest pain TECHNIQUE: One view of the chest was acquired. COMPARISON: 10/06/2022 FINDINGS: Surgical changes and devices: None. Lungs and pleura: No pleural effusions or pneumothorax. Lungs are clear. Mediastinum: Mediastinal contours appear normal. Heart size is normal. Bones and chest wall: No suspicious bony lesions. Overlying soft tissues appear unremarkable. IMPRESSION: No acute process. Reviewed by: Sahil Grande MD on 10/23/2022 11:50 AM WENDY Approved by: Sahil Grande MD on 10/23/2022 11:50 AM WENDY Station ID: [id number]
--- NOTE | 2022-10-23 13:08 | CT Report ---
PROCEDURE: HEAD WO INDICATIONS: altered LOC TECHNIQUE: Noncontrast 4.5 mm thick angled axial sections acquired from the foramen magnum to the vertex. For r adiation dose reduction, the following was used: automated exposure control, adjustment of mA and/or kV according to patient size. COMPARISON: None. FINDINGS: Image quality: Degraded by motion artifact. CSF spaces: Basal cisterns are patent. No extra-axial fluid collections. Ventricles are normal in size and shape. Brain: No midline shift. No intracranial masses or hemorrhage. Ward-white matter interface is norm al. Skull and face: Calvarium and visualized facial bones are intact, without suspicious lesions. Sinuses: Visualized sinuses and mastoids are clear. IMPRESSION: Limited examination demonstrating no acute process. Reviewed by: Sahil Grande MD on 10/23/2022 12:07 PM WENDY Approved by: Sahil Grande MD on 10/23/2022 12:07 PM WENDY Station ID: [id number]
[2022-10-23 13:44] LABS: BASOPHILS % (AUTO) 0.3 %; EOSINOPHILS % (AUTO) 0.1 %; HCT - HEMATOCRIT 26.8 % (42.0-52.0); HGB - HEMOGLOBIN 8.4 g/dL (14.0-18.0); LYMPHOCYTES % (AUTO) 5.8 %; MEAN CORPUSCULAR HEMOGLOBIN 35.4 pg (27.0-31.0); MEAN CORPUSCULAR HGB CONC 31.3 g/dL (32.0-36.0); MEAN CORPUSCULAR VOLUME 113.1 fL (80.0-94.0); MEAN PLATELET VOLUME 9.7 fL (7.4-11.4); PLT - PLATELET COUNT 112 10^3/uL (130-450); RED BLOOD COUNT 2.37 10^6/uL (4.70-6.10); RED CELL DISTRIBUTION WIDTH 17.9 % (12.0-15.0); WHITE BLOOD COUNT 21.1 x10^3/uL (4.8-10.8)
[2022-10-23 13:48] LABS: SLIDE REVIEW? Indicated
[2022-10-23 13:50] LABS: ABNORMAL LYMPHS % (MANUAL) 0 %
[2022-10-23 13:51] LABS: INR 2.3 (0.8-1.2); PT - PROTHROMBIN TIME 24.5 secs (9.9-12.6)
[2022-10-23 14:03] LABS: BAND NEUTROPHILS % (MANUAL) 6 %; LYMPHOCYTES # (MANUAL) 1.7 10^3/uL (1.5-3.5); LYMPHOCYTES % (MANUAL) 8 %; MONOCYTES # (MANUAL) 0.2 10^3/uL (0.0-1.0); NEUTROPHILS # (MANUAL) 19.2 10^3/uL (1.5-6.6)
[2022-10-23 14:07] LABS: PARTIAL THROMBOPLASTIN TIME 41.1 secs (24.9-33.3)
[2022-10-23 14:09] LABS: PLATELET ESTIMATE, MANUAL DECREASED (<130,000) (NORMAL); PLATELET MORPHOLOGY NORMAL APPEARANCE (NORMAL); WBC MORPHOLOGY (MULTIPLE) 1+ TOXIC GRANULATION (NORMAL)
[2022-10-23 14:10] LABS: DIFFERENTIAL COMMENT MANUAL DIFFERENTIAL
[2022-10-23 14:19] LABS: ALBUMIN 1.8 g/dL (3.2-5.5); ALBUMIN/GLOBULIN RATIO 0.4 (1.0-2.2); BILIRUBIN,TOTAL 5.6 mg/dL (0.2-1.0); CALCIUM 8.5 mg/dL (8.5-10.3); CREATININE 3.7 mg/dL (0.6-1.2); TOTAL PROTEIN 6.9 g/dL (6.7-8.2)
[2022-10-23 14:22] LABS: POTASSIUM 6.5 mmol/L (3.5-5.0)
[2022-10-23] MEDS ORDERED: LACTULOSE 10 GM /15 ML UDC NG STA (15:22)
[2022-10-23] MEDS ORDERED: LACTULOSE 10 GM /15 ML UDC PR STA (15:49)
[2022-10-23 15:57] LABS: CALCIUM 8.3 mg/dL (8.5-10.3); CREATININE 3.8 mg/dL (0.6-1.2)
[2022-10-23 16:00] LABS: POTASSIUM 6.3 mmol/L (3.5-5.0)
[2022-10-23] MEDS ORDERED: SODIUM CHLORIDE FLUSH 0.9% 10 ML SYRINGE IVP PRN (16:44)
[2022-10-23] MEDS ORDERED: ONDANSETRON 4 MG/2 ML VIAL IVP PRN (16:44)
[2022-10-23] MEDS ORDERED: SODIUM ZIRCONIUM CYCLOSILICATE 5 GM PACKET PO STA (16:46)
[2022-10-23] MEDS ORDERED: INSULIN REGULAR HUMAN 300 UNIT/3 ML VIAL IVP STA (16:48)
[2022-10-23] MEDS ORDERED: DEXTROSE 50% ABBOJECT 25 GM/50 ML SYRINGE IVP STA (16:48)
[2022-10-23] MEDS ORDERED: DEXTROSE 5%-0.9% NACL 1,000 ML IV SCH (17:00)
[2022-10-23] MEDS ORDERED: SODIUM CHLORIDE 0.9% 1,000 ML IV SCH (17:00)
[2022-10-23] MEDS ORDERED: LIDOCAINE 2% URO-JET 5 ML SYRINGE UR STA (17:09)
[2022-10-23] MEDS: SODIUM CHLORIDE FLUSH 0.9% 10 ML SYRINGE IVP SCH (18:13)
--- NOTE | 2022-10-23 18:37 | HISTORY & PHYSICAL EXAMINATION ---
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 He is followed by Dr. Davis. The patient was last here 6 months ago with sepsis from cellulitis. He has described that he already outlived the prognosis given to him for his HALLMAN and cirrhosis therefore he does not want to yet go to hospice. Just several days ago (10/15/22) he signed a new POLST form while he was on a telehealth visit with his PCP Dr. Davis, however there was no doctor that countersigned it. The POLST form indicates he now wa nts to be a DNR and wants selective treatment. said that the POLST form was faxed to Dr. Davis and he is to send it back to her email with his signature to finalize it. She has not received that signed form from Dr Davis yet. Ten days ago the patient developed watery brown diarrhea and stopped using his prescribed Lactulose. says he tried taking Pepto-Bismol and Imodium to decrease the diarrhea. He was still able to eat small meals and drink liquids, which he did every 3 hours. With the ongoing diarrhea, he became weaker over the 10 days. Today he got up from bed to his bedside commode, which is 2 feet away, but then could not lift himself up off the commode to get back into bed, and he tried for 2 hours. Since getting up and onto the commode he became more somnolent today. Over those 2 hours the convinced him to have an ambulance come, and she called 911. Paramedics recommended that he be brought to the ER and he did not refuse. Lab work in the ED today showed that he has a creatinine of 3.7 (his baseline creatinine is 2.6). Potassium 6.5 which decreased to 6.3 with IV saline. Lokelma orally was also ordered but he cannot swallow because he is too somnolent, so it was not given. He has an ammonia level of 153 (his baseline ammonia level is between 25 and 44). He was given Lactulose per rectum. His vital signs are all stable in the ED. The ED provider spoke to me on the Hospitalist team to have this patient admitted. CODE STATUS is now DNR, this was reviewed with and confirmed. History - Past Medical History Cardiovascular: reports: Other Respiratory: reports: Shortness of breath Endocrine/Autoimmune: reports: Other GI: reports: Other : reports: Chronic bladder infection HEENT: reports: None Psych: reports: None Musculoskeletal: reports: Other Derm: reports: None, Other - Family & Social History Family History Comment/Other: Dad at approximately 69 of heart disease. Mom at approximately age 70 of pancreatic cancer. 1 sister is healthy. No children Living Situation: With family Social History Notes: He never had a problem with alcohol abuse. Was a non-smoker. Originally from [facility]. Spent many years in [place] and senior care but it grew too hot so he moved to [facility] 25 years ago. 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 - Substance History Use: Uses substance without health or social issues: NONE - POLST Patient has POLST: No POLST Status: Full Code Meds/Allgy - Home Medications Home Medications: Ambulatory Orders Medication Instructions Recorded Confirmed Baclofen [Lioresal] 10 mg PO TID 02/09/22 02/09/22 Hydrocodone/Acetaminophen 1 tab PO Q4H PRN MDD 6 02/09/22 02/09/22 [Hydrocodone-Acetamin 10-325 mg] Lactulose 30 ml PO DAILY 02/09/22 02/09/22 Ondansetron Odt [Zofran Odt] 4 mg TL Q6H PRN 02/09/22 02/09/22 Tamsulosin [Flomax] 0.4 mg PO DAILY 02/09/22 02/09/22 Spironolactone [Aldactone] 300 mg PO Q48H #0 02/13/22 02/09/22 Torsemide 60 mg PO Q48H #0 02/13/22 02/09/22 - Allergies Allergies/Adverse Reactions: Allergies Allergy/AdvReac Type Severity Reaction Status Date / Time Iodinated Contrast Media Allergy Unknown Verified 10/23/22 16:47 Penicillins Allergy Hives Verified 10/23/22 12:04 Exam - Vital Signs Vital Signs: Vital Signs x48h Temp Pulse Resp BP Pulse Ox 10/23/22 16:30 78 12 161/79 H 100 10/23/22 16:15 81 14 160/74 H 100 10/23/22 16:00 78 12 158/60 H 100 10/23/22 15:45 71 16 145/65 H 99 10/23/22 15:30 80 18 134/40 H 99 10/23/22 15:15 80 15 114/46 L 100 10/23/22 15:00 83 18 100/54 L 99 10/23/22 14:47 82 19 110/55 L 99 10/23/22 14:15 82 20 126/75 99 10/23/22 14:00 83 20 136/73 H 100 10/23/22 13:45 83 20 117/70 100 10/23/22 13:30 82 20 122/88 H 99 10/23/22 13:15 80 21 116/58 L 99 10/23/22 13:00 84 18 138/50 H 99 10/23/22 12:30 83 20 124/52 L 97 10/23/22 12:03 84 22 169/105 H 98 10/23/22 11:58 35.3 C L 84 23 151/117 H 99 - Physical Exam General Appearance: positive: Mild distress (He is mostly asleep but when he awakens he groans, picks at his bed sheets, tries to lift his head off the pillow), Other (Obese male, asleep.) Eyes Bilateral: positive: Other (Icteric) ENT: positive: Dry mucous membranes Neck: positive: Nml inspection Respiratory: positive: No respiratory distress Cardiovascular: positive: Regular rate & rhythm Abdomen: positive: Non-tender, Other (Obese and distended, nontender. Probable fluid with) Skin: positive: Warm, Dry, Other (Icteric) Extremities: positive: Other (4+ edema of legs) Neurologic/Psychiatric: positive: Other (Lethargic, awakens to touch and to name, opens eyes briefly, tries to lift his head off the pillow but is confused, groans, picks at his bed sheets and has a hand tremor.) Conclusion/Plan - Problem List (1) Acute hepatic encephalopathy Conclusion/Plan: Head CT showed no acute process. His encephalopathy is very likely caused by the extremely high ammonia level from his liver failure Plan: We will order lactulose to be given per rectum, 3 times daily, even if there is diarrhea from a different cause. We will give IV fluids Avoid hepatotoxins Follow CMP and Ammonia level daily This patient's prognosis is poor. I updated the at bedside regarding his condition and the plan. Since the POLST form is not signed by an MD it is not legal therefore I have signed a POLST form indicating he was DNR and selective treatment and the will be signing it and we will honor the DNR request. (2) Acute on chronic renal failure Conclusion/Plan: MThis is probably from volume depletion caused by the diarrhea. It appears he may have already had hepatorenal syndrome before this, his creatinine usually runs 2.6 Plan: Start IV fluids, hold Spironolactone and loop diuretic for several days Avoid nephrotoxins Follow BMP daily (3) Hyperkalemia Conclusion/Plan: Suspect this is from his renal failure Plan: We will give D50 and insulin, F/U serum K in several hours and correct again if needed Will start IV fluids that contain D5 Avoid potassium-retaining meds (4) Leukocytosis Conclusion/Plan: Etiology is not immediately obvious. He may have an infection, but because of the dehydration it is not obvious. Chest x-ray was unremarkable. His diarrhea may be infectious and is the mostly likely cause of leukocytosis Plan: We will place a Lowry catheter. Will obtain a catheterized urinalysis with culture if indicated We will consider obtaining abdomen pelvis CT if not already done in the ER Obtain blood cx x2 now Because of liver failure and risk of SBP, will start empiric IV antibiotics to cover SBP. Since he has a severe penicillin allergy (hives), will start cefepime and metronidazole Follow CBC daily (5) Diarrhea Conclusion/Plan: This diarrhea continued despite having had no lactulose for 10 days. It is very suspicious to therefore be an infectious diarrhea Plan: We will check stool for C. difficile We will order bacterial cultures of the stool Will order infectious isolation until stool results are back We will give IV fluids since he has volume depletion and electrolyte abnormalities caused by fluid losses from this diarrhea (6) HALLMAN (nonalcoholic steatohepatitis) Conclusion/Plan: This patient has a very high MELD score, and he was already told 1 year ago that he only had several weeks to live. He signed out of Hospice and has not wanted help from Hospice going forward. The is interested in him being followed by Palliative Care, which has been ordered about a week ago she said, but he has not seen SLOOP CAPTAIN Tonya Velez yet. Plan: We will continue with supportive care as described above Will order Palliative Care consult for Mon (today is Sat). I confirmed with that he is a DNR. I have provided the with a POLST form, signed by me, that would be scanned into his EMR, after she signs it. - Lab Results Fish Bones: 10/23/22 13:38 10/23/22 20:04 - Diagnostic Imaging Results Diagnostic Imaging Results: positive: Final report reviewed - Other Other Results/Comments: Attestation: The patient is expected to be hospitalized greater than 2 m idnights, and is expected to be discharged or transferred to another facility within 96 hours: Yes.
[2022-10-23] MEDS: CEFEPIME 2 GM in SODIUM CHLORIDE 0.9% MINIBAG 100 ML IV SCH (20:21)
[2022-10-23] MEDS ORDERED: LACTULOSE 10 GM /15 ML UDC PR SCH (22:00)
[2022-10-23] MEDS ORDERED: metroNIDAZOLE 500 MG/100 ML 500 MG/100 ML BAG IV SCH (22:00)
[2022-10-23] MEDS: LACTULOSE 10 GM /15 ML UDC PO SCH (23:00)
[2022-10-24] MEDS: CEFEPIME 2 GM in SODIUM CHLORIDE 0.9% MINIBAG 100 ML IV SCH ×3 (03:45→19:44)
[2022-10-24] MEDS: SODIUM CHLORIDE FLUSH 0.9% 10 ML SYRINGE IVP SCH ×3 (03:45→16:23)
[2022-10-24 05:10] LABS: BASOPHILS % (AUTO) 0.2 %; EOSINOPHILS # (AUTO) 0.1 10^3/uL (0.0-0.7); EOSINOPHILS % (AUTO) 0.3 %; HCT - HEMATOCRIT 22.9 % (42.0-52.0); HGB - HEMOGLOBIN 7.4 g/dL (14.0-18.0); LYMPHOCYTES # (AUTO) 1.9 10^3/uL (1.5-3.5); LYMPHOCYTES % (AUTO) 11.5 %; MEAN CORPUSCULAR HEMOGLOBIN 35.7 pg (27.0-31.0); MEAN CORPUSCULAR HGB CONC 32.3 g/dL (32.0-36.0); MEAN CORPUSCULAR VOLUME 110.6 fL (80.0-94.0); MEAN PLATELET VOLUME 10.2 fL (7.4-11.4); MONOCYTES # (AUTO) 1.2 10^3/uL (0.0-1.0); MONOCYTES % (AUTO) 7.1 %; NEUTROPHILS % (AUTO) 80.4 %; PLT - PLATELET COUNT 85 10^3/uL (130-450); RED BLOOD COUNT 2.07 10^6/uL (4.70-6.10); RED CELL DISTRIBUTION WIDTH 18.1 % (12.0-15.0); WHITE BLOOD COUNT 16.2 x10^3/uL (4.8-10.8)
[2022-10-24 05:14] LABS: PLATELET ESTIMATE, MANUAL DECREASED (<130,000) (NORMAL); PLATELET MORPHOLOGY NORMAL APPEARANCE (NORMAL); SLIDE REVIEW? Indicated; WBC MORPHOLOGY (MULTIPLE) NORMAL APPEARANCE (NORMAL)
[2022-10-24 05:24] LABS: ALBUMIN 1.6 g/dL (3.2-5.5); ALBUMIN/GLOBULIN RATIO 0.4 (1.0-2.2); BILIRUBIN,TOTAL 5.8 mg/dL (0.2-1.0); CALCIUM 7.7 mg/dL (8.5-10.3); MAGNESIUM 3.8 mg/dL (1.7-2.8)
[2022-10-24 05:28] LABS: POTASSIUM 6.3 mmol/L (3.5-5.0)
[2022-10-24] MEDS: ZINC OXIDE 20% OINT 30 GM TUBE TOP PRN (05:42)
[2022-10-24] MEDS: LACTULOSE 10 GM /15 ML UDC PO SCH ×3 (05:44→21:58)
[2022-10-24 05:56] LABS: GLUCOSE, URINE (UA) NEGATIVE (NEGATIVE); KETONES,URINE (UA) TRACE mg/dL (NEGATIVE); LEUKOCYTE ESTERASE, URINE NEGATIVE (NEGATIVE); NITRITE,URINE NEGATIVE (NEGATIVE); OCCULT BLOOD,URINE NEGATIVE (NEGATIVE); PROTEIN,URINE TRACE mg/dL (NEGATIVE); UROBILINOGEN,URINE 0.2 (NORMAL) E.U./dL (NORMAL)
[2022-10-24 06:08] LABS: BACTERIA,URINE Few /HPF (None Seen); BILIRUBIN,URINE NEGATIVE (NEGATIVE); CASTS, URINE 3-5 Hyaline Casts /LPF; CLARITY,URINE CLEAR (CLEAR); ICTOTEST,URINE NEGATIVE; MUCUS,URINE Few Strands; RBC,URINE 0-5 /HPF (0-5); SQUAMOUS EPITHELIAL CELL,UR FEW Squamous (<= Few); WBC,URINE 0-3 /HPF (0-3)
[2022-10-24] MEDS ORDERED: SODIUM ZIRCONIUM CYCLOSILICATE 5 GM PACKET PO ONE (07:00)
[2022-10-24] MEDS: metroNIDAZOLE 500 MG/100 ML 500 MG/100 ML BAG IV SCH ×2 (08:24→16:22)
--- NOTE | 2022-10-24 08:27 | PROVIDER PROGRESS NOTE ---
Assessment/Plan - Problem List (1) Acute hepatic encephalopathy Assessment/Plan: Head CT showed no acute process. His encephalopathy is very likely caused by the extremely high ammonia level from his liver failure. I ordered him to get Lactulose TID per rectum, since he was obtunded and could not take p.o. meds. Also IV fluids were started All labs were reviewed. His Ammonia level has dropped from 145 yesterday down to [address] Mitchel Davis phoned today and we discussed his current status [phone]. Dr Davis thinks he is end-stage Plan: We will change the Lactulose order from per rectum to p.o. Avoid hepatotoxins Follow CMP and Ammonia level daily This patient's prognosis is very poor, yet he has wanted to be a Full Code. The brought in a new POLST form, which was discussed with his PCP Dr. Davis on 10/15 via telehealth appt, per the . Since the POLST form is not signed by an MD it is not legal. Therefore I have signed a POLST form, indicating the same DNR and selective treatment, and the will be signing it and we will honor the DNR request, and scan the completed POLST into his EMR. Neither he nor the want any association with Hospice since they had some type of bad experience with it in the past. The does reiterate that they want a Palliative Care referral. Will order palliative care consult (2) C. difficile diarrhea Assessment/Plan: His diarrhea continued at home for 10 days, despite taking in no Lactulose for those 10 days. It was very suspicious to therefore be an infectious diarrhea. Wr checked stool for C. difficile and the result is C. diff (+) Plan: We will start the patient on Vanco 125 mg p.o. 4 times daily. He is awake and alert and can swallow today (since his Ammonia level has decreased) Continue infectious isolation, already ordered Continue IV fluids since he still has NADIYA and electrolyte abnormalities caused by fluid losses from this diarrhea Await bacterial cultures of the stool, which was also ordered Since the refused him to get a Lowry catheter yesterday, I will order a condom catheter to be placed. I am still awaiting a urinalysis Today I updated the at bedside regarding the patient's status (3) Unequal blood pressure in upper extremities Assessment/Plan: RN manually checked his blood pressures today: Left 100/45, right 88/36. Plan: Given his severe end-stage liver disease, no aggressive work-up for peripheral vascular disease will be started (4) Acute on chronic renal failure Conclusion/Plan: This was likely from volume depletion caused by the diarrhea. It appears he already had hepatorenal syndrome before this, an his creatinine usually runs 2.6. All labs were reviewed. His creatinine has risen from 3.7 yesterday to 4.0 today Plan: I will increase IV fluid rate from 83.33 to 125 cc/hr, and continue to hold Spironolactone and Torsemide, probably for 1-2 more days Avoid nephrotoxins Follow BMP daily (5) Hyperkalemia Conclusion/Plan: This is from his renal failure. He got insulin and D50 treatment. Lokelma was ordered in the ER but he was too obtunded to take p.o. meds. All labs were reviewed. His potassium is still very elevated at 6.3 today Plan: Will order Lokelma po today (since he is awake and alert and can swallow today, with Ammonia level decreased) Will F/U serum K in several hours and correct hyperkalemia again if needed Avoid potassium-retaining meds (6) Leukocytosis Conclusion/Plan: Chest x-ray was unremarkable. Etiology is most likely the diarrhea. Stool for bacterial culture was ordered to be sent off. Blood cx x2 were sent off at admission, and then he was empirically started on iv Cefepime and iv Flagyl to cover for poss SBP. Plan: Vancomycin p.o. will be started today for his C. difficile diarrhea We will obtain abdomen pelvis CT, since it was not done when in the ER Follow CBC daily I am still awaiting a urinalysis (7) HALLMAN (nonalcoholic steatohepatitis) Conclusion/Plan: This patient has a very high MELD score, and he was already told 1 year ago that he only had several weeks to live. He signed out of Hospice and has not wanted help from Hospice going forward. The is interested in him being followed by Palliative Care, which has been ordered about a week ago she said, but he has not seen [employer] Tonya Velez yet. Plan: We will continue with supportive care as described above Will order Palliative Care consult for Mon (today is Sun). I confirmed with that he is a DNR. I have provided the with a POLST form, signed by me, that would be scanned into his EMR, after she signs it. - Current Meds Current Meds: Current Medications Generic Name Dose Route Start Last Admin Trade Name Freq PRN Reason Stop Dose Admin Cefepime HCl 2 gm/ Sodium 100 mls @ 200 mls/hr 10/23/22 19:00 10/24/22 04:15 Chloride IV Infused Q8H JULIENNE Infusion Lactulose 20 gm 10/23/22 22:00 10/24/22 05:44 Lactulose 10 Gm /15 Ml Udc PO 20 gm TID JULIENNE Administration Multi-Ingredient Ointment 1 applic 10/23/22 19:47 10/24/22 05:42 Zinc Oxide 20% Oint 30 Gm Tube TOP 1 applic PRN PRN Administration Skin Care Sodium Chloride 10 ml 10/23/22 17:00 10/24/22 03:45 Sodium Chloride Flush 0.9% 10 Ml Syringe IVP 10 ml 0100,0900,1700 JULIENNE Administration - Lab Result Fish Bone Diagrams: 10/24/22 05:04 10/24/22 05:04 - Additional Planning My Orders: My Active Orders 10/23/22 16:44 Activity Orders [RC] Q2HR IO [RC] IOSHIFT Initiate Bowel Care Protocol [RC] .protocol Initiate Line Care Protocol [RC] QSHIFT Oxygen Therapy [RC] .PRN Telemetry- [RC] Q4HR Vital Signs [RC] 0800,1600,0000 HYDROmorphone 0.5MG SYRINGE [Dilaudid 0.5MG Syringe] 0.5 mg IVP Q4H PRN Ondansetron Inj [Zofran Inj] 4 mg IVP Q6HR PRN Sodium Chloride Flush 0.9% [Normal Saline Flush 0.9%] 10 ml IVP PRN PRN Code Status [OTHERS] Routine Condition of Patient [OTHERS] Routine DVT Prophylaxis [OTHERS] Routine 10/23/22 16:45 Daily Weight [RC] 0600 10/23/22 16:46 SCDs [RC] QSHIFT 10/23/22 17:00 Sodium Chloride Flush 0.9% [Normal Saline Flush 0.9%] 10 ml IVP 0100,0900,1700 10/23/22 18:56 Infection Precautions [RC] QSHIFT 10/23/22 19:00 Cefepime 2 gm Sodium Chloride 0.9% Minibag [Normal Saline 0.9% Minibag] 100 ml IV Q8H 10/23/22 19:47 Zinc Oxide 20% Oint [Zinc Oxide] 1 applic TOP PRN PRN 10/23/22 20:04 CULTURE, BLOOD #1 [RM] Stat CULTURE, BLOOD #2 [RM] Stat 10/24/22 Breakfast Clear Liquid Diet [DIET] 10/24/22 05:05 STOOL CULTURE [REFLAB] Stat 10/24/22 08:00 metroNIDAZOLE 500 MG/100 ML [Flagyl 500 mg/100 ml] 500 mg in 100 ml IV Q8H 10/24/22 08:12 Condom cath [External Catheter Care] [RC] [facility] 10/24/22 08:13 Dextrose 5%-0.9% NaCl [D5ns] 1,000 ml IV 125 mls/hr 10/24/22 09:00 Vancomycin [Vancocin] 125 mg PO QID 10/25/22 05:00 AMMONIA [CHEM] DAILYLAB CBC - COMP BLD CT W/AUTO DIFF [HEME] DAILYLAB COMPREHENSIVE METABOLIC PANEL [CHEM] DAILYLAB 10/26/22 05:00 AMMONIA [CHEM] DAILYLAB CBC - COMP BLD CT W/AUTO DIFF [HEME] DAILYLAB COMPREHENSIVE METABOLIC PANEL [CHEM] DAILYLAB 10/27/22 05:00 AMMONIA [CHEM] DAILYLAB CBC - COMP BLD CT W/AUTO DIFF [HEME] DAILYLAB COMPREHENSIVE METABOLIC PANEL [CHEM] DAILYLAB Subjective - Subjective Patient Reports: Pain (He is more awake, able to put together 4-5 word sentences and complains mostly of pain in his mid body especially when he lays on his left side) Objective Vital Signs: Vital Signs - 24 hr 10/23/22 10/23/22 10/23/22 11:58 12:03 12:30 Temperature 35.3 C L Heart Rate 84 84 83 Heart Rate [ Brachial] Heart Rate [ Monitoring electrodes] Respiratory 23 22 20 Rate Blood Pressure 151/117 H 169/105 H 124/52 L Blood Pressure [Right Brachial artery] O2 Saturation 99 98 97 10/23/22 10/23/22 10/23/22 13:00 13:15 13:30 Temperature Heart Rate 84 80 82 Heart Rate [ Brachial] Heart Rate [ Monitoring electrodes] Respiratory 18 21 20 Rate Blood Pressure 138/50 H 116/58 L 122/88 H Blood Pressure [Right Brachial artery] O2 Saturation 99 99 99 10/23/22 10/23/22 10/23/22 13:45 14:00 14:15 Temperature Heart Rate 83 83 82 Heart Rate [ Brachial] Heart Rate [ Monitoring electrodes] Respiratory 20 20 20 Rate Blood Pressure 117/70 136/73 H 126/75 Blood Pressure [Right Brachial artery] O2 Saturation 100 100 99 10/23/22 10/23/22 10/23/22 14:47 15:00 15:15 Temperature Heart Rate 82 83 80 Heart Rate [ Brachial] Heart Rate [ Monitoring electrodes] Respiratory 19 18 15 Rate Blood Pressure 110/55 L 100/54 L 114/46 L Blood Pressure [Right Brachial artery] O2 Saturation 99 99 100 10/23/22 10/23/22 10/23/22 15:30 15:45 16:00 Temperature Heart Rate 80 71 78 Heart Rate [ Brachial] Heart Rate [ Monitoring electrodes] Respiratory 18 16 12 Rate Blood Pressure 134/40 H 145/65 H 158/60 H Blood Pressure [Right Brachial artery] O2 Saturation 99 99 100 10/23/22 10/23/22 10/23/22 16:15 16:30 18:00 Temperature 36.5 C Heart Rate 81 78 Heart Rate [ 79 Brachial] Heart Rate [ Monitoring electrodes] Respiratory 14 12 26 H Rate Blood Pressure 160/74 H 161/79 H Blood Pressure 96/37 L [Right Brachial artery] O2 Saturation 100 100 98 10/24/22 10/24/22 00:00 04:57 Temperature 36.3 C L 36.4 C L Heart Rate Heart Rate [ 83 Brachial] Heart Rate [ 78 Monitoring electrodes] Respiratory 23 22 Rate Blood Pressure Blood Pressure 125/50 L 132/49 H [Right Brachial artery] O2 Saturation 93 99 Oxygen O2 Source Room air I&O (Last 24 Hrs): Intake and Output Totals x24h 10/22/22 10/23/22 10/24/22 23:59 23:59 23:59 Intake Total 100 440 Output Total 0 Balance 100 440 General: Other (Lethargic, obese male, minimally communicative) HEENT: Other (Dry mucosa, Icteric sclera and skin) Neck: Supple Neuro: Other (Lethargic, minimally communicative, is fidgety, but no tremor) Cardiovascular: Regular rate Respiratory: No respiratory distress Abdomen: Other (Obese, possible fluid wave, mildly tender) Extremities: Other (trace edema) - Results Results: Laboratory Results WBC 16.2 x10^3/uL (4.8-10.8) H 10/24/22 05:04 RBC 2.07 10^6/uL (4.70-6.10) L 10/24/22 05:04 Hgb 7.4 g/dL (14.0-18.0) L 10/24/22 05:04 Hct 22.9 % (42.0-52.0) L 10/24/22 05:04 MCV 110.6 fL (80.0-94.0) H 10/24/22 05:04 MCH 35.7 pg (27.0-31.0) H 10/24/22 05:04 MCHC 32.3 g/dL (32.0-36.0) 10/24/22 05:04 RDW 18.1 % (12.0-15.0) H 10/24/22 05:04 Plt Count 85 10^3/uL (130-450) L 10/24/22 05:04 MPV 10.2 fL (7.4-11.4) 10/24/22 05:04 Neut # (Auto) 13.0 10^3/uL (1.5-6.6) H 10/24/22 05:04 Lymph # (Auto) 1.9 10^3/uL (1.5-3.5) 10/24/22 05:04 Mckenzie # (Auto) 1.2 10^3/uL (0.0-1.0) H 10/24/22 05:04 Eos # (Auto) 0.1 10^3/uL (0.0-0.7) 10/24/22 05:04 Baso # (Auto) 0.0 10^3/uL (0.0-0.1) 10/24/22 05:04 Absolute Nucleated RBC 0.00 x10^3/uL 10/24/22 05:04 Total Counted 100 10/23/22 13:38 Band Neuts % (Manual) 6 % (0-10) 10/23/22 13:38 Abnorm Lymph % (Manual) 0 % 10/23/22 13:38 Nucleated RBC % 0.0 /100WBC 10/24/22 05:04 Neutrophils # (Manual) 19.2 10^3/uL (1.5-6.6) H 10/23/22 13:38 Lymphocytes # (Manual) 1.7 10^3/uL (1.5-3.5) 10/23/22 13:38 Monocytes # (Manual) 0.2 10^3/uL (0.0-1.0) 10/23/22 13:38 Eosinophils # (Manual) 0.0 10^3/uL (0-0.7) 10/23/22 13:38 Basophils # (Manual) 0.0 10^3/uL (0-0.1) 10/23/22 13:38 Differential Comment MANUAL DIFFERENTIAL 10/23/22 13:38 Manual Slide Review Indicated 10/24/22 05:04 WBC Morphology NORMAL APPEARANCE (NORMAL) 10/24/22 05:04 Platelet Estimate DECREASED (<130,000) (NORMAL) 10/24/22 05:04 Platelet Morphology NORMAL APPEARANCE (NORMAL) 10/24/22 05:04 RBC Morph Micro Appear 1+ ANISOCYTOSIS (NORMAL) 3+ MACROCYTOSIS (NORMAL) 1+ SCHISTOCYTES (NORMAL) 10/24/22 05:04 RBC Morph Micro Appear 1+ ANISOCYTOSIS (NORMAL) 3+ MACROCYTOSIS (NORMAL) 1+ SCHISTOCYTES (NORMAL) 10/24/22 05:04 RBC Morph Micro Appear 1+ ANISOCYTOSIS (NORMAL) 3+ MACROCYTOSIS (NORMAL) 1+ SCHISTOCYTES (NORMAL) 10/24/22 05:04 PT 24.5 secs (9.9-12.6) H 10/23/22 13:38 INR 2.3 (0.8-1.2) H 10/23/22 13:38 APTT 41.1 secs (24.9-33.3) H 10/23/22 13:38 Sodium 133 mmol/L (135-145) L 10/24/22 05:04 Potassium 6.3 mmol/L (3.5-5.0) H* 10/24/22 05:04 Chloride 97 mmol/L (101-111) L 10/24/22 05:04 Carbon Dioxide 22 mmol/L (21-32) 10/24/22 05:04 Anion Gap 14.0 (6-13) H 10/24/22 05:04 BUN 64 mg/dL (6-20) H 10/24/22 05:04 Creatinine 4.0 mg/dL (0.6-1.2) H 10/24/22 05:04 Estimated GFR (MDRD) 15 (>89) L 10/24/22 05:04 Glucose 161 mg/dL (70-100) H 10/24/22 05:04 Calcium 7.7 mg/dL (8.5-10.3) L 10/24/22 05:04 Phosphorus 4.0 mg/dL (2.5-4.6) 10/24/22 05:04 Magnesium 3.8 mg/dL (1.7-2.8) H 10/24/22 05:04 Total Bilirubin 5.8 mg/dL (0.2-1.0) H 10/24/22 05:04 AST 227 IU/L (10-42) H 10/24/22 05:04 ALT 63 IU/L (10-60) H 10/24/22 05:04 Alkaline Phosphatase 131 IU/L (42-121) H 10/24/22 05:04 Ammonia 45.0 umol/L (7-35) H 10/24/22 05:04 Total Protein 6.0 g/dL (6.7-8.2) L 10/24/22 05:04 Albumin 1.6 g/dL (3.2-5.5) L 10/24/22 05:04 Globulin 4.4 g/dL (2.1-4.2) H 10/24/22 05:04 Albumin/Globulin Ratio 0.4 (1.0-2.2) L 10/24/22 05:04 Lipase 62 U/L (22-51) H 10/23/22 13:38 Urine Color BROWN 10/24/22 05:05 Urine Clarity CLEAR (CLEAR) 10/24/22 05:05 Urine pH 5.0 PH (5.0-7.5) 10/24/22 05:05 Ur Specific [place] 1.025 (1.002-1.030) 10/24/22 05:05 Urine Protein TRACE mg/dL (NEGATIVE) 10/24/22 05:05 Urine Glucose (UA) NEGATIVE mg/dL (NEGATIVE) 10/24/22 05:05 Urine Ketones TRACE mg/dL (NEGATIVE) 10/24/22 05:05 Urine Occult Blood NEGATIVE (NEGATIVE) 10/24/22 05:05 Urine Nitrite NEGATIVE (NEGATIVE) 10/24/22 05:05 Urine Bilirubin NEGATIVE (NEGATIVE) 10/24/22 05:05 Urine Urobilinogen 0.2 (NORMAL) E.U./dL (NORMAL) 10/24/22 05:05 Ur Leukocyte Esterase NEGATIVE (NEGATIVE) 10/24/22 05:05 Urine RBC 0-5 /HPF (0-5) 10/24/22 05:05 Urine WBC 0-3 /HPF (0-3) 10/24/22 05:05 Ur Squamous Epith Cells FEW Squamous (<= Few) 10/24/22 05:05 Urine Bacteria Few /HPF (None Seen) 10/24/22 05:05 Urine Casts 3-5 Hyaline Casts /LPF 10/24/22 05:05 Urine Mucus Few Strands 10/24/22 05:05 Urine Culture Comments NOT INDICATED 10/24/22 05:05 Stl C. diff Tox B Gene POSITIVE (NEGATIVE) A* 10/24/22 05:05
[2022-10-24] MEDS ORDERED: VANCOMYCIN 125 MG CAPSULE PO SCH (09:00)
[2022-10-24] MEDS: DEXTROSE 5%-0.9% NACL 1,000 ML IV SCH ×3 (10:24→17:46)
[2022-10-24] MEDS: HYDROmorphone 0.5 MG/0.5 ML SYRINGE IVP PRN ×2 (14:57→21:51)
[2022-10-24] MEDS: VANCOMYCIN 125 MG CAPSULE PO SCH ×2 (17:47→21:58)
[2022-10-25] MEDS: metroNIDAZOLE 500 MG/100 ML 500 MG/100 ML BAG IV SCH ×3 (00:40→18:48)
[2022-10-25] MEDS: SODIUM CHLORIDE FLUSH 0.9% 10 ML SYRINGE IVP SCH ×3 (02:10→16:43)
[2022-10-25] MEDS: CEFEPIME 2 GM in SODIUM CHLORIDE 0.9% MINIBAG 100 ML IV SCH ×3 (03:04→18:48)
[2022-10-25 06:03] LABS: ALBUMIN 1.3 g/dL (3.2-5.5); ALBUMIN/GLOBULIN RATIO 0.3 (1.0-2.2); BILIRUBIN,TOTAL 4.6 mg/dL (0.2-1.0); CALCIUM 7.5 mg/dL (8.5-10.3); CREATININE 4.5 mg/dL (0.6-1.2); POTASSIUM 5.9 mmol/L (3.5-5.0); TOTAL PROTEIN 5.1 g/dL (6.7-8.2)
[2022-10-25] MEDS: LACTULOSE 10 GM /15 ML UDC PO SCH ×3 (06:09→21:14)
[2022-10-25] MEDS: DEXTROSE 5%-0.9% NACL 1,000 ML IV SCH (06:09)
[2022-10-25 07:57] LABS: BASOPHILS % (AUTO) 0.2 %; EOSINOPHILS # (AUTO) 0.1 10^3/uL (0.0-0.7); EOSINOPHILS % (AUTO) 0.9 %; LYMPHOCYTES # (AUTO) 1.8 10^3/uL (1.5-3.5); LYMPHOCYTES % (AUTO) 11.4 %; MEAN CORPUSCULAR HEMOGLOBIN 35.8 pg (27.0-31.0); MEAN CORPUSCULAR HGB CONC 31.8 g/dL (32.0-36.0); MEAN CORPUSCULAR VOLUME 112.5 fL (80.0-94.0); MEAN PLATELET VOLUME 9.8 fL (7.4-11.4); MONOCYTES # (AUTO) 1.2 10^3/uL (0.0-1.0); MONOCYTES % (AUTO) 7.6 %; NEUTROPHILS # (AUTO) 12.1 10^3/uL (1.5-6.6); NEUTROPHILS % (AUTO) 79.3 %; PLT - PLATELET COUNT 74 10^3/uL (130-450); RED BLOOD COUNT 1.76 10^6/uL (4.70-6.10); RED CELL DISTRIBUTION WIDTH 18.4 % (12.0-15.0); WHITE BLOOD COUNT 15.3 x10^3/uL (4.8-10.8)
[2022-10-25 08:02] LABS: HCT - HEMATOCRIT 19.8 % (42.0-52.0); HGB - HEMOGLOBIN 6.3 g/dL (14.0-18.0)
[2022-10-25 08:03] LABS: SLIDE REVIEW? Indicated
[2022-10-25 08:17] LABS: PLATELET ESTIMATE, MANUAL DECREASED (<130,000) (NORMAL); PLATELET MORPHOLOGY NORMAL APPEARANCE (NORMAL)
[2022-10-25] MEDS: VANCOMYCIN 125 MG CAPSULE PO SCH ×4 (08:40→21:14)
[2022-10-25] MEDS: HYDROmorphone 0.5 MG/0.5 ML SYRINGE IVP PRN (08:40)
[2022-10-25] MEDS: ZINC OXIDE 20% OINT 30 GM TUBE TOP PRN (08:41)
--- NOTE | 2022-10-25 12:06 | PHARMACY PROGRESS NOTE ---
- Best Possible Medication History Admit Date and Time: 10/23/22 1644 Processed by: Pharmacy Medication History completed: Yes Patient Interview: Completed Secondary Source(s): Pharmacy records As the person ultimately responsible for medication therapy, providers are able to order a medication from an existing home medication list in [facility] via the "Reconcile Routine" prior to Confirmation of that medication by applications support lead. Such practice is discouraged except when the physician, in their clinical judgment, deems that a medical need exists for a medication without regard to previous use.
--- NOTE | 2022-10-25 15:50 | PROVIDER PROGRESS NOTE ---
Progress Note October 25, 2022 3:41 PM This gentleman is not doing well. He is sliding into hepatorenal failure and creatinine continues to rise. Continues to have an elevated potassium as well but today he is 5.9 as opposed to 6.3. Nursing has been giving him intermittent Dilaudid for pain. He is getting his lactulose. The Dilaudid does sedate him quite a bit. In one of his more lucid moments he was able to sign DPOA and POA paperwork with his . We have not been able to measure his urine output since has refused a Lowry catheter. Advance care planning conversation held with under separate dictation. Active Medications Hydromorphone HCl (Hydromorphone 0.5 Mg/0.5 Ml Syringe) 0.5 mg IVP Q4H PRN PRN Reason: Pain 8 to 10 Last Admin: 10/25/22 08:40 Dose: 0.5 mg Cefepime HCl 2 gm/ Sodium (Chloride) 100 mls @ 200 mls/hr IV Q8H [facility] Last Admin: 10/25/22 11:19 Dose: 200 mls/hr Metronidazole (Flagyl 500 Mg/100 Ml) 500 mg in 100 mls @ 100 mls/hr IV Q8H [facility] Last Infusion: 10/25/22 09:45 Dose: Infused Lactulose (Lactulose 10 Gm /15 Ml Udc) 10 gm PO TID [facility] Last Admin: 10/25/22 14:59 Dose: 10 gm Multi-Ingredient Ointment (Zinc Oxide 20% Oint 30 Gm Tube) 1 applic TOP PRN PRN PRN Reason: Skin Care Last Admin: 10/25/22 08:41 Dose: 1 applic Ondansetron HCl (Ondansetron 4 Mg/2 Ml Vial) 4 mg IVP Q6HR PRN PRN Reason: Nausea / Vomiting Sodium Chloride (Sodium Chloride Flush 0.9% 10 Ml Syringe) 10 ml IVP PRN PRN PRN Reason: NEEDED PER PROVIDER ORDERS Sodium Chloride (Sodium Chloride Flush 0.9% 10 Ml Syringe) 10 ml IVP 0100,0900,1700 [facility] Last Admin: 10/25/22 08:40 Dose: 10 ml Vancomycin HCl (Vancomycin 125 Mg Capsule) 125 mg PO QID [facility] Last Admin: 10/25/22 14:59 Dose: 125 mg Home Meds: Baclofen [Lioresal] 10 mg PO TID 02/09/22 Hydrocodone/Acetaminophen [Hydrocodone-Acetamin 10-325 mg] 1 tab PO Q4H PRN MDD 6 02/09/22 Lactulose 30 ml PO DAILY 02/09/22 Ondansetron Odt [Zofran Odt] 4 mg TL Q6H PRN 02/09/22 Tamsulosin [Flomax] 0.4 mg PO DAILY 02/09/22 Spironolactone [Aldactone] 200 mg PO DAILY 10/25/22 Torsemide 40 mg PO DAILY 10/25/22 Exam: Temperature 36.6, heart rate 82, blood pressure is 74/22 on the left. 86/17 on the right. Respirations are 18. Intake and output is positive. No urine christopher unt is being recorded. He received 1999 125 cc yesterday. And as of this dictation he is received 1537 cc. In reviewing the EMR for his vitals, his blood pressure was as high as 161 systolic on October 23. On October 24 he started dropping his pressure from 135 systolic down to 93 systolic. Today his systolic is been 121 but as low as 93. Speech is slurred, psychomotor slowing. He is able to tell me he is in the hospital. is off-and-on at the bedside. With 1 examination she was not at the bedside, and with the second conversation she was at the bedside. He is a morbidly obese male at 5 foot 9 inches tall, 172.4 kg. He is jaundiced. Neck is thick, cannot assess for JVD Diminished breath sounds diffusely but especially at the bases. Unlabored, sonorous respirations. No respiratory distress. Distant cardiac tones with a regular rate and rhythm. Abdomen, as he lays on his back, is a mountainous protuberance. Nontender. Hypoactive bowel sounds. Last bowel movement was today. He is incontinent of urine. The skin of intertriginous folds and scrotum is slightly pink and moist. Extremities have moderate pitting edema. He basically has anasarca. Arms, dependent skin of the back and buttocks, and legs are all edematous. He has bruising from various blood draws and antecubital fossa. Blood draws are getting exceedingly difficult because of his edema. Wherever there is a pinprick or skin break there is serous drainage. Neurologically he is oriented to place, but not to time. He knows that his is nearby. Speech is slow, and processing is very slow. Lab: Sodium 133, potassium 5.9, BUN 74 and continues to rise. He was 56 on admission. Creatinine is 4.5 and continues to rise from the 3.7 on admission. Glucose is 183. Total bili 4.6, AST 253, ALT 93. Ammonia on admission was 153. Yesterday he was 45 and today is 23.8. Baseline hemoglobin is 8.6. On admission he was 8.4. Today he is 6.3. There is no report of melena, or hematemesis. There is no report of a decompensated abdominal exam. Assessment/Plan - Problem List (1) Acute hepatic encephalopathy Assessment/Plan: We felt that his encephalopathy was most likely caused by his ammonia level that was due to his liver failure. He had stopped his lactulose a few days ago. We make sure he was not having a stroke and head CT was negative. We started him on lactulose per rectum because he could not take p.o. And his ammonia level has responded to normal today. But his encephalopathy is not much improved. The previous hospitalist on service spoke to his glove cuffer, Dr. Davis and feels that the patient has end-stage liver disease. Lactulose was changed from per rectum to p.o. on October 24. Advance care discussion was held with the and and a POLST form was signed indicating DO NOT RESUSCITATE with selective treatment. The understands and fatalistic Rosalino except that her is passing away in the near future. She reiterates their philosophy of avoiding hospitals because of a previous negative experience with hospice in the case of his mother. However she feels that his insurance plan would allow him to stay here in the hospital to pass away. Please see advance care planning conversation. Plan: Continue lactulose at current dose and I expect I will be reducing it slightly depending on how many bowel movements a day he is having. I will discussed with nursing to modify. (2) C. difficile diarrhea Assessment/Plan: Diarrhea was the reason he stopped his lactulose for 10 days. In spite of that the diarrhea did not get better. We checked a stool for C. difficile and a C. difficile positive. In retrospect the diarrhea, intravascular depletion, and hepatic encephalopathy are the cause of his current problems. It seems that he was tenuously stable with regards to his end-stage liver disease and this tipped him over in the wrong direction. He is on vancomycin 125 mg p.o. 4 times daily and today is day #2. He is also on IV fluids for acute kidney injury and hyperkalemia from the intravascular depletion. Plan: Continue vancomycin. Planned course of 14 days. (3) Unequal blood pressure in upper extremities Assessment/Plan: This was noted on exam on October 24. Nursing notes unequal blood pressure and left and right arm. Plan: Given his severe end-stage liver disease, no aggressive work-up for peripheral vascular disease will be started (4) Acute on chronic renal failure Conclusion/Plan: In spite of IV fluids, and support, he is sliding into hepatorenal failure. This was likely from volume depletion caused by the diarrhea. It appears he already had hepatorenal syndrome before this, an his creatinine usually runs 2.6. All labs were reviewed. His creatinine has risen to 4.5 today in spite of IVF and D50 with insulin to reduce his K+. Treatment consisted of IV fluids. Yesterday his rate was increased from 83.33 cc an hour 225 cc an hour. Spironolactone and torsemide were held. Unfortunately this is not working. I have not seen him before today, but he appears to have worsening anasarca from description of the chart, and description by nursing. Plan: Lasix 40 mg IV push to try and get rid of his anasarca. It is a difficult balance of intravascular depletion from dehydration but at the same time fluid retention from cirrhosis. (5) Hyperkalemia Conclusion/Plan: This is from his renal failure. He has received insulin and D50 treatment. Lokelma was ordered in the ER but he was too obtunded to take p.o. meds. All labs were reviewed. His potassium Is still elevated but improved at 5.9 today.He was started on Lokelma October 24. Plan: Continue Lokelma daily. Will again F/U serum K in several hours and correct hyperkalemia again if needed Avoid potassium-retaining meds (6) Leukocytosis Conclusion/Plan: White cell count is 15.3 today. He was 21.1 on admission. Chest x-ray was unremarkable. Etiology is most likely the diarrhea. Stool for bacterial culture was ordered to be sent off. Blood cultures are without growth after 1 day. Stool culture has been received and is in process. He is on empiric iv Cefepime and iv Flagyl to cover for poss SBP. Today is Day #3. He is also on po vancocin for the C dif which could also be the reason his WBC is elevated. As such, he is responding to antibiotic therapy. But we are still not clear of he has colitis, or spontaneous bacterial peritonitis as the cause of the elevated white cell count. Plan: Vancomycin p.o. will be continued by me for his C. difficile diarrhea. Day #2 Cefepime and Flagyl I will continue, today is day #3 Urinalysis has squamous cells, hyaline cast, but no UTI. Although a CT of the abdomen and pelvis was mentioned in yesterday's note. It was not ordered. That will be ordered today. Follow CBC daily I am still awaiting a urinalysis (7) HALLMAN (nonalcoholic steatohepatitis) Conclusion/Plan: This patient has a very high MELD score, and he was already told 1 year ago that he only had several weeks to live. He signed out of Hospice and has not wanted help from Hospice going forward. The is interested in him being followed by Palliative Care, which has been ordered about a week ago she said, but he has not seen TIBCO DEVELOPER Tonya Velez yet.We have ordered palliative care for consultation, but the nurse practitioner is not available till later this week. Plan: We will continue with supportive care as described above I will try and see if they will accept consult from hospice. I confirmed with that he is a DNR. I have provided the with a POLST form, signed by me, that would be scanned into his EMR, after she signs it. (8) acute anemia. No evidence of GI bleed, and I doubt hemolysis is an issue. is still wanting acute medical problems to be appropriately treated. Plan: Type and cross for 2 units of packed cells, transfuse volume reduce packed cells
--- NOTE | 2022-10-25 16:09 | ADVANCE CARE PLANNING NOTE ---
Advance Care Planning - Planning Encounter Date: 10/25/22 Time: 08:30 Purpose: Establish care goals Parties in Attendance: Hospitalist and . Decisional Capacity of the Patient: Patient unable to participate right at this moment due to recent Dilaudid dose which is left him very sleepy, slurred speech - Encounter Subjective/Patient's Story: He is originally from [facility]. Spent many years in [place] when he retired but it grew too hot so he moved to [facility] 25 years ago. 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 He has been to his for over 50 years, and she works as a structural analyst for [employer]. She says that the only reason she continues to work at the age of 73 is to maintain their insurance. His primary is [employer], and is secondary is Medicare A. She shares with me that [employer] is supposed to cover his stay while he dies. She does not want him to go to a prison. She is unable to take care of him at home due to his size. And she does not have the finances to hire private duty caregiving. She also states that they do not want hospice because of her previous negative experience with hospice regarding his mother's care. She does reiterate that he is a DO NOT RESUSCITATE, limited interventions. She does not want to de-escalate to comfort measures only. Wants us to come continue to actively treat him for any medical problems he develops at this time. Objective/Medical Story: This gentleman has nonalcoholic steatohepatitis with cirrhosis and anasarca that is now end-stage. Morbid obesity with a BMI greater than 50, and chronic stage III to stage IV renal failure. He was told a year ago, after many week hospitalizations at , that he is terminal. But he outlived their prognosis and feels that he does not want to stop treatment because he could "beat them again" if he survives this event. It appears that he was tenuously stable with his lactulose, diuretics and control of disease. But then he developed C. difficile colitis, probably 10 days before admission, and resultant destabilization of a very tenuous medical condition. He became steadily weaker and weaker with the diarrhea, and on the day of admission could not get off of the bedside commode that he managed to get himself to, 2 feet away from the bed. finally convinced him to let her call 911 and he was brought in. Since admission he has been treated for intravascular depletion with a high creatinine. High potassium. He has been resumed on his lactulose. Has been st arted on treatment for the C. difficile colitis. In spite of this the patient is not improving. His ammonia level is better and is down to 25 but today he is anemic to 6.3. Still intermittently encephalopathic. Still very weak and developing severe anasarca. His labs indicate that he sliding into hepatorenal failure. I have again discussed his poor prognosis. And I would like to do some tra nsitional planning. But is very resistant to having him leave the hospital. Goals of Care: Both he and his except that this is a possibly terminal event. As such they had filled out a POLST form yesterday that indicates DO NOT RESUSCITATE with selective treatments. However, if he is to , they wish him to stay in the hospital indefinitely until that happens. Plan: I have asked utilization management to look at his [email or web address] benefits. I want to verify whether or not Cheryl will pay for him to stay here indefinitely. Reiterated DO NOT RESUSCITATE status To continue to treat the patient for his acute medical problems including the severe anemia today. Code Status: Do Not Attempt Resuscitation Time spent on advance care plannin minutes
[2022-10-25 16:21] LABS: CALCIUM 7.4 mg/dL (8.5-10.3); CREATININE 4.9 mg/dL (0.6-1.2); POTASSIUM 5.6 mmol/L (3.5-5.0)
[2022-10-26] MEDS: metroNIDAZOLE 500 MG/100 ML 500 MG/100 ML BAG IV SCH ×2 (00:15→08:29)
[2022-10-26] MEDS: ZINC OXIDE 20% OINT 30 GM TUBE TOP PRN ×2 (00:16→06:49)
[2022-10-26] MEDS: CEFEPIME 2 GM in SODIUM CHLORIDE 0.9% MINIBAG 100 ML IV SCH ×2 (03:39→12:51)
[2022-10-26] MEDS: SODIUM CHLORIDE FLUSH 0.9% 10 ML SYRINGE IVP SCH ×2 (03:42→08:30)
[2022-10-26 05:38] LABS: BASOPHILS % (AUTO) 0.3 %; EOSINOPHILS # (AUTO) 0.2 10^3/uL (0.0-0.7); EOSINOPHILS % (AUTO) 1.8 %; HCT - HEMATOCRIT 21.4 % (42.0-52.0); LYMPHOCYTES # (AUTO) 1.9 10^3/uL (1.5-3.5); LYMPHOCYTES % (AUTO) 14.3 %; MEAN CORPUSCULAR HEMOGLOBIN 33.2 pg (27.0-31.0); MEAN CORPUSCULAR HGB CONC 31.8 g/dL (32.0-36.0); MEAN CORPUSCULAR VOLUME 104.4 fL (80.0-94.0); MEAN PLATELET VOLUME 10.4 fL (7.4-11.4); MONOCYTES % (AUTO) 7.4 %; NEUTROPHILS # (AUTO) 9.8 10^3/uL (1.5-6.6); NEUTROPHILS % (AUTO) 75.3 %; PLT - PLATELET COUNT 57 10^3/uL (130-450); RED BLOOD COUNT 2.05 10^6/uL (4.70-6.10); RED CELL DISTRIBUTION WIDTH 22.1 % (12.0-15.0)
[2022-10-26 05:49] LABS: HGB - HEMOGLOBIN 6.8 g/dL (14.0-18.0); SLIDE REVIEW? Indicated
[2022-10-26 05:55] LABS: PLATELET ESTIMATE, MANUAL DECREASED (<130,000) (NORMAL); PLATELET MORPHOLOGY NORMAL APPEARANCE (NORMAL)
[2022-10-26 05:56] LABS: WBC MORPHOLOGY (MULTIPLE) NORMAL APPEARANCE (NORMAL)
[2022-10-26 05:57] LABS: ALBUMIN 1.2 g/dL (3.2-5.5); ALBUMIN/GLOBULIN RATIO 0.3 (1.0-2.2); BILIRUBIN,TOTAL 4.9 mg/dL (0.2-1.0); CREATININE 5.1 mg/dL (0.6-1.2); POTASSIUM 5.2 mmol/L (3.5-5.0)
[2022-10-26] MEDS: LACTULOSE 10 GM /15 ML UDC PO SCH (06:45)
[2022-10-26 08:06] VITALS: BP 96/41
[2022-10-26] MEDS: VANCOMYCIN 125 MG CAPSULE PO SCH (08:30)
--- NOTE | 2022-10-26 13:24 | PROVIDER PROGRESS NOTE ---
Objective - Vital Signs/Intake & Output Reviewed Vital Signs: Yes Vital Signs: Vital Signs x48h Temp Pulse Resp BP Pulse Ox 10/26/22 08:00 36.4 C L 72 20 96/41 L 97 10/26/22 06:54 36.9 C 73 20 127/70 97 Intake & Output: Intake & Output 10/23/22 10/24/22 10/25/22 10/26/22 23:59 23:59 23:59 23:59 Intake Total 100 2925.833 2404 2420 Output Total 0 Balance 100 2925.833 2404 2420 - Lab Results Fish Bones: 10/26/22 05:27 10/26/22 05:27 Other Labs: Lab Results x24hrs 10/26/22 10/26/22 10/26/22 Range/Units 05:27 05:27 05:27 WBC 13.0 H (4.8-10.8) x10^3/uL RBC 2.05 L (4.70-6.10) 10^6/uL Hgb 6.8 L* (14.0-18.0) g/dL Hct 21.4 L (42.0-52.0) % MCV 104.4 H (80.0-94.0) fL MCH 33.2 H (27.0-31.0) pg MCHC 31.8 L (32.0-36.0) g/dL RDW 22.1 H (12.0-15.0) % Plt Count 57 L (130-450) 10^3/uL MPV 10.4 (7.4-11.4) fL Neut # (Auto) 9.8 H (1.5-6.6) 10^3/uL Lymph # (Auto) 1.9 (1.5-3.5) 10^3/uL Nuckolls # (Auto) 1.0 (0.0-1.0) 10^3/uL Eos # (Auto) 0.2 (0.0-0.7) 10^3/uL Baso # (Auto) 0.0 (0.0-0.1) 10^3/uL Absolute Nucleated RBC 0.00 x10^3/uL Nucleated RBC % 0.0 /100WBC Manual Slide Review Indicated WBC Morphology NORMAL APPEARANCE (NORMAL) Platelet Estimate DECREASED (<130,000) (NORMAL) Platelet Morphology NORMAL APPEARANCE (NORMAL) RBC Morph Micro Appear 2+ LUCIA CELLS (NORMAL) Sodium 132 L (135-145) mmol/L Potassium 5.2 H (3.5-5.0) mmol/L Chloride 102 (101-111) mmol/L Carbon Dioxide 22 (21-32) mmol/L Anion Gap 8.0 (6-13) BUN 79 H (6-20) mg/dL Creatinine 5.1 H (0.6-1.2) mg/dL Estimated GFR (MDRD) 11 L (>89) Glucose 174 H (70-100) mg/dL Calcium 7.0 L (8.5-10.3) mg/dL Total Bilirubin 4.9 H (0.2-1.0) mg/dL AST 290 H (10-42) IU/L ALT 96 H (10-60) IU/L Alkaline Phosphatase 99 (42-121) IU/L Ammonia 29.2 (7-35) umol/L Total Protein 5.0 L (6.7-8.2) g/dL Albumin 1.2 L (3.2-5.5) g/dL Globulin 3.8 (2.1-4.2) g/dL Albumin/Globulin Ratio 0.3 L (1.0-2.2) Blood Type Antibody Screen Crossmatch IS Only 10/25/22 10/25/22 Range/Units 16:07 08:46 WBC (4.8-10.8) x10^3/uL RBC (4.70-6.10) 10^6/uL Hgb (14.0-18.0) g/dL Hct (42.0-52.0) % MCV (80.0-94.0) fL MCH (27.0-31.0) pg MCHC (32.0-36.0) g/dL RDW (12.0-15.0) % Plt Count (130-450) 10^3/uL MPV (7.4-11.4) fL Neut # (Auto) (1.5-6.6) 10^3/uL Lymph # (Auto) (1.5-3.5) 10^3/uL Nuckolls # (Auto) (0.0-1.0) 10^3/uL Eos # (Auto) (0.0-0.7) 10^3/uL Baso # (Auto) (0.0-0.1) 10^3/uL Absolute Nucleated RBC x10^3/uL Nucleated RBC % /100WBC Manual Slide Review WBC Morphology (NORMAL) Platelet Estimate (NORMAL) Platelet Morphology (NORMAL) RBC Morph Micro Appear (NORMAL) Sodium 133 L (135-145) mmol/L Potassium 5.6 H (3.5-5.0) mmol/L Chloride 104 (101-111) mmol/L Carbon Dioxide 24 (21-32) mmol/L Anion Gap 5.0 L (6-13) BUN 80 H* (6-20) mg/dL Creatinine 4.9 H (0.6-1.2) mg/dL Estimated GFR (MDRD) 12 L (>89) Glucose 178 H (70-100) mg/dL Calcium 7.4 L (8.5-10.3) mg/dL Total Bilirubin (0.2-1.0) mg/dL AST (10-42) IU/L ALT (10-60) IU/L Alkaline Phosphatase (42-121) IU/L Ammonia (7-35) umol/L Total Protein (6.7-8.2) g/dL Albumin (3.2-5.5) g/dL Globulin (2.1-4.2) g/dL Albumin/Globulin Ratio (1.0-2.2) Blood Type A NEGATIVE Antibody Screen NEGATIVE Crossmatch IS Only See Detail ABX Reporting Has patient been on IV antibiotics over the past 48 hours?: Yes Assessment/Plan - Problem List (1) Acute hepatic encephalopathy Impression: (1) Acute hepatic encephalopathy Assessment/Plan: We felt that his encephalopathy was most likely caused by his ammonia level that was due to his liver failure. He had stopped his lactulose a few days ago. We make sure he was not having a stroke and head CT was negative. We started him on lactulose per rectum because he could not take p.o. And his ammonia level has responded to normal today. But his encephalopathy is not much improved. The previous hospitalist on service spoke to his rn interventional, Dr. Davis and feels that the patient has end-stage liver disease. Lactulose was changed from per rectum to p.o. on October 24. Advance care discussio n was held with the and and a POLST form was signed indicating DO NOT RESUSCITATE with selective treatment. The understands and fatalistic Rosalino except that her is passing away in the near future. She reiterates their philosophy of avoiding hospitals because of a previous negative experience with hospice in the case of his mother. However she feels that his insurance plan would allow him to stay here in the hospital to pass away. Please see advance care planning conversation. Plan: Continue lactulose at current dose and I expect I will be reducing it slightly depending on how many bowel movements a day he is having. I will discussed with nursing to modify. (2) C. difficile diarrhea Assessment/Plan: Diarrhea was the reason he stopped his lactulose for 10 days. In spite of that the diarrhea did not get better. We checked a stool for C. difficile and a C. difficile positive. In retrospect the diarrhea, intravascular depletion, and hepatic encephalopathy are the cause of his current problems. It seems that he was tenuously stable with regards to his end-stage liver disease and this tipped him over in the wrong direction. He is on vancomycin 125 mg p.o. 4 times daily and today is day #2. He is also on IV fluids for acute kidney injury and hyperkalemia from the intravascular depletion. Plan: Continue vancomycin. Planned course of 14 days. (3) Unequal blood pressure in upper extremities Assessment/Plan: This was noted on exam on October 24. Nursing notes unequal blood pressure and left and right arm. Plan: Given his severe end-stage liver disease, no aggressive work-up for peripheral vascular disease will be started (4) Acute on chronic renal failure Conclusion/Plan: In spite of IV fluids, and support, he is sliding into hepatorenal failure. This was likely from volume depletion caused by the diarrhea. It appears he al ready had hepatorenal syndrome before this, an his creatinine usually runs 2.6. All labs were reviewed. His creatinine has risen to 4.5 today in spite of IVF and D50 with insulin to reduce his K+. Treatment consisted of IV fluids. Yesterday his rate was increased from 83.33 cc an hour 225 cc an hour. Spironolactone and torsemide were held. Unfortunately this is not working. I have not seen him before today, but he appears to have worsening anasarca from description of the chart, and descri ption by nursing. Plan: Lasix 40 mg IV push to try and get rid of his anasarca. It is a difficult balance of intravascular depletion from dehydration but at the same time fluid retention from cirrhosis. (5) Hyperkalemia Conclusion/Plan: This is from his renal failure. He has received insulin and D50 treatment. Lokelma was ordered in the ER but he was too obtunded to take p.o. meds. All labs were reviewed. His potassium Is still elevated but improved at 5.9 today.He was started on Lokelma October 24. Plan: Continue Lokelma daily. Will again F/U serum K in several hours and correct hyperkalemia again if needed Avoid potassium-retaining meds (6) Leukocytosis Conclusion/Plan: White cell count is 15.3 today. He was 21.1 on admission. Chest x-ray was unremarkable. Etiology is most likely the diarrhea. Stool for bacterial culture was ordered to be sent off. Blood cultures are without growth after 1 day. Stool culture has been received and is in process. He is on empiric iv Cefepime and iv Flagyl to cover for poss SBP. Today is Day #3. He is also on po vancocin for the C dif which could also be the reason his WBC is elevated. As such, he is responding to antibiotic therapy. But we are still not clear of he has colitis, or spontaneous bacterial peritonitis as the cause of the elevated white cell count. Plan: Vancomycin p.o. will be continued by me for his C. difficile diarrhea. Day #2 Cefepime and Flagyl I will continue, today is day #3 Urinalysis has squamous cells, hyaline cast, but no UTI. Although a CT of the abdomen and pelvis was mentioned in yesterday's note. It was not ordered. That will be ordered today. Follow CBC daily I am still awaiting a urinalysis (7) HALLMAN (nonalcoholic steatohepatitis) Conclusion/Plan: This patient has a very high MELD score, and he was already told 1 year ago that he only had several weeks to live. He signed out of Hospice and has not wanted help from Hospice going forward. The is interested in him being followed by Palliative Care, which has been ordered about a week ago she said, but he has not seen HEATING AND COOLING SYSTEMS ENGINEER Tonya Velez yet.We have ordered palliative care for consultation, but the nurse practitioner is not available till later this week. Plan: We will continue with supportive care as described above I will try and see if they will accept consult from hospice. I confirmed with that he is a DNR. I have provided the with a POLST form, signed by me, that would be scanned into his EMR, after she signs it. (8) acute anemia. No evidence of GI bleed, and I doubt hemolysis is an issue. is still wanting acute medical problems to be appropriately treated. Plan: Type and cross for 2 units of packed cells, transfuse volume reduce packed cells
--- NOTE | 2022-10-26 13:39 | PROVIDER PROGRESS NOTE ---
Objective - Vital Signs/Intake & Output Vital Signs: Vital Signs x48h Temp Pulse Resp BP Pulse Ox 10/26/22 08:00 36.4 C L 72 20 96/41 L 97 10/26/22 06:54 36.9 C 73 20 127/70 97 Intake & Output: Intake & Output 10/23/22 10/24/22 10/25/22 10/26/22 23:59 23:59 23:59 23:59 Intake Total 100 2925.833 2404 2420 Output Total 0 Balance 100 2925.833 2404 2420 - Lab Results Fish Bones: 10/26/22 05:27 10/26/22 05:27 Other Labs: Lab Results x24hrs 10/26/22 10/26/22 10/26/22 Range/Units 05:27 05:27 05:27 WBC 13.0 H (4.8-10.8) x10^3/uL RBC 2.05 L (4.70-6.10) 10^6/uL Hgb 6.8 L* (14.0-18.0) g/dL Hct 21.4 L (42.0-52.0) % MCV 104.4 H (80.0-94.0) fL MCH 33.2 H (27.0-31.0) pg MCHC 31.8 L (32.0-36.0) g/dL RDW 22.1 H (12.0-15.0) % Plt Count 57 L (130-450) 10^3/uL MPV 10.4 (7.4-11.4) fL Neut # (Auto) 9.8 H (1.5-6.6) 10^3/uL Lymph # (Auto) 1.9 (1.5-3.5) 10^3/uL [place] # (Auto) 1.0 (0.0-1.0) 10^3/uL Eos # (Auto) 0.2 (0.0-0.7) 10^3/uL Baso # (Auto) 0.0 (0.0-0.1) 10^3/uL Absolute Nucleated RBC 0.00 x10^3/uL Nucleated RBC % 0.0 /100WBC Manual Slide Review Indicated WBC Morphology NORMAL APPEARANCE (NORMAL) Platelet Estimate DECREASED (<130,000) (NORMAL) Platelet Morphology NORMAL APPEARANCE (NORMAL) RBC Morph Micro Appear 2+ LUCIA CELLS (NORMAL) Sodium 132 L (135-145) mmol/L Potassium 5.2 H (3.5-5.0) mmol/L Chloride 102 (101-111) mmol/L Carbon Dioxide 22 (21-32) mmol/L Anion Gap 8.0 (6-13) BUN 79 H (6-20) mg/dL Creatinine 5.1 H (0.6-1.2) mg/dL Estimated GFR (MDRD) 11 L (>89) Glucose 174 H (70-100) mg/dL Calcium 7.0 L (8.5-10.3) mg/dL Total Bilirubin 4.9 H (0.2-1.0) mg/dL AST 290 H (10-42) IU/L ALT 96 H (10-60) IU/L Alkaline Phosphatase 99 (42-121) IU/L Ammonia 29.2 (7-35) umol/L Total Protein 5.0 L (6.7-8.2) g/dL Albumin 1.2 L (3.2-5.5) g/dL Globulin 3.8 (2.1-4.2) g/dL Albumin/Globulin Ratio 0.3 L (1.0-2.2) Blood Type Antibody Screen Crossmatch IS Only 10/25/22 10/25/22 Range/Units 16:07 08:46 WBC (4.8-10.8) x10^3/uL RBC (4.70-6.10) 10^6/uL Hgb (14.0-18.0) g/dL Hct (42.0-52.0) % MCV (80.0-94.0) fL MCH (27.0-31.0) pg MCHC (32.0-36.0) g/dL RDW (12.0-15.0) % Plt Count (130-450) 10^3/uL MPV (7.4-11.4) fL Neut # (Auto) (1.5-6.6) 10^3/uL Lymph # (Auto) (1.5-3.5) 10^3/uL [place] # (Auto) (0.0-1.0) 10^3/uL Eos # (Auto) (0.0-0.7) 10^3/uL Baso # (Auto) (0.0-0.1) 10^3/uL Absolute Nucleated RBC x10^3/uL Nucleated RBC % /100WBC Manual Slide Review WBC Morphology (NORMAL) Platelet Estimate (NORMAL) Platelet Morphology (NORMAL) RBC Morph Micro Appear (NORMAL) Sodium 133 L (135-145) mmol/L Potassium 5.6 H (3.5-5.0) mmol/L Chloride 104 (101-111) mmol/L Carbon Dioxide 24 (21-32) mmol/L Anion Gap 5.0 L (6-13) BUN 80 H* (6-20) mg/dL Creatinine 4.9 H (0.6-1.2) mg/dL Estimated GFR (MDRD) 12 L (>89) Glucose 178 H (70-100) mg/dL Calcium 7.4 L (8.5-10.3) mg/dL Total Bilirubin (0.2-1.0) mg/dL AST (10-42) IU/L ALT (10-60) IU/L Alkaline Phosphatase (42-121) IU/L Ammonia (7-35) umol/L Total Protein (6.7-8.2) g/dL Albumin (3.2-5.5) g/dL Globulin (2.1-4.2) g/dL Albumin/Globulin Ratio (1.0-2.2) Blood Type A NEGATIVE Antibody Screen NEGATIVE Crossmatch IS Only See Detail
--- NOTE | 2022-10-26 14:18 | DISCHARGE SUMMARY ---
"Discharge Summary Admit Date: 10/23/22 Discharge Date: 10/26/22 Discharging Provider: Dr. Josefina Padilla Primary Care Provider: Dr. Mitchel Davis Code Status: Do Not Attempt Resuscitation Condition at Discharge: Poor Discharge Disposition: 50 Hospice/Home DC/Xfer - DIAGNOSES Discharge Diagnoses with Status of Each Condition: End stage liver failure Acute hepatic encephalopathy C. 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 He is followed by Dr. Davis. The patient was last here 6 months ago with sepsis from cellulitis. He has described that he already outlived the prognosis given to him for his HALLMAN and cirrhosis therefore he does not want to yet go to hospice. Just several days ago (10/15/22) he signed a new POLST form while he was on a telehealth visit with his PCP Dr. Davis, however there was no doctor that countersigned it. The POLST form indicates he now wants to be a DNR and wants selective treatment. said that the POLST form was faxed to Dr. Davis and he is to send it back to her email with his signature to finalize it. She has not received that signed form from Dr Davis yet. Ten days ago the patient developed watery brown diarrhea and stopped using his prescribed Lactulose. says he tried taking Pepto-Bismol and Imodium to decrease the diarrhea. He was still able to eat small meals and drink liquids, which he did every 3 hours. With the ongoing diarrhea, he became weaker over the 10 days. Today he got up from bed to his bedside commode, which is 2 feet away, but then could not lift himself up off the commode to get back into bed, and he tried for 2 hours. Since getting up and onto the commode he became more somnolent today. Over those 2 hours the convinced him to have an ambulance come, and she called 911. Paramedics recommended that he be brought to the ER and he did not refuse. Lab work in the ED today showed that he has a creatinine of 3.7 (his baseline creatinine is 2.6). Potassium 6.5 which decreased to 6.3 with IV saline. Lokelma orally was also ordered but he cannot swallow because he is too somnolent, so it was not given. He has an ammonia level of 153 (his baseline ammonia level is between 25 and 44). He was given Lactulose per rectum. His vital signs are all stable in the ED. The ED provider spoke to me on the Hospitalist team to have this patient admitted. CODE STATUS is now DNR, this was reviewed with and confirmed. - CONSULTS | PROCEDURES Procedures: Chest X-Ray Head CT Blood cultures Stool cultures - HOSPITAL COURSE Hospital Course: (1) Acute hepatic encephalopathy His encephalopathy is very likely caused by the extremely high ammonia level of 153.5 from his liver failure. A head CT showed no acute process. He was started on Lactulose TID per rectum, since he was obtunded and could not take med ications by mouth. He was switched back to PO lactulose on October 24 as he was less obtunded. Throughout his admission his ammonia decreased significantly. Today his level is 29.2, well within normal limits. Despite this, his encephalopathy has not improved. This patient's prognosis is very poor. Originally, the patient and his wished to be full code and avoid hospitals. Advance care discussion was held, where a POLST form was signed indicating DO NOT RESUSCITATE with selective treatment. Today they had a conversation with Dr. Christina Westbrook about hospice. Pt and ultimately agreed to enter hospice care and be GIP. He is being discharged, and hospice will order comfort measures. (2) C. difficile diarrhea Patient presented after having diarrhea for 10 days. He stopped taking his lactulose hoping this was the cause of the diarrhea. However it persisted despit e holding the lactulose, making an infectious etiology highly suspicious. The stool was C. difficile positive; he was placed in infectious isolation. In retrospect the diarrhea, intravascular depletion, and hepatic encephalopathy are the cause of his current problems. He was started on Vancomycin 125 mg p.o. 4 times daily, and IV fluids. Today his stool cultures are still pending, except for E. Coli shigatoxins, which were negative. He is being discharged, and hospice will begin comfort measures. (3) Unequal blood pressure in upper extremities Patient was discovered to have unequal bp in his upper extremities. The bp was manually checked, with his last recorded readings being: Left 100/45, right 88/36. Given his severe end-stage liver disease, no aggressive work-up for peripheral vascular disease was started. (4) Acute on chronic renal failure Onset was likely from volume depletion caused by the diarrhea. It appears he already had hepatorenal syndrome before this, as his creatinine usually runs at 2.6. Treatment was IV fluids and D50 with insulin to reduce his potassium. Lasix 40 mg IV push was also given. Spironolactone and torsemide were both held. Today's creatinine was 5.1. Unfortunately, his anasarca did not improve, as to day his weight has increased from 172.4 kg to 210.5 kg. He is being discharged, and hospice will being comfort measures. (5) Hyperkalemia His potassium levels increased due to his renal failure. Pt was treated with insulin, D50, and Lokelma. Today his potassium has improved from 5.6 to 5.2, which is still slightly elevated. He is being discharged, and hospice will order comfort measures. (6) Leukocytosis On admission, there was no obvious etiology to the leukocytosis. A chest x-ray was obtained, and was unremarkable. Stool cultures were ordered. He was empirically started on iv Cefepime and iv Flagyl to cover for possible SBP. Today is day #4 and his cultures have not returned complete, as only E. Coli shigatoxins were negative. A urinalysis was not repeated due to the patient's decreased urinary output. He is to be discharged, and hospice will begin comfort measures. (7) HALLMAN (nonalcoholic steatohepatitis) Conclusion/Plan: This patient has a very high MELD score, and he was already told 1 year ago that he only had several weeks to live. He signed out of Hospice and has not wanted help from Hospice going forward. Today he and his spoke to Dr. Christina Westbrook in regards to hospice. They ultimately decided it was best for the pt to be transferred to hospice service and be GIP. - ALLERGIES Allergies/Adverse Reactions: Allergies Allergy/AdvReac Type Severity Reaction Status Date / Time Iodinated Contrast Media Allergy Unknown Verified 10/23/22 16:47 Penicillins Allergy Hives Verified 10/23/22 12:04 - MEDICATIONS Home Medications: Ambulatory Orders Medication Instructions Recorded Confirmed Baclofen [Lioresal] 10 mg PO TID 02/09/22 10/24/22 Hydrocodone/Acetaminophen 1 tab PO Q4H PRN MDD 6 02/09/22 10/24/22 [Hydrocodone-Acetamin 10-325 mg] Lactulose 30 ml PO DAILY 02/09/22 10/24/22 Ondansetron Odt [Zofran Odt] 4 mg TL Q6H PRN 02/09/22 10/24/22 Tamsulosin [Flomax] 0.4 mg PO DAILY 02/09/22 10/24/22 Spironolactone [Aldactone] 200 mg PO DAILY 10/25/22 10/25/22 Torsemide 40 mg PO DAILY 10/25/22 10/25/22 - PHYSICAL EXAM AT DISCHARGE General Appearance: positive: Anxious, Lethargic Eyes Bilateral: positive: EOMI Respiratory: positive: Chest non-tender, No respiratory distress, Other (Lung sounds diminished, likely due to body habitus.) Cardiovascular: positive: Regular rate & rhythm Peripheral Pulses: positive: 1+ Abdomen: positive: Non-tender, Other (Hypoactive bowel sounds) Skin: positive: Warm, Other (Jaundiced. Diffuse ecchymosis) Extremities: positive: Other (Anasarca. Reports generalized pain on his L leg.) Neurologic/Psychiatric: positive: Motor nml, Sensation nml, Disoriented to time, Slurred/abnml speech - LABS Result Diagrams: 10/26/22 05:27 10/26/22 05:27 - DIAGNOSTIC IMAGING Diagnostic Imaging Results: Final report reviewed - SEPSIS Current Stage of Sepsis: Ruled out"
--- NOTE | 2022-10-26 14:46 | Discharge Plan ---
Discharge Plan Problem Reviewed?: Yes Disposition: 50 Hospice/Home DC/Xfer Condition: Poor Diet: Low Sodium Activity Restrictions: Activity as Tolerated Shower Restrictions: No Driving Restrictions: No Health Concerns: Unfortunately you have nonalcoholic steatohepatitis which is resulted in end- stage cirrhotic disease. You had already been told that you have a very severe grave prognosis as of a year ago. But you seem to stabilize and do well until 10 days prior to this admission when he developed severe diarrhea. It ended up being C. difficile diarrhea. This is destabilized you and put you into liver and kidney failure. We do not think you will make it. And as such we are transitioning you to hospice care. Hospice has recognize the severity of your illness and has excepted you into the GIP service so that you can pass away here. Plan of Treatment: Transition to GIP service. Anticipated will be here in the hospital Care Goals: Comfort measures No Smoking: If you smoke, Please STOP! Call for help. Follow-up with: MIRIAM HARDIN MD [Primary Care Provider] -
== END 2022-10-26 15:24 | disposition hospice, home (50) | DRG 442 ==
LOC: EDUNIT# → ED 11:57 → MS2 16:44
PROVIDERS: ADMIT Internal Medicine; ATTEND Specialist
PROC: 30233N1 Transfusion of Nonautologous Red Blood Cells into Peripheral Vein, Percutaneous Approach (ICD-10-PCS; principal; 2022-10-25)
DX: K76.82 Hepatic encephalopathy (principal); A04.72 Enterocolitis due to Clostridium difficile, not specified as recurrent; N17.9 Acute kidney failure, unspecified; E87.1 Hypo-osmolality and hyponatremia; N18.4 Chronic kidney disease, stage 4 (severe); K72.90 Hepatic failure, unspecified without coma; E87.5 Hyperkalemia; D72.829 Elevated white blood cell count, unspecified; K75.81 Nonalcoholic steatohepatitis (NASH); K74.60 Unspecified cirrhosis of liver; E66.01 Morbid (severe) obesity due to excess calories; D63.1 Anemia in chronic kidney disease; E87.8 Other disorders of electrolyte and fluid balance, not elsewhere classified; Z66 Do not resuscitate; Z79.899 Other long term (current) drug therapy
CPT/HCPCS: 36415; 70450; 71045; 80048; 80053; 81001; 82140; 83690; 83735; 84100; 84132; 85025; 85610; 85730; 86850; 86900; 86901; 86920; 87040; 87045; 87046; 87427; 87493; 99285; A9270; J1170; J1815; J8499; P9016; 87086

== ENCOUNTER 2022-10-26 14:23 | Inpatient (IN) | payer OTHER ==
--- NOTE | 2022-10-26 14:34 | HISTORY & PHYSICAL EXAMINATION ---
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 reports he was dx'd w/HALLMAN and cirrhosis in 2014, but was not a transplant candidate d/t "his excellent health". He did well and was managed w/diuretics and lactulose until last summer, when he was admitted to [facility] with worsening volume overload. reports he was in the hospital for several weeks and at d/c was referred to hospice as his prognosis was felt to be 2-3 weeks. Pt had gradual improvement in his renal function and did well until 02/25, when he was admitted w/LE cellulitis. He has been home w/home health services since. notes that over the past 3 months, he has become homebound and spent most of his time in bed. He could still get up and go to the bathroom and move around the house. Recently, he'd developed constipation and they were titrating up his lactulose. Then, approximately 1 1/2 weeks ago, he developed profuse diarrhea. He'd also had some nausea/emesis. His lactulose was held, but he continued to have diarrhea and became progressively weaker. He was eating very little. On 10/23, he attempted to get up to the bedside commode to sit for a bit but was too weak to get back to bed. Life assist was called and d/t his overall clinical appearance, he was brought to the ED. He was admitted w/NADIYA and hyperkalemia in CKD, hepatic encephalopathy w/Ammonia level of 153, and leukocytosis. He was initiated on cefepime (to cover potential SBP) and double covered for c diff w/metronidazole and oral vancomycin. Since admission, he has had worsening renal failure and anemia. He received 2 units PRBCs last night for Hgb of 6.3 yesterday am (no known bleeding). He has been treated for his hepatic encephalopathy and his ammonia level has improved from 153 to 45. Unfortunately, his creatinine has steadily worsened. At baseline it is 2.5. On admission, it was 3.7 and today it is 5.1. His albumin has declined from 1.8 on admission to 1.2 (BL 1.9). His bilirubin is 4.9. Pt is uncomfortable, only able to speak 2-3 words before stopping to catch his breath. He expresses knowledge that he is dying and notes his only wish is to see his dog, eat some licorice and drink Coke before he passes. History - Past Medical History Neuro: reports: None Endocrine/Autoimmune: reports: Other (Class 3 obesity w/BMI 50) GI: reports: Other (HALLMAN w/cirrhosis) : reports: Chronic bladder infection HEENT: reports: None Psych: reports: None Musculoskeletal: reports: Other Derm: reports: None, Other - Family & Social History Family History Comment/Other: Dad at approximately 69 of heart disease. Mom at approximately age 70 of pancreatic cancer. 1 sister is healthy. No children Living Situation: With family Social History Notes: He never had a problem with alcohol abuse. Was a non- smoker. Originally from [facility]. Spent many years in [place] and [place] but it grew too hot so he moved to [facility] 25 years ago. 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 - Substance History Use: Uses substance without health or social issues: NONE - POLST Patient has POLST: Yes POLST Status: DNR Meds/Allgy - Home Medications Home Medications: Ambulatory Orders Medication Instructions Recorded Confirmed Baclofen [Lioresal] 10 mg PO TID 02/09/22 10/24/22 Hydrocodone/Acetaminophen 1 tab PO Q4H PRN MDD 6 02/09/22 10/24/22 [Hydrocodone-Acetamin 10-325 mg] Lactulose 30 ml PO DAILY 02/09/22 10/24/22 Ondansetron Odt [Zofran Odt] 4 mg TL Q6H PRN 02/09/22 10/24/22 Tamsulosin [Flomax] 0.4 mg PO DAILY 02/09/22 10/24/22 Spironolactone [Aldactone] 200 mg PO DAILY 10/25/22 10/25/22 Torsemide 40 mg PO DAILY 10/25/22 10/25/22 - Allergies Allergies/Adverse Reactions: Allergies Allergy/AdvReac Type Severity Reaction Status Date / Time Iodinated Contrast Media Allergy Unknown Verified 10/23/22 16:47 Penicillins Allergy Hives Verified 10/23/22 12:04 Review of Systems - Constitutional Constitutional: reports: Fatigue, Weakness, Poor appetite - Respiratory Respiratory: reports: SOB at rest - Gastrointestinal Gastrointestinal: reports: Diarrhea (improving) - All Other Systems All Other Systems: reports: Other (weeeping edema) Exam - Vital Signs Reviewed Vital Signs: Yes - Physical Exam General Appearance: positive: Moderate distress, Lethargic, Other (Acutely and chronically ill appearing elderly male, mildly jaundiced, furrowed brow, lethargic) Eyes Bilateral: positive: Normal inspection, PERRL Neck: positive: Nml inspection Respiratory: positive: Breath sounds nml (diminished), Other (moderately 2-3 word dyspnea) Cardiovascular: positive: Regular rate & rhythm, No murmur Abdomen: positive: Non-tender, Nml bowel sounds, Other (anasarca) Skin: positive: Other (mildly jaundiced, anasarca noted, bruising to bilateral forearms and LLE at site of SCD) Extremities: positive: Other (4+ BLE edema, weeping and a blister noted to RLE, BUE also have 3-4+ edema) Comments/Other: frequent myoclonus noted Conclusion/Plan - Other Other Results/Comments: 1. Evolving probable hepatorenal syndrome 2. Oliguric NADIYA w/hyperkalemia in the setting of CKD3 3. Acute metabolic encephalopathy, likely multifactorial 4. 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 Anasarca w/weeping LE edema 6. 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 Dyspnea 8. Class 3 obesity 9. Anemia 10. Hypoalbuminemia, acute on chronic 11. c diff colitis Long conversation w/ and then with patient and at bedside. Pt is clearly approaching end of life. He is dyspneic, appears to be in pain, has worsening encephalopathy, progressive oliguria/anasarca/renal failure and c diff colitis. At this time, I think he will benefit from GIP admission for mgmt of his worsening symptoms. He lost IV access today and it will be very difficult to regain access d/t his significant UE edema. Will initiate oral comfort meds and d/c abx. Anticipate he will lose his swallow fairly quickly and will then transition to a Kaylin catheter for medicine administration. Given the complexities of his condition, I do not feel he can safely be transferred to another level of care. Anticipated prognosis is 72 hours or less.
[2022-10-26] MEDS ORDERED: PETROLATUM WHITE 5 GM PACKET TOP PRN (14:55)
[2022-10-26] MEDS ORDERED: LORazepam 0.5 MG TABLET PO PRN (14:55)
[2022-10-26] MEDS ORDERED: OLANZapine ODT 5 MG TABLET TL PRN (14:55)
[2022-10-26] MEDS ORDERED: HYDROmorphone 2 MG TABLET PO PRN (14:55)
[2022-10-26] MEDS ORDERED: MIN OIL/DIMETHICON/COCONUT OIL 92 GM TUBE TOP PRN (14:55)
[2022-10-26] MEDS ORDERED: GLYCOPYRROLATE 1 MG TABLET PO PRN (14:55)
[2022-10-26] MEDS ORDERED: ONDANSETRON ODT 4 MG TABLET TL PRN (15:00)
[2022-10-26] MEDS ORDERED: HYDROmorphone 1 MG/ML CARPUJECT IVP PRN (17:23)
[2022-10-26] MEDS ORDERED: LORazepam 2 MG/ML VIAL IVP PRN (17:24)
[2022-10-26] MEDS ORDERED: LOPERAMIDE 2 MG CAPSULE PO PRN (17:29)
[2022-10-26] MEDS ORDERED: LOPERAMIDE 2 MG CAPSULE PO STA (17:29)
[2022-10-26] MEDS: HYDROmorphone 1 MG/ML CARPUJECT IVP SCH ×2 (18:37→21:54)
[2022-10-27] MEDS: HYDROmorphone 1 MG/ML CARPUJECT IVP SCH ×6 (00:57→21:01)
[2022-10-27 10:48] VITALS: BP 102/33
--- NOTE | 2022-10-27 19:18 | PROVIDER PROGRESS NOTE ---
Subjective - Prog Note Date Prog Note Date: 10/27/22 Prog Note Time: 12:30 - Subjective Subjective: Pt's spouse is at bedside. She notes they had a good night. He was able to eat a bit of food, visit w/their dog, and watch t.v. OVernight, he was comfortable. She notes he has been less responsive today. She asks whether we can reduce pain medications to allow him to be more awake. Pt appears comfortable. Briefly turned his head towards me and opened his eyes. notes minimal urine output but ongoing diarrhea. Objective - Vital Signs/Intake & Output Reviewed Vital Signs: Yes Intake & Output: Intake & Output 10/24/22 10/25/22 10/26/22 10/27/22 23:59 23:59 23:59 23:59 Intake Total 117 120 Balance 117 120 - Objective General Appearance: positive: No acute distress, Lethargic, Other (nonverbal) Respiratory: positive: No respiratory distress, Breath sounds nml (diminished) Cardiovascular: positive: Regular rate & rhythm, No murmur Abdomen: positive: Non-tender. negative: Other (hypoactive bowel tones, anasarca persists) Skin: positive: Other (mild jaundice) Extremities: positive: Other (4+ BLE edema, unchanged blister/weeping to RLE) Assessment/Plan - Problem List (1) Liver cirrhosis secondary to HALLMAN (nonalcoholic steatohepatitis) Impression: Reassured his that his decline is d/t disease process (and worsening renal failure), not medications. Advised she can ask RN to give only 1/2 dose this afternoon to see if he will be more alert, but anticipate that will not be likely. Continue GIP level of care for frequent medication monitoring and IV analgesia. (2) Acute on chronic renal failure Impression: Progressive oliguria per spouse. She declined a barry cath yesterday. Very little UOP per her repoart. (3) Anasarca Impression: Persistent. (4) C. difficile diarrhea Impression: Ongoing diarrhea per spouse. Imodium given x 1 yesterday. NO significant improvement in diarrhea. (5) Obesity, Class III, BMI 40-49.9 (morbid obesity) Impression: Likely a significant contributor to his short prognosis (6) Acute blood loss anemia Impression: Likely d/t UGIB (black tarry stool observed last night) (7) DNR (do not resuscitate) Impression: Anticipated prognosis 48 hours or less.
[2022-10-27] MEDS: CARBOXYMETHYLCELLULOSE OPHTH DROPS EACHEYE PRN (21:01)
[2022-10-28] MEDS: CARBOXYMETHYLCELLULOSE OPHTH DROPS EACHEYE PRN ×2 (01:18→05:03)
[2022-10-28] MEDS: HYDROmorphone 1 MG/ML CARPUJECT IVP SCH ×4 (01:18→14:45)
--- NOTE | 2022-10-28 11:54 | PROVIDER PROGRESS NOTE ---
Subjective - Prog Note Date Prog Note Date: 10/28/22 - Subjective Subjective: 71 yo male w/suspected evolving hepatorenal syndrome, Class 3 obesity, HALLMAN cirrhosis, and GIB. notes he has been unresponsive since yesterday. No concerns about his medication. She ultimately decided yesterday not to have the RN cut his dose in 06/07. She reports he has had increasing apneic episodes today. Continued weeping from BLEs. Objective - Vital Signs/Intake & Output Intake & Output: Intake & Output 10/25/22 10/26/22 10/27/22 10/28/22 23:59 23:59 23:59 23:59 Intake Total 117 120 Balance 117 120 - Objective General Appearance: positive: No acute distress, Other (comatose ill appearing, jaundiced male) Respiratory: positive: No respiratory distress, Breath sounds nml (diffusely diminished) Cardiovascular: positive: Regular rate & rhythm Abdomen: positive: Non-tender, Other (anasarca 4+) Skin: positive: Warm, Dry, Cyanosis (mild cyanosis to R foot), Other (mild jaundice) Extremities: positive: Other (4+ BLE edema) Assessment/Plan - Problem List (1) Liver cirrhosis secondary to HALLMAN (nonalcoholic steatohepatitis) Impression: Pt now comatose, likely multifactorial from evolving hepatorenal syndrome, worsening encephalopathy and his impending imminent . (2) Acute on chronic renal failure Impression: Little urine output reported (he is still having liquid stool, so staff are not sure if he is voiding). (3) Anasarca Impression: Persistent. Continued weeping from BLEs (4) C. difficile diarrhea Impression: Persistent liquid stool being passed per spouse. (7) DNR (do not resuscitate) Impression: Anticipated prognosis of 24 hours or less based on overall clinical appearance and apnea. However, he is not tachycardic, raising possibility of longer prognosis. Pt remains GIP appropriate for mgmt of pain/dyspnea and ongoing need for IV analgesia.
--- NOTE | 2022-10-28 19:17 | PROVIDER PROGRESS NOTE ---
Hospitalist Cross-cover Note - Cross-Cover Note Cross-Cover Note: RN called to have me pronounce patient. He has been failing over the last 2 days. Increasing apneic spells. End-stage liver disease from HALLMAN. and his beloved pet at the bedside. I examined the patient with no spontaneous respiration, no cardiac rhythm on auscultation, and pupils fixed, dilated. Skin cold to touch. Patient pronounced at 7:14 PM
--- NOTE | 2022-10-29 16:58 | DISCHARGE SUMMARY ---
Discharge Summary Admit Date: 10/26/22 Discharge Date: 10/28/22 Discharge Disposition: 20 - DIAGNOSES Admission Diagnoses: 1. Evolving probable hepatorenal syndrome 2. Oliguric NADIYA w/hyperkalemia in the setting of CKD3 3. Acute metabolic encephalopathy, likely multifactorial 4. 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 Anasarca w/weeping LE edema 6. 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 Dyspnea 8. Class 3 obesity 9. Anemia 10. Hypoalbuminemia, acute on chronic 11. c diff colitis Discharge Diagnoses with Status of Each Condition: 1. Evolving probable hepatorenal syndrome 2. Oliguric NADIYA w/hyperkalemia in the setting of CKD3 3. Acute metabolic encephalopathy, likely multifactorial 4. 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 Anasarca w/weeping LE edema 6. 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 Dyspnea 8. Class 3 obesity 9. Anemia 10. Hypoalbuminemia, acute on chronic 11. c diff colitis - HPI History of Present Illness: see H&P. Briefly, pt had known hx of HALLMAN-induced cirrhosis and CKD3. He was admitted w/c diff colitis and evolved worsening renal failure concerning for evolving hepatorenal syndrome. D/t his progressive sxs and grim prognosis, he was admitted to hospice for GIP level of care. He was placed on IV analgesia w/hydromorphone q4 hrs. - HOSPITAL COURSE Hospital Course: Pt met GIP level of care for the duration of his stay, d/t need for close monitoring for complications related to IV analgesia. He received frequent RN assessments and q4hr hydromorphone IV. He became unresponsive on 10/27/22. He passed peacefully on 10/28/22. - ALLERGIES Allergies/Adverse Reactions: Allergies Allergy/AdvReac Type Severity Reaction Status Date / Time Iodinated Contrast Media Allergy Unknown Verified 10/23/22 16:47 Penicillins Allergy Hives Verified 10/23/22 12:04 - MEDICATIONS Home Medications: Ambulatory Orders Medication Instructions Recorded Confirmed Baclofen [Lioresal] 10 mg PO TID 02/09/22 10/24/22 Hydrocodone/Acetaminophen 1 tab PO Q4H PRN MDD 6 02/09/22 10/24/22 [Hydrocodone-Acetamin 10-325 mg] Lactulose 30 ml PO DAILY 02/09/22 10/24/22 Ondansetron Odt [Zofran Odt] 4 mg TL Q6H PRN 02/09/22 10/24/22 Tamsulosin [Flomax] 0.4 mg PO DAILY 02/09/22 10/24/22 Spironolactone [Aldactone] 200 mg PO DAILY 10/25/22 10/25/22 Torsemide 40 mg PO DAILY 10/25/22 10/25/22
== END 2022-10-28 19:14 | disposition expired | DRG 441 ==
LOC: MS2 14:23
PROVIDERS: ADMIT Family Medicine; ATTEND Family Medicine
DX: K76.7 Hepatorenal syndrome (principal); G93.41 Metabolic encephalopathy; N17.9 Acute kidney failure, unspecified; Z68.43 Body mass index [BMI] 50.0-59.9, adult; A04.72 Enterocolitis due to Clostridium difficile, not specified as recurrent; D68.4 Acquired coagulation factor deficiency; D62 Acute posthemorrhagic anemia; K92.2 Gastrointestinal hemorrhage, unspecified; N18.30 Chronic kidney disease, stage 3 unspecified; K75.81 Nonalcoholic steatohepatitis (NASH); E87.5 Hyperkalemia; D69.6 Thrombocytopenia, unspecified; R60.0 Localized edema; E66.01 Morbid (severe) obesity due to excess calories; R06.00 Dyspnea, unspecified; D64.9 Anemia, unspecified; E88.09 Other disorders of plasma-protein metabolism, not elsewhere classified; G25.3 Myoclonus; Z66 Do not resuscitate; K74.60 Unspecified cirrhosis of liver
CPT/HCPCS: A9270; J1170; J3490